=== PATIENT | female | born 1930 | race Caucasian/White ===

== ENCOUNTER 2017-08-05 05:09 | Inpatient (IN) | payer MEDICARE ==
[2017-08-05] MEDS ORDERED: MORPHINE SULFATE 10 MG/ML INJ IV ONE (06:22)
[2017-08-05] MEDS ORDERED: HYDROMORPHONE HCL INJ/PF 2 MG/ML AMPULE IV ONE ×2 (07:13→09:10)
[2017-08-05] MEDS ORDERED: ONDANSETRON HCL INJ/PF 4 MG/2 ML SDV IV ONE (07:55)
--- NOTE | 2017-08-05 07:55 | ER Document Report ---
ED General - General Chief Complaint: Fall Injury Stated Complaint: HIP PAIN Time Seen by Provider: 08/05/17 06:07 Mode of Arrival: Medic Information source: Patient Notes: 87-year-old female history of hypertension presents after mechanical fall with complaints of left hip pain. Patient notes she was unable to stand after the fall. She admits to pain at the left hip denies any weakness or numbness is able to move her toes with no difficulty TRAVEL OUTSIDE OF THE [place] IN LAST 30 DAYS: No - HPI Onset: Just prior to arrival Onset/Duration: Sudden Quality of pain: Achy Severity: Moderate Pain Level: 5 - Patient already given fentanyl prior to arrival Associated symptoms: Body/muscle aches, Other Exacerbated by: Movement Relieved by: Denies Similar symptoms previously: No Recently seen / treated by doctor: No - Related Data Allergies/Adverse Reactions: ceftriaxone [From Rocephin] Allergy (Verified 08/05/17 05:33) codeine [Codeine] Allergy (Verified 08/08/11 16:45) Home Medications: Current Home Medications Fluticasone/Salmeterol [Advair 250-50 Diskus 14 Dose/Diskus] 1 puff IH Q12 08/05 [History] Furosemide [Lasix 20 mg Tablet] 20 mg PO DAILYP PRN 08/05/17 [History] Ibuprofen [Motrin 400 mg Tablet] 400 mg PO Q12 08/05/17 [History] Lisinopril [Prinivil 10 mg Tablet] 10 mg PO DAILY 08/05/17 [History] Melatonin [Melatin] 3 mg PO QHS 08/05/17 [History] Multivitamin [Animal Shapes Vitamins] 1 tab PO DAILY 08/05/17 [History] Omeprazole 40 mg PO BIDBS 08/05/17 [History] Paroxetine HCl [Paxil] 10 mg PO QAM 08/05/17 [History] Potassium Gluconate [Potassium] 99 mg PO DAILY 08/05/17 [History] Prednisone [Deltasone 5 mg Tablet] 7.5 mg PO DAILY 08/05/17 [History] Tiotropium [place] [Spiriva [place] 5 Cap/Kit (18 Mcg/Cap)] 1 puff IH DAILY 08/05/17 [History] Tramadol HCl [Ultram 50 mg Tablet] 50 mg PO Q12HP PRN 08/05/17 [History] Past Medical History - Social History Smoking Status: Unknown if Ever Smoked Cigarette use (# per day): No Chew tobacco use (# tins/day): No Smoking Education Provided: No Family History: Reviewed & Not Pertinent Patient has suicidal ideation: No Patient has homicidal ideation: No Renal/ Medical History: Denies: Hx Peritoneal Dialysis Musculoskeltal Medical History: Reports Hx Arthritis Past Surgical History: Reports: Hx Appendectomy, Hx Cholecystectomy, Hx Hysterectomy - partial - Immunizations Hx Diphtheria, Pertussis, Tetanus Vaccination: No Review of Systems - Review of Systems Notes: REVIEW OF SYSTEMS: CONSTITUTIONAL : Denies fever, chills, or sweats. Denies recent illness. EENT: Denies eye, ear, throat, or mouth pain or symptoms. Denies nasal or sinus congestion or discharge. Denies throat, tongue, or mouth swelling or difficulty swallowing. CARDIOVASCULAR: Denies chest pain. Denies palpitations or racing or irregular heart beat. Denies ankle edema. RESPIRATORY: Denies cough, cold, or chest congestion. Denies shortness of breath, difficulty breathing, or wheezing. GASTROINTESTINAL: Denies abdominal pain or distention. Denies nausea, vomiting , or diarrhea. Denies blood in vomitus, stools, or per rectum. Denies black, tarry stools. Denies constipation. GENITOURINARY: Denies difficulty urinating, painful urination, burning, frequency, blood in urine, or discharge. FEMALE GENITOURINARY: Denies vaginal bleeding, heavy or abnormal periods, irregular periods. Denies vaginal discharge or odor. MUSCULOSKELETAL: Admits to left hip pain SKIN: Denies rash, lesions or sores. HEMATOLOGIC : Denies easy bruising or bleeding. LYMPHATIC: Denies swollen, enlarged glands. NEUROLOGICAL: Denies confusion or altered mental status. Denies passing out or loss of consciousness. Denies dizziness or lightheadedness. Denies headache. Denies weakness or paralysis or loss of use of either side. Denies problems with gait or speech. Denies sensory loss, numbness, or tingling. Denies seizures. PSYCHIATRIC: Denies anxiety or stress. Denies depression, suicidal ideation, or homicidal ideation. ALL OTHER SYSTEMS REVIEWED AND NEGATIVE. PHYSICAL EXAMINATION: GENERAL: Well-appearing, well-nourished and in no acute distress. HEAD: Atraumatic, normocephalic. EYES: Pupils equal round and reactive to light, extraocular movements intact, conjunctiva are normal. ENT: Nares patent, oropharynx clear without exudates. Moist mucous membranes. NECK: Normal range of motion, supple without lymphadenopathy LUNGS: Breath sounds clear to auscultation bilaterally and equal. No wheezes rales or rhonchi. HEART: Regular rate and rhythm without murmurs ABDOMEN: Soft, nontender, nondistended abdomen. No guarding, no rebound. No masses appreciated. Female : deferred Musculoskeletal: Tenderness on palpation of the left hip, limited range of motion of the leg secondary to pain NEUROLOGICAL: Cranial nerves grossly intact. Normal speech, normal gait. Normal sensory, motor exams PSYCH: Normal mood, normal affect. SKIN: Warm, Dry, normal turgor, no rashes or lesions noted. Dictation was performed using [employer] recognition software Physical Exam - Vital signs Vitals: Temp Pulse Resp BP Pulse Ox 97.4 F 90 18 171/66 H 97 08/05/17 05:22 08/05/17 05:22 08/05/17 05:22 08/05/17 05:22 08/05/17 05:22 Course - Re-evaluation Re-evalutation: 08/05/17 09:27 ortho paged after x-ray noted a fracture 08/05/17 15:56 Patient had been admitted to the hospitalist service, I spoke with Dr. manley who will be consulted for orthopedic treatment - Vital Signs Vital signs: Temp Pulse Resp BP Pulse Ox 97.4 F 90 18 140/58 H 96 08/05/17 05:22 08/05/17 05:22 08/05/17 05:22 08/05/17 12:01 08/05/17 12:01 - Laboratory Result Diagrams: 08/05/17 14:35 08/05/17 14:35 - Diagnostic Test Radiology reviewed: Image reviewed, Reports reviewed Discharge - Discharge Clinical Impression: Hip fracture Qualifiers: Encounter type: initial encounter Fracture type: closed Laterality: left Qualified Code(s): S72.002A - Fracture of unspecified part of neck of left femur , initial encounter for closed fracture Fall Qualifiers: Encounter type: initial encounter Qualified Code(s): W19.XXXA - Unspecified fall, initial encounter Fracture of femoral neck, left Qualifiers: Encounter type: initial encounter Fracture type: closed Qualified Code(s): S72.002A - Fracture of unspecified part of neck of left femur, initial encounter for closed fracture Condition: Stable Disposition: ADMITTED INPATIENT Admitting Provider: Hospitalist Unit Admitted: Telemetry
--- NOTE | 2017-08-05 08:45 | RADIOLOGY REPORT (SQ) ---
EXAM DESCRIPTION: HIP BILATERAL COMPLETED DATE/TIME: 08/05/2017 7:54 am REASON FOR STUDY: fall COMPARISON: None. NUMBER OF VIEWS: Two views. TECHNIQUE: AP pelvis and additional frog-leg view of the right and left hip. LIMITATIONS: None. FINDINGS: MINERALIZATION: Osteoporotic RIGHT HIP: No fracture or dislocation. No significant joint space narrowing or bulky bony spurring N o worrisome bone lesions. LEFT HIP: Acute left subcapital femoral neck fracture with varus angulation and foreshortening. PUBIS AND ISCHIUM: No fracture. PELVIS: No fracture. SACRUM: No fracture or dislocation. No worrisome bone lesions. LOWER LUMBAR SPINE: Lower lumbar fusion SOFT TISSUES: Rectosigmoid anastomotic reshma. Multiple laparoscopic tacks over the lower anterior abdominal wall post ventral hernia repair OTHER: No other significant finding. IMPRESSION: Acute left subcapital femoral neck fracture with varus angulation and foreshortening at the fracture site TECHNICAL DOCUMENTATION: JOB ID: [id number] [employer]- All Rights Reserved
[2017-08-05] MEDS ORDERED: ACETAMINOPHEN 325 MG TABLET PO PRN (09:47)
[2017-08-05] MEDS ORDERED: ONDANSETRON HCL INJ/PF 4 MG/2 ML SDV IV PRN (09:47)
--- NOTE | 2017-08-05 10:58 | PDOC CONSULTATION ---
History of Present Illness Admission Date/PCP: 08/05/17 09:53 History of Present Illness: MARJORIE GOMEZ is a 87 year old female who presents to the emergency department with a femoral neck fracture status post a fall in her home while trying to leaf size picker ice in her kitchen. Past Medical History Musculoskeltal Medical History: Reports: Arthritis Past Surgical History Past Surgical History: Reports: Appendectomy, Cholecystectomy, Hysterectomy - partial Social History Smoking Status: Former Smoker Family History Parental Family History Reviewed: Yes Children Family History Reviewed: Yes Sibling(s) Family History Reviewed.: Yes Medication/Allergy Home Medications: Aspirin [Aspirin 325 mg Tablet] 325 mg PO QHS 08/08/11 Calcium Carbonate [Calcium] 1,000 mg PO BID 08/08/11 Calcium Carbonate [Maalox Regular Strength] 600 mg PO QHS 08/08/11 Fluticasone/Salmeterol [Advair 250-50 Diskus] 1 puff IH DAILY 08/08/11 Garlic [Garlic Oil] 1,000 mg PO DAILY 08/08/11 Hydroxychloroquine Sulfate 200 mg PO DAILY 08/08/11 Lisinopril [Prinivil 10 mg Tablet] 10 mg PO DAILY 08/08/11 Magnesium Oxide [Magnesium] 500 mg PO DAILY 08/08/11 [place]-3 Fatty Acids/Fish Oil [Fish Oil 1,000 Mg Capsule] 1 each PO DAILY Paroxetine HCl 10 mg PO DAILY 08/08/11 Potassium Gluconate 99 mg PO DAILY 08/08/11 Quinine Sulfate 325 mg PO 08/08/11 Tiotropium [place] [Spiriva] 18 mcg IH DAILY 08/08/11 Tramadol HCl [Ultram 50 mg Tablet] 50 mg PO BID 08/08/11 Zolpidem Tartrate [Ambien 5 Mg Tablet] 5 mg PO QHS 08/08/11 Allergies/Adverse Reactions: ceftriaxone [From Rocephin] Allergy (Verified 08/05/17 05:33) codeine [Codeine] Allergy (Verified 08/08/11 16:45) Physical Exam Vital Signs: Temp Pulse Resp BP Pulse Ox 36.3 C 90 18 171/66 H 98 08/05/17 05:22 08/05/17 05:22 08/05/17 05:22 08/05/17 05:22 08/05/17 06:00 General appearance: PRESENT: mild distress, well-developed, well-nourished Head exam: PRESENT: atraumatic, normocephalic Respiratory exam: PRESENT: unlabored Pulses: PRESENT: normal dorsalis pedis pul, +2 pedal pulses bilateral Vascular exam: PRESENT: normal capillary refill Additional comments: Patient lying on her right side in hospital bed with left hip in flexion and with slight internal rotation. Patient is asleep when I entered the room however was arousable when asked direct questions. On exam patient's left hip is tender to palpation along the greater trochanter and down the lateral aspect of the femur. She is nonambulatory and due to pain with initiation of motion was not able to complete strength range of motion test of the left hip. There was brisk capillary refill to toes on bilateral lower extremities and she has minimal pedal edema. Her distal neurovascular exam is intact and her sensory and motor functions are intact. Additional comments: As stated before patient is nonambulatory due to pain with weightbearing and ambulation. Patient will remain nonweightbearing status until the date of her surgery to prevent further angulation of her fracture. As stated her distal neurovascular exam is intact. Neurological exam: PRESENT: alert, awake, oriented to person, oriented to place , oriented to time, oriented to situation, CN II-XII grossly intact. ABSENT: motor sensory deficit Psychiatric exam: PRESENT: appropriate affect, normal mood. ABSENT: homicidal ideation, suicidal ideation Skin exam: PRESENT: dry, intact, warm. ABSENT: cyanosis, rash Results Impressions: Hip X-Ray 08/05/17 06:07 IMPRESSION: Acute left subcapital femoral neck fracture with varus angulation and foreshortening at the fracture site Assessment & Plan - Diagnosis (1) Fracture of femoral neck, left Qualifiers: Encounter type: initial encounter Fracture type: closed Qualified Code(s) : S72.002A - Fracture of unspecified part of neck of left femur, initial encounter for closed fracture Is this a current diagnosis for this admission?: Yes - Plan Summary Plan Summary: 87-year-old white female who presented to the emergency department with a left femoral neck fracture status post a fall in her home while picking up ice. She will be admitted as an inpatient to the hospital where she will remain nonweightbearing status and nonambulatory until the date of her surgery. We will plan for surgery on Saturday to repair the femoral neck fracture with a left hip hemiarthroplasty. She will then be discharged from the hospital later this week.
[2017-08-05] MEDS ORDERED: HYDROMORPHONE HCL INJ/PF 2 MG/ML AMPULE IV PRN (12:22)
[2017-08-05] MEDS ORDERED: NALOXONE HCL INJ/PF 0.4 MG/1 ML SDV ONE (14:34)
[2017-08-05] MEDS ORDERED: NALOXONE HCL INJ/PF 0.4 MG/1 ML SDV IV ONE (14:45)
[2017-08-05 15:10] LABS: MEAN CORPUSCULAR HEMOGLOBIN 30.3 pg (27.0-33.4); MEAN CORPUSCULAR HGB CONC 33.3 g/dL (32.0-36.0); MEAN CORPUSCULAR VOLUME 91 fl (80-97); RED BLOOD COUNT 4.28 10^6/uL (3.72-5.28); RED CELL DISTRIBUTION WIDTH 14.8 % (11.5-14.0); WHITE BLOOD COUNT 17.1 10^3/uL (4.0-10.5)
[2017-08-05 15:37] LABS: ANION GAP 10 (5-19); BLOOD UREA NITROGEN 29 mg/dL (7-20); CALCIUM 9.4 mg/dL (8.4-10.2); CARBON DIOXIDE 28 mmol/L (22-30); CHLORIDE 107 mmol/L (98-107); CREATININE RESULT 0.63 mg/dL (0.52-1.25); GLUCOSE 138 mg/dL (75-110); POTASSIUM 4.6 mmol/L (3.6-5.0); SODIUM 144.7 mmol/L (137-145)
--- NOTE | 2017-08-05 16:35 | RADIOLOGY REPORT (SQ) ---
EXAM DESCRIPTION: CHEST SINGLE VIEW COMPLETED DATE/TIME: 08/05/2017 4:21 pm REASON FOR STUDY: Dyspnea, hypoxia COMPARISON: 08/08/2011 EXAM PARAMETERS: NUMBER OF VIEWS: One view. TECHNIQUE: Single frontal radiographic view of the chest acquired. RADIATION DOSE: NA LIMITATIONS: None. FINDINGS: LUNGS AND PLEURA: There is ill-defined opacification in the upper lobes. MEDIASTINUM AND HILAR STRUCTURES: There appears to be a large hiatal hernia. HEART AND VASCULAR STRUCTURES: Heart normal in size. Normal vasculature. BONES: There are rib fractures on the left of uncertain age. HARDWARE: None in the chest. OTHER: No other significant finding. IMPRESSION: Hiatal hernia. Cannot exclude upper lobe pneumonia on either side. Left rib fractures of uncertain age. TECHNICAL DOCUMENTATION: JOB ID: [id number] [employer]- All Rights Reserved
--- NOTE | 2017-08-05 16:55 | EKG REPORT ---
SEVERITY:- ABNORMAL ECG - SINUS TACHYCARDIA PROBABLE LEFT VENTRICULAR HYPERTROPHY : Confirmed by: Josie Etienne 05-Aug-2017 16:55:07
--- NOTE | 2017-08-05 16:58 | HISTORY AND PHYSICAL E ---
History and Physical NAME: MARJORIE GOMEZ : 1930 AGE: 87Y ADMITTED: 08/05/2017 ROOM: 423 CODE STATUS: DO NOT RESUSCITATE/DO NOT INTUBATE. PRIMARY CARE PROVIDER: Dr. Frye CHIEF COMPLAINT: Fall. HISTORY OF PRESENT ILLNESS: The patient is an 87-year-old female with a past medical history of chronic obstructive pulmonary disease and chronic pain. The patient presented to the emergency department via EMS after sustaining a mechanical fall resulting in a left femur fracture. The patient unfortunately has been unable to provide any history, so history has been obtained by current and previous medical records as well as family that is present at the bedside. Upon evaluation of the patient, she was found to be obtunded with depressed respirations around 6 breaths a minute. The patient was also completely obtunded and unable to respond even to sternal rub. Alerted nursing staff and 0.4 of Narcan was administered and the patient did awaken but was still groggy afterwards. The patient was maintaining her own airway and oxygenating well, and respirations improved to approximately 16-18 breaths a minute. The patient had been quite difficult to get her pain under control. According to the ER physician, the patient was in excruciating pain and required a total of 50 of fentanyl via EMS as well as 6 mg of IV morphine and an additional 2 mg of IV Dilaudid. According to the family, the patient does take tramadol at home and they are suspicious that the patient may have actually been abusing it, so they are uncertain of how much she has had on board. According to the family, the patient has been falling more recently and actually fell a couple of months ago and sustained rib fractures which were treated at Urgent Care. The patient, according to the family, has a history of frequent urinary tract infections as well. Given the findings of fracture, the case was discussed with Dr. Castro and the patient was referred to the hospitalist for admission and management. PAST MEDICAL HISTORY: 1. Chronic obstructive pulmonary disease. 2. Fibromyalgia. 3. History of peptic ulcer disease. PAST SURGICAL HISTORY: 1. Hernia repair. 2. Colon resection. 3. Total knee replacement. ALLERGIES: 1. CEFTRIAXONE. 2. CODEINE. HOME MEDICATIONS: 1. Advair 250/50 one puff inhalation q.12 hours. 2. Lasix 20 mg p.o. daily p.r.n. 3. Motrin 400 mg p.o. q.12 hours. 4. Lisinopril 10 mg p.o. daily. 5. Multivitamin 1 tablet p.o. daily. 6. Omeprazole 40 mg p.o. b.i.d. 7. Paxil 10 mg p.o. q. a.m. 8. Potassium 99 mg p.o. daily. 9. Prednisone 7.5 mg p.o. daily. 10. Spiriva 1 puff inhalation daily. 11. Ultram 50 mg p.o. q.12 hours. SOCIAL HISTORY: The patient currently resides at home alone. The patient is retired. The patient's surrogate decision maker is Mikayla who may be reached at [phone]. The patient has a long history of tobacco use that exceeds 60-year pack history. Denies any alcohol use or illicit drug use. FAMILY MEDICAL HISTORY: Positive for coronary artery disease and stroke. REVIEW OF SYSTEMS: Full review of systems cannot be appreciated given the patient's obtunded state. PHYSICAL EXAMINATION: GENERAL: On examination, the patient is a frail appearing 87-year-old female that was completely obtunded. However, after administration of Narcan, the patient's respiration rate has improved. She will awaken but is unable to provide any history. She does not appear to be in any acute distress at this time. VITAL SIGNS: Temperature is 97.4, pulse 90, respirations 16, blood pressure is 148/61, oxygen saturation is 95% on 3 L nasal cannula. SKIN: Pale and dry. No rash. She is not diaphoretic. HEENT: Pupils are now reactive, previously pinpoint. Conjunctivae are pink. There is no JVD. No mouth lesions. Tongue is midline. Neck is supple. No palpable lymphadenopathy or thyromegaly. CARDIOVASCULAR: Heart is regular with no murmur or rub. CHEST: Clear, symmetrical, unlabored. ABDOMEN: Soft, nontender, nondistended. Bowel sounds are present. BACK: No CVA tenderness or sacral edema. EXTREMITIES: No clubbing, cyanosis, edema, or peripheral signs of embolization. Pedal pulses +2 noted bilaterally. PSYCHIATRIC: Unable to fully assess. DIAGNOSTICS: Lab values are as follow: There are no labs reported at this time. Hip x-ray obtained on 08/05/2017 reveals acute left femoral neck fracture with various aggregation and foreshortening at the fracture site. IMPRESSION AND PLAN: 1. Left hip fracture. Will consult Orthopedist and manage pain judiciously but cautiously given that the patient has had to receive Narcan and follow. 2. Non-intentional opiate overdose. The patient has been reversed with Narcan and is now maintaining her own airway and is breathing sufficiently. 3. Chronic obstructive pulmonary disease exacerbation. Will continue the patient's home medication. 4. Wedaw-qa-dzgseox hypoxemic respiratory failure. It appears that the patient desaturated down to 75 and is now requiring supplemental O2. The patient is steroid dependent but is not currently oxygen dependent at this time. 5. History of peptic ulcer disease. Will resume the patient's dual PPI therapy. 6. Hypertension. Will resume the patient's home blood pressure medication. 7. Preoperative state. Will obtain basic labs on the patient including CBC, chemistry. Will also obtain EKG given the uncertainty of the patient's fall for further guidance. DISPOSITION: The patient is a DO RESUSCITATE/DO NOT INTUBATE. Pending patient's symptomatology and diagnostic findings, will reevaluate in the a.m. Will admit the patient to inpatient telemetry as the patient's expected length of stay will surpass 2 midnights. Time spent on this admission including assessment, plan, physical examination, attempt at patient education, family meeting, specialty collaboration is 60 minutes. ADDENDUM: Upon review of the patient's CBC, it appears that her white count is elevated to 17.1. The patient's chemistries are relatively unremarkable. The patient appears to be euvolemic. Will obtain urine culture given that the patient does have a history of frequent urinary tract infections and will also add blood cultures. Given the patient's respiratory depression although most likely opiate induced, will obtain a chest x-ray as well. EKG is still pending. Time spent on this followup includes 10 minutes. DICTATING PHYSICIAN: JACQUES JESUS NP [id number] PHY#: [id number] ID: [id number] JOB#: [id number] ACCT: [id number] cc:JACQUES JESUS NP > [facility]
[2017-08-05] MEDS ORDERED: LEVOFLOXACIN 500 MG TABLET PO SCH (17:15)
[2017-08-05] MEDS: HEPARIN SOD (PORCINE) 5,000 UNIT/ML 1 ML SYRINGE SUBCUT SCH ×2 (17:30→21:47)
[2017-08-05] MEDS: DOCUSATE SODIUM 100 MG CAPSULE PO SCH ×2 (17:30→17:37)
[2017-08-05] MEDS: LANSOPRAZOLE 30 MG TAB.RAP.DR PO SCH (17:37)
[2017-08-05] MEDS ORDERED: LEVOFLOXACIN 500 MG/D5W RTU 500 MG/100 ML RTUPB IV SCH (18:00)
[2017-08-05] MEDS: 1/2 NORMAL SALINE 1,000 ML IV PRN (18:18)
[2017-08-05] MEDS: LEVOFLOXACIN 500 MG TABLET PO SCH (18:18)
[2017-08-05 19:50] LABS: APPEARANCE,URINE CLEAR; BILIRUBIN,URINE NEGATIVE (NEGATIVE); GLUCOSE, URINE NEGATIVE (NEGATIVE); KETONES,URINE TRACE mg/dL (NEGATIVE); LEUKOCYTE ESTERASE,URINE NEGATIVE (NEGATIVE); NITRITE,URINE NEGATIVE (NEGATIVE); PROTEIN,URINE NEGATIVE (NEGATIVE); URINE SPECIFIC GRAVITY 1.012; UROBILINOGEN,URINE NEGATIVE mg/dL (<2.0)
[2017-08-05] MEDS: FLUTICASONE/SALMETEROL DISKUS 250-50 MCG/DOSE IH SCH (21:47)
[2017-08-05] MEDS: TRAMADOL HCL 50 MG TABLET PO PRN (21:47)
[2017-08-06] MEDS: HYDROMORPHONE HCL INJ/PF 2 MG/ML AMPULE IV PRN ×2 (02:15→09:25)
[2017-08-06 05:08] LABS: HEMATOCRIT 36.7 % (36.0-47.0); HEMOGLOBIN 12.3 g/dL (12.0-15.5); HGB HCT DIFFERENCE 0.2; MEAN CORPUSCULAR HEMOGLOBIN 30.2 pg (27.0-33.4); MEAN CORPUSCULAR HGB CONC 33.4 g/dL (32.0-36.0); MEAN CORPUSCULAR VOLUME 90 fl (80-97); RED BLOOD COUNT 4.06 10^6/uL (3.72-5.28); WHITE BLOOD COUNT 15.2 10^3/uL (4.0-10.5)
[2017-08-06 05:34] LABS: ANION GAP 15 (5-19); BLOOD UREA NITROGEN 30 mg/dL (7-20); CALCIUM 9.3 mg/dL (8.4-10.2); CARBON DIOXIDE 22 mmol/L (22-30); CHLORIDE 107 mmol/L (98-107); GLUCOSE 87 mg/dL (75-110); POTASSIUM 4.6 mmol/L (3.6-5.0); SODIUM 144.4 mmol/L (137-145)
[2017-08-06] MEDS: HEPARIN SOD (PORCINE) 5,000 UNIT/ML 1 ML SYRINGE SUBCUT SCH ×3 (06:45→23:22)
[2017-08-06] MEDS: LANSOPRAZOLE 30 MG TAB.RAP.DR PO SCH ×2 (06:45→17:52)
--- NOTE | 2017-08-06 06:51 | PDOC PROGRESS REPORT ---
Subjective Progress Note for:: 08/06/17 Subjective:: 87-year-old white female with femoral neck fracture lying recumbent in hospital bed on her right side this morning. Patient reports that she is more comfortable and has noticed a decrease in the edema about the left hip. Physical Exam Vital Signs: Temp Pulse Resp BP Pulse Ox 37.0 C 108 H 16 114/80 95 08/06/17 04:17 08/06/17 04:17 08/06/17 04:17 08/06/17 04:17 08/06/17 04:17 Intake & Output 08/04/17 08/05/17 08/06/17 06:59 06:59 06:59 Intake Total 118 Output Total 1000 Balance -882 Weight 95.3 kg General appearance: PRESENT: no acute distress, well-developed, well-nourished Head exam: PRESENT: atraumatic, normocephalic Respiratory exam: PRESENT: unlabored Additional comments: Patient has nasal cannula in place. Pulses: PRESENT: normal dorsalis pedis pul, +2 pedal pulses bilateral Additional comments: Patient lying recumbent in hospital bed on her right side. She is less tender to palpation and not as edematous about the left hip as when examined yesterday. She has brisk capillary refill 2 feet on bilateral extremities her distal neurovascular exam is intact and her sensory motor functions are intact. She remains nonambulatory. Additional comments: Patient remains nonambulatory. Neurological exam: PRESENT: alert, awake, oriented to person, oriented to place , oriented to time, oriented to situation, CN II-XII grossly intact. ABSENT: motor sensory deficit Psychiatric exam: PRESENT: appropriate affect, normal mood. ABSENT: homicidal ideation, suicidal ideation Skin exam: PRESENT: dry, intact, warm. ABSENT: cyanosis, rash Additional comments: Ecchymosis is noted on previous exam is still present however has not progressed. Results Laboratory Results: 08/06/17 04:48 08/06/17 04:48 08/05/17 08/05/17 08/05/17 14:35 14:35 19:00 WBC 17.1 H RBC 4.28 Hgb 13.0 Hct 39.0 MCV 91 MCH 30.3 MCHC 33.3 RDW 14.8 H Plt Count 238 Sodium 144.7 Potassium 4.6 Chloride 107 Carbon Dioxide 28 Anion Gap 10 BUN 29 H Creatinine 0.63 Est GFR ( Amer) > 60 Est GFR (Non-Af Amer) > 60 Glucose 138 H Calcium 9.4 Urine Color YELLOW Urine Appearance CLEAR Urine pH 5.0 Ur Specific [place] 1.012 Urine Protein NEGATIVE Urine Glucose (UA) NEGATIVE Urine Ketones TRACE H Urine Blood NEGATIVE Urine Nitrite NEGATIVE Ur Leukocyte Esterase NEGATIVE Urine RBC (Auto) 0 08/06/17 08/06/17 04:48 04:48 WBC 15.2 H RBC 4.06 Hgb 12.3 Hct 36.7 MCV 90 MCH 30.2 MCHC 33.4 RDW 15.0 H Plt Count 207 Sodium 144.4 Potassium 4.6 Chloride 107 Carbon Dioxide 22 Anion Gap 15 BUN 30 H Creatinine 0.60 Est GFR ( Amer) > 60 Est GFR (Non-Af Amer) > 60 Glucose 87 Calcium 9.3 Urine Color Urine Appearance Urine pH Ur Specific [place] Urine Protein Urine Glucose (UA) Urine Ketones Urine Blood Urine Nitrite Ur Leukocyte Esterase Urine RBC (Auto) Impressions: Chest X-Ray 08/05/17 00:00 IMPRESSION: Hiatal hernia. Cannot exclude upper lobe pneumonia on either side. Left rib fractures of uncertain age. Hip X-Ray 08/05/17 06:07 IMPRESSION: Acute left subcapital femoral neck fracture with varus angulation and foreshortening at the fracture site Assessment & Plan - Diagnosis (1) Fracture of femoral neck, left Qualifiers: Encounter type: initial encounter Fracture type: closed Qualified Code(s) : S72.002A - Fracture of unspecified part of neck of left femur, initial encounter for closed fracture Is this a current diagnosis for this admission?: Yes - Plan Summary Plan Summary: 87-year-old white female with left femoral neck fracture who will remain nonambulatory until she has obtained clearance for surgery. We will plan for left hip hemiarthroplasty likely on Saturday.
[2017-08-06] MEDS ORDERED: (PENDING PHARMACY ID) (Paroxetine Hcl [Paxil] 10 MG) PO SCH (08:00)
[2017-08-06] MEDS: DOCUSATE SODIUM 100 MG CAPSULE PO SCH ×2 (09:27→17:52)
[2017-08-06] MEDS: PAROXETINE HCL 20 MG TABLET PO SCH (09:28)
[2017-08-06] MEDS: PREDNISONE 5 MG TABLET PO SCH (09:28)
[2017-08-06] MEDS: MULTIVITAMIN TABLET PO SCH (09:28)
[2017-08-06] MEDS: FLUTICASONE/SALMETEROL DISKUS 250-50 MCG/DOSE IH SCH ×2 (09:29→23:22)
[2017-08-06] MEDS: LISINOPRIL 10 MG TABLET PO SCH (09:29)
[2017-08-06] MEDS: TIOTROPIUM BROMIDE DPI 5 CAP/KIT (18 MCG/CAP) IH SCH (09:30)
[2017-08-06] MEDS ORDERED: MULTIVITAMIN PO SCH (10:00)
--- NOTE | 2017-08-06 11:42 | PDOC PROGRESS REPORT ---
Subjective Progress Note for:: 08/06/17 Subjective:: Pt is seen on morning rounds with her adult son present. She states that her hip pain is relatively well controlled if she remains in a right-side lying position. However, she reports that this positioning has caused her to have abdominal and chest discomfort described as "fullness" that the patient r/t her hiatal hernia. She denies typical cardiac chest pain symptoms, palpitations, and dyspnea. She does report a productive cough, which she states is chronic for her and no worse than her normal. She is very frustrated by the multiple lines/cables. She asks to have the telemetry, continuous pulse ox, oxygen and IV lines all discontinued. A long discussion was had with regards to importance of continued monitoring for patient's safety, especially in consideration of her poor respiratory tolerance of narcotic pain medications. She has numerous questions regarding the risks and benefits of her planned hips surgery and initially requests to be transferred to [place] to obtain a second opinion. Pt was reassured and all questions were answered; she is now accepting of planned procedure with Dr. Lopes. Pt and family member are encouraged to let nursing know if they have further questions and I will return to speak with them. Physical Exam Vital Signs: Temp Pulse Resp BP Pulse Ox 99.0 F 106 H 15 132/57 H 93 08/06/17 07:36 08/06/17 07:36 08/06/17 07:36 08/06/17 07:36 08/06/17 07:36 Intake & Output 08/05/17 08/06/17 08/07/17 06:59 06:59 06:59 Intake Total 718 Output Total 1300 Balance -582 Weight 95.3 kg General appearance: PRESENT: no acute distress, well-developed, well-nourished, other - frail appearing Head exam: PRESENT: atraumatic, normocephalic Eye exam: PRESENT: conjunctiva pink, EOMI, PERRLA. ABSENT: scleral icterus Ear exam: PRESENT: normal external ear exam Mouth exam: PRESENT: moist, tongue midline Neck exam: ABSENT: carotid bruit, JVD, lymphadenopathy, thyromegaly Respiratory exam: PRESENT: clear to auscultation benji, symmetrical, unlabored. ABSENT: crackles, rales, rhonchi, tachypnea, wheezes Cardiovascular exam: PRESENT: RRR. ABSENT: diastolic murmur, rubs, systolic murmur, tachycardia Pulses: PRESENT: normal dorsalis pedis pul Vascular exam: PRESENT: normal capillary refill GI/Abdominal exam: PRESENT: normal bowel sounds, soft. ABSENT: distended, guarding, mass, organolmegaly, rebound, tenderness Rectal exam: PRESENT: deferred Extremities exam: PRESENT: tenderness - Lt hip. ABSENT: calf tenderness, clubbing, full ROM - Lt lower extremity 2/2 pain, pedal edema Neurological exam: PRESENT: alert, awake, oriented to person, oriented to place , oriented to time, oriented to situation, CN II-XII grossly intact. ABSENT: motor sensory deficit Psychiatric exam: PRESENT: agitated, anxious, appropriate affect. ABSENT: homicidal ideation, suicidal ideation Skin exam: PRESENT: dry, intact, warm. ABSENT: cyanosis, rash Results Laboratory Results: 08/06/17 04:48 08/06/17 04:48 08/05/17 08/05/17 08/05/17 14:35 14:35 19:00 WBC 17.1 H RBC 4.28 Hgb 13.0 Hct 39.0 MCV 91 MCH 30.3 MCHC 33.3 RDW 14.8 H Plt Count 238 Sodium 144.7 Potassium 4.6 Chloride 107 Carbon Dioxide 28 Anion Gap 10 BUN 29 H Creatinine 0.63 Est GFR ( Amer) > 60 Est GFR (Non-Af Amer) > 60 Glucose 138 H Calcium 9.4 Urine Color YELLOW Urine Appearance CLEAR Urine pH 5.0 Ur Specific [place] 1.012 Urine Protein NEGATIVE Urine Glucose (UA) NEGATIVE Urine Ketones TRACE H Urine Blood NEGATIVE Urine Nitrite NEGATIVE Ur Leukocyte Esterase NEGATIVE Urine RBC (Auto) 0 08/06/17 08/06/17 04:48 04:48 WBC 15.2 H RBC 4.06 Hgb 12.3 Hct 36.7 MCV 90 MCH 30.2 MCHC 33.4 RDW 15.0 H Plt Count 207 Sodium 144.4 Potassium 4.6 Chloride 107 Carbon Dioxide 22 Anion Gap 15 BUN 30 H Creatinine 0.60 Est GFR ( Amer) > 60 Est GFR (Non-Af Amer) > 60 Glucose 87 Calcium 9.3 Urine Color Urine Appearance Urine pH Ur Specific [place] Urine Protein Urine Glucose (UA) Urine Ketones Urine Blood Urine Nitrite Ur Leukocyte Esterase Urine RBC (Auto) Impressions: Chest X-Ray 08/05/17 00:00 IMPRESSION: Hiatal hernia. Cannot exclude upper lobe pneumonia on either side. Left rib fractures of uncertain age. Hip X-Ray 08/05/17 06:07 IMPRESSION: Acute left subcapital femoral neck fracture with varus angulation and foreshortening at the fracture site Assessment & Plan - Diagnosis (1) Leukocytosis Qualifiers: Leukocytosis type: unspecified Qualified Code(s): D72.829 - Elevated white blood cell count, unspecified Is this a current diagnosis for this admission?: Yes Plan: Improving (17.1-->15.2); may be partially an inflammatory response r/t hip fracture. However, pt reports multiple left rib fractures several weeks ago and development of a productive cough in the setting of COPD. Chest xray completed in the ED could not exclude an upper lobe pneumonia. Urine culture: NGTD Blood culture: Pending 1- Will empirically cover with Levaquin for CAP (2) Fracture of femoral neck, left Qualifiers: Encounter type: initial encounter Fracture type: closed Qualified Code(s) : S72.002A - Fracture of unspecified part of neck of left femur, initial encounter for closed fracture Is this a current diagnosis for this admission?: Yes Plan: 1-orthopedics consulted; planned repair tomorrow with Dr. Lopes (3) Overdose of opiate or related narcotic Qualifiers: Encounter type: subsequent encounter Injury intent: accidental or unintentional Qualified Code(s): T40.601D - Poisoning by unspecified narcotics , accidental (unintentional), subsequent encounter Is this a current diagnosis for this admission?: Yes Plan: Pt was noted to have poor respiratory effort and hypoxemia shortly after arrival from ED and was provided one dose of Narcan with acceptable response. She will remain on continuous pulse oximetry while receiving IV narcotic pain medications. (4) COPD (chronic obstructive pulmonary disease) Qualifiers: COPD type: unspecified COPD Qualified Code(s): J44.9 - Chronic obstructive pulmonary disease, unspecified Is this a current diagnosis for this admission?: Yes Plan: Continue home regiment; Advair, Spiriva, chronic Prednisone (5) Acute and chronic respiratory failure Qualifiers: Respiratory failure complication: hypoxia Qualified Code(s): J96.21 - Acute and chronic respiratory failure with hypoxia Is this a current diagnosis for this admission?: Yes Plan: Improved. Pt initially desaturated down to 75 and required supplemental oxygen. She is steroid dependent but does not use home oxygen. (6) History of peptic ulcer disease Is this a current diagnosis for this admission?: Yes Plan: Continue Prevacid. (7) Hiatal hernia with GERD Is this a current diagnosis for this admission?: Yes Plan: As above; hopefully pt's symptoms will improve once the hip is repaired and she can be comfortably positioned with HOB elevated. (8) Hypertension Qualifiers: Hypertension type: essential hypertension Qualified Code(s): I10 - Essential (primary) hypertension Is this a current diagnosis for this admission?: Yes Plan: HTN improved today; remains elevated but is now acceptable given pt's age. 1- Continue home regiment; lisinopril (9) Pre-operative anxiety Is this a current diagnosis for this admission?: Yes Plan: Long discussion had with patient and adult son with regard to risks and benefits of planned hip surgery by Dr. Lopes. Encouraged pt and family to discuss with nursing any further questions and assured pt that I would return to answer questions if she requested. 1- Continue home regiment; Paxil - Time Time Spent with patient: 35 or more minutes Medications reviewed and adjusted accordingly: Yes
[2017-08-06] MEDS: 1/2 NORMAL SALINE 1,000 ML IV PRN (14:28)
[2017-08-06] MEDS: LEVOFLOXACIN 500 MG TABLET PO SCH (17:52)
[2017-08-06] MEDS: TRAMADOL HCL 50 MG TABLET PO PRN (23:24)
[2017-08-07] MEDS ORDERED: VANCOMYCIN HCL 1,000 MG in DEXTROSE 5%-WATER 250 ML IV PRN (05:00)
[2017-08-07] MEDS ORDERED: RINGERS SOLUTION,LACTATED 1,000 ML IV PRN (05:00)
[2017-08-07] MEDS ORDERED: TRANEXAMIC ACID INJ/PF 1,000 MG/10 ML SDV IV PRN (05:00)
[2017-08-07] MEDS: HEPARIN SOD (PORCINE) 5,000 UNIT/ML 1 ML SYRINGE SUBCUT SCH ×3 (05:19→21:57)
[2017-08-07] MEDS: LANSOPRAZOLE 30 MG TAB.RAP.DR PO SCH ×2 (05:19→17:50)
[2017-08-07] MEDS: HYDROMORPHONE HCL INJ/PF 2 MG/ML AMPULE IV PRN (05:49)
[2017-08-07 06:34] LABS: HEMATOCRIT 36.9 % (36.0-47.0); HEMOGLOBIN 12.4 g/dL (12.0-15.5); HGB HCT DIFFERENCE 0.3; MEAN CORPUSCULAR HGB CONC 33.7 g/dL (32.0-36.0); MEAN CORPUSCULAR VOLUME 89 fl (80-97); RED BLOOD COUNT 4.15 10^6/uL (3.72-5.28); RED CELL DISTRIBUTION WIDTH 14.5 % (11.5-14.0); WHITE BLOOD COUNT 15.7 10^3/uL (4.0-10.5)
[2017-08-07 06:48] LABS: ANION GAP 11 (5-19); BLOOD UREA NITROGEN 37 mg/dL (7-20); CALCIUM 9.9 mg/dL (8.4-10.2); CARBON DIOXIDE 24 mmol/L (22-30); CHLORIDE 103 mmol/L (98-107); CREATININE RESULT 0.57 mg/dL (0.52-1.25); GLUCOSE 105 mg/dL (75-110); POTASSIUM 4.3 mmol/L (3.6-5.0); SODIUM 138.4 mmol/L (137-145)
[2017-08-07 09:07] LABS: PARTIAL THROMBOPLASTIN TIME 29.1 SEC (23.5-35.8)
[2017-08-07] MEDS: TIOTROPIUM BROMIDE DPI 5 CAP/KIT (18 MCG/CAP) IH SCH (11:18)
[2017-08-07] MEDS: DOCUSATE SODIUM 100 MG CAPSULE PO SCH ×2 (11:18→17:50)
[2017-08-07] MEDS: FLUTICASONE/SALMETEROL DISKUS 250-50 MCG/DOSE IH SCH ×2 (11:18→21:57)
--- NOTE | 2017-08-07 12:08 | RADIOLOGY REPORT (SQ) ---
EXAM DESCRIPTION: CHEST PA/LAT COMPLETED DATE/TIME: 08/07/2017 11:48 am REASON FOR STUDY: preop COMPARISON: 08/05/2017 EXAM PARAMETERS: NUMBER OF VIEWS: two views TECHNIQUE: Digital Frontal and Lateral radiographic views of the chest acquired. RADIATION DOSE: NA LIMITATIONS: none FINDINGS: LUNGS AND PLEURA: There appear to be chronic interstitial changes. Improved aeration of t he upper lobes, particularly on the right. No definite infiltrate is seen. MEDIASTINUM AND HILAR STRUCTURES: There is a large hiatal hernia. HEART AND VASCULAR STRUCTURES: Heart normal size. No evidence for failure. BONES: Significantly increased dorsal kyphosis. Rib fractures on the left. HARDWARE: None in the chest. OTHER: No other significant finding. IMPRESSION: 1. Chronic lung changes. 2. Large hiatal hernia. 3. Increased dorsal kyphosis and r ib fractures. TECHNICAL DOCUMENTATION: JOB ID: [id number] [employer]- All Rights Reserved
[2017-08-07] MEDS ORDERED: THROMBIN (BOVINE) 5000 UNIT EPITAXIS KIT ONE (13:02)
[2017-08-07] MEDS ORDERED: BUPIVACAINE INJ/PF LIPOSOME/PF 266 MG/20 ML SDV ONE (13:02)
[2017-08-07] MEDS ORDERED: THROMBIN (BOVINE) TOPICAL 20000 UNIT VIAL ONE (13:02)
[2017-08-07] MEDS ORDERED: MIDAZOLAM 2 MG/2 ML INJ ONE (13:04)
[2017-08-07] MEDS ORDERED: FENTANYL CITRATE INJ/PF 100 MCG/2 ML AMPUL ONE (13:04)
[2017-08-07] MEDS ORDERED: PROPOFOL INJ 200 MG/20 ML VIAL IV ONE (13:05)
[2017-08-07] MEDS ORDERED: ACETAMINOPHEN 0 ML IV ONE (13:05)
[2017-08-07] MEDS ORDERED: TRANEXAMIC ACID INJ/PF 1,000 MG/10 ML SDV IV ONE (13:20)
[2017-08-07] MEDS: LISINOPRIL 10 MG TABLET PO SCH (16:36)
[2017-08-07] MEDS: PREDNISONE 5 MG TABLET PO SCH (16:36)
[2017-08-07] MEDS: MULTIVITAMIN TABLET PO SCH (16:36)
[2017-08-07] MEDS: PAROXETINE HCL 20 MG TABLET PO SCH (16:36)
--- NOTE | 2017-08-07 17:12 | PDOC PROGRESS REPORT ---
Subjective Progress Note for:: 08/07/17 Subjective:: Patient was seen while in preop after having received a call from Dr. Lopes. The patient became upset during her preoperative period due to numerous staff members asking her the same questions repetitively. She felt that the staff was unfamiliar with her medical history and therefore not prepared to care for her during the hip or placement. The patient canceled the procedure and requested to be transferred to an outside facility for care. The risks and benefits of transfer to an outside facility was discussed with the patient and multiple family members present to include risk of transport, delayed surgical care, and complications related to delay in ORIF including pain , infection, bone necrosis resulting in poor surgical outcomes, and potential . The patient and family were made aware that they would likely incur significant out of pocket expenses related to transportation. The patient to need to insist upon transfer. Accepting orthopedic provider was located at [facility], however, upon learning the cost of the transportation and that her surgery would be delayed until Saturday, the patient changed her mind and requested that Dr. Lopes be contacted and request that he resume her care. Dr. Lopes was agreeable and an OR time for 0800 is reserved. The patient reports that her pain has been well controlled and in fact is only required Dilaudid once overnight. Family members report that she seems more confused than is her baseline and is easily agitated. They request that medications be evaluated to determine if she might benefit from and tolerate an anxiety medication. Physical Exam Vital Signs: Temp Pulse Resp BP Pulse Ox 97.8 F 101 H 20 145/62 H 94 08/07/17 15:55 08/07/17 15:55 08/07/17 15:55 08/07/17 15:55 08/07/17 15:55 Intake & Output 08/06/17 08/07/17 08/08/17 06:59 06:59 06:59 Intake Total 718 2161 Output Total 1300 1430 Balance -582 731 Weight 95.3 kg 43.3 kg General appearance: PRESENT: no acute distress, hard of hearing, thin, well- developed Head exam: PRESENT: atraumatic, normocephalic Eye exam: PRESENT: conjunctiva pink, EOMI, PERRLA. ABSENT: scleral icterus Ear exam: PRESENT: normal external ear exam Mouth exam: PRESENT: moist, tongue midline Neck exam: ABSENT: carotid bruit, JVD, lymphadenopathy, thyromegaly Respiratory exam: PRESENT: clear to auscultation benji, decreased breath sounds - Bibasilar, symmetrical, unlabored. ABSENT: rales, rhonchi, wheezes Cardiovascular exam: PRESENT: RRR. ABSENT: diastolic murmur, rubs, systolic murmur Pulses: PRESENT: normal dorsalis pedis pul Vascular exam: PRESENT: normal capillary refill GI/Abdominal exam: PRESENT: normal bowel sounds, soft. ABSENT: distended, guarding, mass, organolmegaly, rebound, tenderness Rectal exam: PRESENT: deferred Extremities exam: PRESENT: full ROM, tenderness - Left hip. ABSENT: calf tenderness, clubbing, pedal edema Neurological exam: PRESENT: alert, awake, oriented to person, oriented to place , oriented to time, oriented to situation, CN II-XII grossly intact, other - Intermittently, slightly, confused. Reorients quickly. Patient is considered competent for self-determination.. ABSENT: motor sensory deficit Psychiatric exam: PRESENT: appropriate affect, normal mood. ABSENT: homicidal ideation, suicidal ideation Skin exam: PRESENT: dry, intact, warm. ABSENT: cyanosis, rash Results Laboratory Results: 08/07/17 05:35 08/07/17 05:35 08/07/17 08/07/17 05:35 05:35 WBC 15.7 H RBC 4.15 Hgb 12.4 Hct 36.9 MCV 89 MCH 30.0 MCHC 33.7 RDW 14.5 H Plt Count 182 Sodium 138.4 Potassium 4.3 Chloride 103 Carbon Dioxide 24 Anion Gap 11 BUN 37 H Creatinine 0.57 Est GFR ( Amer) > 60 Est GFR (Non-Af Amer) > 60 Glucose 105 Calcium 9.9 08/05/17 19:00 Catheterized Urine Urine Culture - Final NO GROWTH 2 DAYS Impressions: Hip X-Ray 08/05/17 06:07 IMPRESSION: Acute left subcapital femoral neck fracture with varus angulation and foreshortening at the fracture site Chest X-Ray 08/07/17 00:00 IMPRESSION: 1. Chronic lung changes. 2. Large hiatal hernia. 3. Increased dorsal kyphosis and rib fractures. Assessment & Plan - Diagnosis (1) Leukocytosis Qualifiers: Leukocytosis type: unspecified Qualified Code(s): D72.829 - Elevated white blood cell count, unspecified Is this a current diagnosis for this admission?: Yes Plan: Stable and improving (17.1-->15.2-->15.7); may be partially an inflammatory response r/t hip fracture. However, pt reports multiple left rib fractures several weeks ago and development of a productive cough in the setting of COPD. Chest xray completed in the ED could not exclude an upper lobe pneumonia. Urine culture: NGTD Blood culture: NGTD 1- Will empirically cover with Levaquin for CAP (2) Fracture of femoral neck, left Qualifiers: Encounter type: initial encounter Fracture type: closed Qualified Code(s) : S72.002A - Fracture of unspecified part of neck of left femur, initial encounter for closed fracture Is this a current diagnosis for this admission?: Yes Plan: By x-ray, patient has an acute left subcapital femoral neck fracture with displacement. 1-orthopedics consulted; planned repair tomorrow with Dr. Lopes 2-pain controlled with p.o. Tylenol and tramadol (3) Overdose of opiate or related narcotic Qualifiers: Encounter type: subsequent encounter Injury intent: accidental or unintentional Qualified Code(s): T40.601D - Poisoning by unspecified narcotics , accidental (unintentional), subsequent encounter Is this a current diagnosis for this admission?: Yes Plan: Pt was noted to have poor respiratory effort and hypoxemia shortly after arrival from ED and was provided one dose of Narcan with acceptable response. Narcotic pain medications have been discontinued.. (4) COPD (chronic obstructive pulmonary disease) Qualifiers: COPD type: unspecified COPD Qualified Code(s): J44.9 - Chronic obstructive pulmonary disease, unspecified Is this a current diagnosis for this admission?: Yes Plan: Continue home regiment; Advair, Spiriva, chronic Prednisone (5) Acute and chronic respiratory failure Qualifiers: Respiratory failure complication: hypoxia Qualified Code(s): J96.21 - Acute and chronic respiratory failure with hypoxia Is this a current diagnosis for this admission?: Yes Plan: Resolved. Pt initially desaturated down to 75 and required supplemental oxygen ; likely has been related to narcotic pain medications. 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 (6) History of peptic ulcer disease Is this a current diagnosis for this admission?: Yes Plan: Continue Prevacid. (7) Hiatal hernia with GERD Is this a current diagnosis for this admission?: Yes Plan: As above; hopefully pt's symptoms will improve once the hip is repaired and she can be comfortably positioned with HOB elevated. (8) Hypertension Qualifiers: Hypertension type: essential hypertension Qualified Code(s): I10 - Essential (primary) hypertension Is this a current diagnosis for this admission?: Yes Plan: HTN improved today; remains elevated but is now acceptable given pt's age. 1- Continue home regiment; lisinopril (9) Pre-operative anxiety Is this a current diagnosis for this admission?: Yes Plan: Significant perioperative anxiety and agitation in patient with chronic generalized anxiety disorder treated as an outpatient with Paxil. There is likely an underlying component of dementia that is compounding her anxiety and ability to cope with numerous healthcare staff members, change in plan of care, and pain. She has done well on reduced narcotic pain medications and so will discontinue today, hopefully we will see an improvement in mentation with reduction of opiates. 1- Continue home regiment; Paxil 2- Will try low-dose BuSpar twice daily - Time Time Spent with patient: 35 or more minutes Medications reviewed and adjusted accordingly: Yes - Inpatient Certification Based on my medical assessment, after consideration of the patient's comorbidities, presenting symptoms, or acuity I expect that the services needed warrant INPATIENT care.: Yes I certify that my determination is in accordance with my understanding of Medicare's requirements for reasonable and necessary INPATIENT services [42 CFR 412.3e].: Yes Medical Necessity: Need for Surgery
[2017-08-07] MEDS: LEVOFLOXACIN 500 MG TABLET PO SCH (17:50)
[2017-08-07] MEDS: NORMAL SALINE 1000 ML 1,000 ML IV PRN (17:57)
[2017-08-07] MEDS: BUSPIRONE HCL 10 MG TABLET PO SCH (21:58)
[2017-08-08] MEDS: TRAMADOL HCL 50 MG TABLET PO PRN ×2 (01:00→15:43)
[2017-08-08] MEDS: NORMAL SALINE 1000 ML 1,000 ML IV PRN (04:46)
[2017-08-08] MEDS: LANSOPRAZOLE 30 MG TAB.RAP.DR PO SCH (05:02)
[2017-08-08] MEDS: HEPARIN SOD (PORCINE) 5,000 UNIT/ML 1 ML SYRINGE SUBCUT SCH ×3 (05:39→21:37)
[2017-08-08 06:11] LABS: HEMOGLOBIN 12.5 g/dL (12.0-15.5); HGB HCT DIFFERENCE 0.5; MEAN CORPUSCULAR HEMOGLOBIN 30.5 pg (27.0-33.4); MEAN CORPUSCULAR HGB CONC 33.9 g/dL (32.0-36.0); MEAN CORPUSCULAR VOLUME 90 fl (80-97); RED BLOOD COUNT 4.12 10^6/uL (3.72-5.28); RED CELL DISTRIBUTION WIDTH 14.8 % (11.5-14.0); WHITE BLOOD COUNT 10.2 10^3/uL (4.0-10.5)
[2017-08-08 06:40] LABS: ANION GAP 9 (5-19); BLOOD UREA NITROGEN 19 mg/dL (7-20); CALCIUM 9.3 mg/dL (8.4-10.2); CARBON DIOXIDE 27 mmol/L (22-30); CHLORIDE 104 mmol/L (98-107); CREATININE RESULT 0.49 mg/dL (0.52-1.25); GLUCOSE 101 mg/dL (75-110); POTASSIUM 4.2 mmol/L (3.6-5.0); SODIUM 140.4 mmol/L (137-145)
[2017-08-08] MEDS ORDERED: THROMBIN (BOVINE) TOPICAL 20000 UNIT VIAL ONE (06:54)
[2017-08-08] MEDS ORDERED: BUPIVACAINE INJ/PF LIPOSOME/PF 266 MG/20 ML SDV ONE (06:54)
[2017-08-08] MEDS ORDERED: THROMBIN (BOVINE) 5000 UNIT EPITAXIS KIT ONE (06:54)
[2017-08-08] MEDS ORDERED: MIDAZOLAM 2 MG/2 ML INJ ONE (07:53)
[2017-08-08] MEDS ORDERED: EPHEDRINE SULFATE INJ 50 MG/1 ML AMPULE ONE (07:53)
[2017-08-08] MEDS ORDERED: PROPOFOL INJ 200 MG/20 ML VIAL IV ONE (07:54)
[2017-08-08] MEDS ORDERED: IBUPROFEN INJ 800 MG/8 ML VIAL IV ONE (07:54)
[2017-08-08] MEDS ORDERED: HYDROMORPHONE HCL INJ/PF 2 MG/ML AMPULE ONE (07:54)
[2017-08-08] MEDS ORDERED: CEFAZOLIN INJ 1 GM VIAL ONE (08:21)
[2017-08-08] MEDS ORDERED: TRANEXAMIC ACID INJ/PF 1,000 MG/10 ML SDV IV ONE ×3 (08:22→11:03)
[2017-08-08] MEDS ORDERED: DIPHENHYDRAMINE HCL 50 MG/ML VIAL IV PRN ×2 (08:36→08:59)
[2017-08-08] MEDS ORDERED: FENTANYL CITRATE INJ/PF 100 MCG/2 ML AMPUL IV PRN ×2 (08:36)
[2017-08-08] MEDS ORDERED: PROMETHAZINE HCL INJ 25 MG/1 ML VIAL IV PRN (08:36)
--- NOTE | 2017-08-08 08:45 | Operative Report ---
Operative Report DATE OF SURGERY: 08/08/17 PREOPERATIVE DIAGNOSIS: Left femoral neck fracture OPERATION: Left proximal femoral hemiarthroplasty SURGEON: ENRIQUE JOHNSON 1ST DIP LUBE OPERATOR: SONIA REED ANESTHESIA: GA TISSUE REMOVED OR ALTERED: Femoral head to pathology ESTIMATED BLOOD LOSS: 25 PROCEDURE: With the patient in a right lateral decubitus position the left lower extremity hindquarter prepped and draped in a sterile fashion. A curvilinear incision made over the greater trochanter a posterior approach the hip was taken. The femur was retracted anteriorly and underlying femoral neck and head are retrieved using a corkscrew. The femoral head was measured and noted to be 42 millimeters. Attention is now turned to the femur. Access is gained to the femoral canal using a box osteotome to the piriformis fossa. The femur is then prepared using a series of tapered broaches until a number 5 broach is seated. A trial reduction was now performed using a 42 head and -4 neck. Leg length was restored and there is excellent anterior posterior stability. A decision was made to proceed with this construct. All trial implants were removed. The final number 5 femoral stem is impacted into the canal. The -4 neck is impacted onto the trunnion. Final unipolar head 42 millimeters is impacted onto the neck. The hip was reduced. The wound is copiously irrigated with pulsed lavage. A subsequent closed in layers using Vicryl and reshma. A sterile dressing is applied. The patient was returned to the recovery room in satisfactory condition. Implants used: Sanchez Accolade 2 size 5 stem 42 mm unipolar head -4 neck
[2017-08-08] MEDS ORDERED: OXYCODONE HCL IR 5 MG TABLET PO PRN (08:59)
[2017-08-08] MEDS ORDERED: RINGERS SOLUTION,LACTATED 1,000 ML IV PRN (08:59)
[2017-08-08] MEDS ORDERED: ZOLPIDEM TARTRATE 5 MG TABLET PO PRN (08:59)
[2017-08-08] MEDS ORDERED: MORPHINE SULFATE 10 MG/ML INJ IM PRN (08:59)
[2017-08-08] MEDS ORDERED: MORPHINE SULFATE 10 MG/ML INJ IV PRN ×3 (08:59)
[2017-08-08] MEDS ORDERED: ONDANSETRON HCL INJ/PF 4 MG/2 ML SDV IV PRN (08:59)
[2017-08-08] MEDS ORDERED: ACETAMINOPHEN 325 MG TABLET PO PRN (08:59)
[2017-08-08] MEDS ORDERED: SUCCINYLCHOLINE CHLORIDE INJ 200 MG/10 ML VIAL ONE (09:35)
[2017-08-08] MEDS ORDERED: METOCLOPRAMIDE HCL INJ/PF 10 MG/2 ML SDV ONE (09:35)
[2017-08-08] MEDS ORDERED: ONDANSETRON HCL INJ/PF 4 MG/2 ML SDV ONE (09:35)
[2017-08-08] MEDS ORDERED: LIDOCAINE 2% INJ-PF (20 MG/ML) 2 ML AMPUL ONE (09:35)
--- NOTE | 2017-08-08 09:45 | RADIOLOGY REPORT (SQ) ---
EXAM DESCRIPTION: PELVIS AP COMPLETED DATE/TIME: 08/08/2017 9:37 am REASON FOR STUDY: Post Op Long Cassette in PACU COMPARISON: None. NUMBER OF VIEWS: One view TECHNIQUE: AP Pelvis LIMITATIONS: None. FINDINGS: MINERALIZATION: Normal. HIPS: Bipolar prosthesis on the left. Appears anatomically aligned. PELVIS AND SACRUM: No acute fracture or dislocation. No worrisome bone lesions. PUBIS AND ISCHIUM: No acute fracture. LOWER LUMBAR SPINE: Extensive postsurgical changes. SOFT TISSUES: No findings. OTHER: No other significant finding. IMPRESSION: Satisfactory postoperative study bipolar prosthesis. TECHNICAL DOCUMENTATION: JOB ID: [id number] [email or web address]- All Rights Reserved
[2017-08-08] MEDS ORDERED: OXYCODONE HCL SR 10 MG TABLET PO SCH (10:00)
[2017-08-08] MEDS ORDERED: NALOXONE HCL INJ/PF 0.4 MG/1 ML SDV ONE (10:21)
[2017-08-08] MEDS ORDERED: ACETAMINOPHEN 100 ML IV ONE ×2 (11:14→14:59)
[2017-08-08] MEDS: PREDNISONE 5 MG TABLET PO SCH (12:21)
[2017-08-08] MEDS: DOCUSATE SODIUM 100 MG CAPSULE PO SCH ×2 (12:21→17:35)
[2017-08-08] MEDS: LISINOPRIL 10 MG TABLET PO SCH (12:21)
[2017-08-08] MEDS: PREGABALIN 75 MG CAPSULE PO SCH ×2 (12:21→17:36)
[2017-08-08] MEDS: MULTIVITAMIN TABLET PO SCH (12:21)
[2017-08-08] MEDS: PAROXETINE HCL 20 MG TABLET PO SCH (12:21)
[2017-08-08] MEDS: BUSPIRONE HCL 10 MG TABLET PO SCH ×2 (12:21→21:38)
[2017-08-08] MEDS: FLUTICASONE/SALMETEROL DISKUS 250-50 MCG/DOSE IH SCH ×2 (12:21→21:38)
[2017-08-08] MEDS: TIOTROPIUM BROMIDE DPI 5 CAP/KIT (18 MCG/CAP) IH SCH (12:21)
--- NOTE | 2017-08-08 14:19 | PDOC PROGRESS REPORT ---
Subjective Progress Note for:: 08/08/17 Subjective:: Patient is seen resting in bed comfortably with family members present shortly after returning from recovery after repair of her left hip fracture by Dr. Lopes. The patient is sleeping soundly; she rouses slightly to name call but does not wake fully. Patient's family members report that she has been comfortable and pain has been well managed following procedure. They are very appreciative that patient was able to have her hip repair completed today. They have no questions or concerns. Physical Exam Vital Signs: Temp Pulse Resp BP Pulse Ox 98.0 F 98 24 H 139/57 H 98 08/08/17 07:24 08/08/17 07:24 08/08/17 07:24 08/08/17 07:24 08/08/17 13:20 Intake & Output 08/07/17 08/08/17 08/09/17 06:59 06:59 06:59 Intake Total 2161 2370 2450 Output Total 1430 1625 1800 Balance 731 745 650 Weight 43.3 kg 43.5 kg General appearance: PRESENT: no acute distress, thin, well-developed, well- nourished Head exam: PRESENT: atraumatic, normocephalic Eye exam: PRESENT: conjunctiva pink, EOMI, PERRLA. ABSENT: scleral icterus Ear exam: PRESENT: normal external ear exam Mouth exam: PRESENT: moist, tongue midline Neck exam: ABSENT: carotid bruit, JVD, lymphadenopathy, thyromegaly Respiratory exam: PRESENT: clear to auscultation benji. ABSENT: rales, rhonchi, wheezes Cardiovascular exam: PRESENT: RRR. ABSENT: diastolic murmur, rubs, systolic murmur Pulses: PRESENT: normal dorsalis pedis pul Vascular exam: PRESENT: normal capillary refill GI/Abdominal exam: PRESENT: normal bowel sounds, soft. ABSENT: distended, guarding, mass, organolmegaly, rebound, tenderness Rectal exam: PRESENT: deferred Extremities exam: PRESENT: full ROM. ABSENT: calf tenderness, clubbing, pedal edema Neurological exam: PRESENT: other - Sleeping soundly. ABSENT: motor sensory deficit Psychiatric exam: PRESENT: appropriate affect, normal mood. ABSENT: homicidal ideation, suicidal ideation Skin exam: PRESENT: dry, warm. ABSENT: cyanosis, intact - Surgical incision to lateral left hip: Dressing clean dry and intact, rash Results Laboratory Results: 08/08/17 05:48 08/08/17 05:48 08/08/17 08/08/17 05:48 05:48 WBC 10.2 RBC 4.12 Hgb 12.5 Hct 37.0 MCV 90 MCH 30.5 MCHC 33.9 RDW 14.8 H Plt Count 179 Sodium 140.4 Potassium 4.2 Chloride 104 Carbon Dioxide 27 Anion Gap 9 BUN 19 Creatinine 0.49 L Est GFR ( Amer) > 60 Est GFR (Non-Af Amer) > 60 Glucose 101 Calcium 9.3 08/05/17 19:00 Catheterized Urine Urine Culture - Final NO GROWTH 2 DAYS Impressions: Hip X-Ray 08/05/17 06:07 IMPRESSION: Acute left subcapital femoral neck fracture with varus angulation and foreshortening at the fracture site Chest X-Ray 08/07/17 00:00 IMPRESSION: 1. Chronic lung changes. 2. Large hiatal hernia. 3. Increased dorsal kyphosis and rib fractures. Pelvis X-Ray 08/08/17 09:02 IMPRESSION: Satisfactory postoperative study bipolar prosthesis. Assessment & Plan - Diagnosis (1) Fracture of femoral neck, left Qualifiers: Encounter type: initial encounter Fracture type: closed Qualified Code(s) : S72.002A - Fracture of unspecified part of neck of left femur, initial encounter for closed fracture Is this a current diagnosis for this admission?: Yes Plan: Left subcapital femoral neck fracture with displacement now status post ORIF by Dr. Lopes this morning. Pain will be managed with as needed Tylenol and narcotics. Patient will be observed closely for sedation risk and respiratory depression secondary to narcotic pain medications that she has required Narcan for reversal this admission. She did remain on continuous pulse oximetry while receiving narcotic pain medications. PT/OT to evaluate patient; recommend [facility] for short-term rehab on charge. (2) Leukocytosis Qualifiers: Leukocytosis type: unspecified Qualified Code(s): D72.829 - Elevated white blood cell count, unspecified Is this a current diagnosis for this admission?: Yes Plan: Resolved (17.1-->15.2-->15.7-->10.2); may be partially an inflammatory response r/t hip fracture. However, pt reports multiple left rib fractures several weeks ago and development of a productive cough in the setting of COPD. Chest xray completed in the ED could not exclude an upper lobe pneumonia. Urine culture: NGTD Blood culture: NGTD 1- Will empirically cover with Levaquin for CAP, day 3 of treatment. (3) Overdose of opiate or related narcotic Qualifiers: Encounter type: subsequent encounter Injury intent: accidental or unintentional Qualified Code(s): T40.601D - Poisoning by unspecified narcotics , accidental (unintentional), subsequent encounter Is this a current diagnosis for this admission?: Yes Plan: Pt was noted to have poor respiratory effort and hypoxemia shortly after arrival from ED and was provided one dose of Narcan with acceptable response. Patient to receive narcotic pain medications postoperatively; will maintain on continuous pulse oximetry while receiving these medications. (4) COPD (chronic obstructive pulmonary disease) Qualifiers: COPD type: unspecified COPD Qualified Code(s): J44.9 - Chronic obstructive pulmonary disease, unspecified Is this a current diagnosis for this admission?: Yes Plan: Continue home regiment; Advair, Spiriva, chronic Prednisone (5) Acute and chronic respiratory failure Qualifiers: Respiratory failure complication: hypoxia Qualified Code(s): J96.21 - Acute and chronic respiratory failure with hypoxia Is this a current diagnosis for this admission?: Yes Plan: Resolved. Pt initially desaturated down to 75 and required supplemental oxygen ; likely has been related to narcotic pain medications. 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 (6) History of peptic ulcer disease Is this a current diagnosis for this admission?: Yes Plan: Continue Prevacid. (7) Hiatal hernia with GERD Is this a current diagnosis for this admission?: Yes Plan: As above; hopefully pt's symptoms will improve now that the hip is repaired and she can be comfortably positioned with HOB elevated. (8) Hypertension Qualifiers: Hypertension type: essential hypertension Qualified Code(s): I10 - Essential (primary) hypertension Is this a current diagnosis for this admission?: Yes Plan: HTN improved today; remains elevated but is now acceptable given pt's age. 1- Continue home regiment; lisinopril (9) Pre-operative anxiety Is this a current diagnosis for this admission?: Yes Plan: Significant perioperative anxiety and agitation in patient with chronic generalized anxiety disorder treated as an outpatient with Paxil. There is likely an underlying component of dementia that is compounding her anxiety and ability to cope with numerous healthcare staff members, change in plan of care, and pain. 1- Continue home regiment; Paxil 2- Continue low-dose BuSpar twice daily - Time Time Spent with patient: 25-34 minutes Anticipated discharge: Acute Rehab
[2017-08-08] MEDS: IBUPROFEN 800 MG in NORMAL SALINE 250 ML IV SCH ×2 (14:20→23:24)
[2017-08-08] MEDS: LEVOFLOXACIN 500 MG TABLET PO SCH (17:35)
[2017-08-08] MEDS ORDERED: VANCOMYCIN HCL 1,000 MG in DEXTROSE 5%-WATER 250 ML IV ONE (20:59)
[2017-08-08] MEDS: RIVAROXABAN 10 MG TABLET PO SCH (21:37)
[2017-08-09] MEDS: LANSOPRAZOLE 30 MG TAB.RAP.DR PO SCH (06:00)
[2017-08-09] MEDS: IBUPROFEN 800 MG in NORMAL SALINE 250 ML IV SCH ×3 (06:00→21:26)
[2017-08-09] MEDS: HEPARIN SOD (PORCINE) 5,000 UNIT/ML 1 ML SYRINGE SUBCUT SCH ×3 (06:00→21:25)
[2017-08-09] MEDS: TRAMADOL HCL 50 MG TABLET PO PRN ×2 (06:00→18:53)
[2017-08-09 07:02] LABS: HEMATOCRIT 33.1 % (36.0-47.0); HEMOGLOBIN 10.9 g/dL (12.0-15.5); HGB HCT DIFFERENCE -0.4; MEAN CORPUSCULAR HEMOGLOBIN 29.8 pg (27.0-33.4); MEAN CORPUSCULAR HGB CONC 33.1 g/dL (32.0-36.0); MEAN CORPUSCULAR VOLUME 90 fl (80-97); RED BLOOD COUNT 3.68 10^6/uL (3.72-5.28); RED CELL DISTRIBUTION WIDTH 14.5 % (11.5-14.0); WHITE BLOOD COUNT 14.1 10^3/uL (4.0-10.5)
--- NOTE | 2017-08-09 07:05 | PDOC PROGRESS REPORT ---
Subjective Progress Note for:: 08/09/17 Subjective:: Patient complaining of pain but declining any increase in pain medication Physical Exam Vital Signs: Temp Pulse Resp BP Pulse Ox 36.6 C 95 15 138/56 H 97 08/09/17 00:00 08/09/17 02:00 08/09/17 00:00 08/09/17 00:00 08/09/17 04:00 Pulse Oximeter Continuous Start: 08/08/17 14: 14 Freq: RTQ4 Status: Active Document 08/09/17 04:00 STI (Rec: 08/09/17 04:40 STI [id number]) Pulse Oximetry Assessment Oxygen Saturation (92-100) 97 Oxygen Flow Rate (L/min) 3.0 Oxygen Delivery Method Nasal Cannula Fraction of Inspired Oxygen (FIO2) 32 Equipment Usage Equipment in Use Continuous SpO2 Machine # [id number] Intake & Output 08/08/17 08/09/17 08/10/17 06:59 06:59 06:59 Intake Total 2370 4170 Output Total 1625 1800 Balance 745 2370 Weight 43.5 kg General appearance: PRESENT: mild distress Head exam: PRESENT: normocephalic Respiratory exam: PRESENT: unlabored Cardiovascular exam: PRESENT: RRR Pulses: PRESENT: +1 pedal pulses bilateral Vascular exam: PRESENT: normal capillary refill GI/Abdominal exam: PRESENT: soft Rectal exam: PRESENT: deferred Extremities exam: PRESENT: other - Left hip incision is clean dry and intact Neurological exam: PRESENT: alert, awake, oriented to person, oriented to place , oriented to time, oriented to situation. ABSENT: motor sensory deficit Psychiatric exam: PRESENT: appropriate affect, normal mood. ABSENT: homicidal ideation, suicidal ideation Skin exam: PRESENT: dry, intact, warm. ABSENT: cyanosis, rash Results Impressions: Hip X-Ray 08/05/17 06:07 IMPRESSION: Acute left subcapital femoral neck fracture with varus angulation and foreshortening at the fracture site Chest X-Ray 08/07/17 00:00 IMPRESSION: 1. Chronic lung changes. 2. Large hiatal hernia. 3. Increased dorsal kyphosis and rib fractures. Pelvis X-Ray 08/08/17 09:02 IMPRESSION: Satisfactory postoperative study bipolar prosthesis. Status: Imported from PACS Assessment & Plan - Diagnosis (1) Fracture of femoral neck, left Qualifiers: Encounter type: initial encounter Fracture type: closed Qualified Code(s) : S72.002A - Fracture of unspecified part of neck of left femur, initial encounter for closed fracture Is this a current diagnosis for this admission?: Yes Plan: 87-year-old white female postop day 1 from a left proximal femoral hemiarthroplasty. Uneventful postoperative course. Patient has not yet started physical therapy but will be seen today for weightbearing as tolerated ambulation. - Time Time Spent with patient: 15-24 minutes Anticipated discharge: SNF Within: when bed available
[2017-08-09 07:17] LABS: ANION GAP 7 (5-19); BLOOD UREA NITROGEN 18 mg/dL (7-20); CALCIUM 8.4 mg/dL (8.4-10.2); CARBON DIOXIDE 25 mmol/L (22-30); CHLORIDE 107 mmol/L (98-107); CREATININE RESULT 0.49 mg/dL (0.52-1.25); GLUCOSE 94 mg/dL (75-110); POTASSIUM 3.6 mmol/L (3.6-5.0); SODIUM 138.8 mmol/L (137-145)
[2017-08-09] MEDS: BUSPIRONE HCL 10 MG TABLET PO SCH ×2 (09:28→21:26)
[2017-08-09] MEDS: MULTIVITAMIN TABLET PO SCH (09:28)
[2017-08-09] MEDS: FLUTICASONE/SALMETEROL DISKUS 250-50 MCG/DOSE IH SCH ×2 (09:28→21:26)
[2017-08-09] MEDS: LISINOPRIL 10 MG TABLET PO SCH (09:28)
[2017-08-09] MEDS: DOCUSATE SODIUM 100 MG CAPSULE PO SCH ×2 (09:28→17:42)
[2017-08-09] MEDS: TIOTROPIUM BROMIDE DPI 5 CAP/KIT (18 MCG/CAP) IH SCH (09:29)
[2017-08-09] MEDS: PREDNISONE 5 MG TABLET PO SCH (09:29)
[2017-08-09] MEDS: PAROXETINE HCL 20 MG TABLET PO SCH (09:29)
[2017-08-09] MEDS: PREGABALIN 75 MG CAPSULE PO SCH ×2 (09:29→17:41)
[2017-08-09] MEDS: MAG HYDROX/AL HYDROX/SIMETH SUSP 30 ML UDCUP PO PRN (11:27)
--- NOTE | 2017-08-09 12:26 | PDOC PROGRESS REPORT ---
Subjective Progress Note for:: 08/09/17 Subjective:: Patient is seen resting in bed comfortably with family members present. She is postop day 1 status post left proximal femoral hemiarthroplasty with Dr. Lopes. Patient reports that she is comfortable, stating that her pain is well controlled. She and her daughter have a couple of questions with regard to discharge plan, but otherwise have no concerns. Physical Exam Vital Signs: Temp Pulse Resp BP Pulse Ox 97.9 F 91 16 115/58 L 97 08/09/17 08:03 08/09/17 08:03 08/09/17 08:03 08/09/17 08:03 08/09/17 08:03 Pulse Oximeter Continuous Start: 08/08/17 14: 14 Freq: RTQ4 Status: Active Document 08/09/17 04:00 STI (Rec: 08/09/17 04:40 STI [id number]) Pulse Oximetry Assessment Oxygen Saturation (92-100) 97 Oxygen Flow Rate (L/min) 3.0 Oxygen Delivery Method Nasal Cannula Fraction of Inspired Oxygen (FIO2) 32 Equipment Usage Equipment in Use Continuous SpO2 Machine # [id number] Intake & Output 08/08/17 08/09/17 08/10/17 06:59 06:59 06:59 Intake Total 2370 4290 Output Total 1625 1900 Balance 745 2390 Weight 43.5 kg 43.4 kg General appearance: PRESENT: no acute distress, well-developed, well-nourished, other - Thin Head exam: PRESENT: atraumatic, normocephalic Eye exam: PRESENT: conjunctiva pink, EOMI, PERRLA. ABSENT: scleral icterus Ear exam: PRESENT: normal external ear exam Mouth exam: PRESENT: moist, tongue midline Neck exam: ABSENT: carotid bruit, JVD, lymphadenopathy, thyromegaly Respiratory exam: PRESENT: clear to auscultation benji. ABSENT: rales, rhonchi, wheezes Cardiovascular exam: PRESENT: RRR. ABSENT: diastolic murmur, rubs, systolic murmur Pulses: PRESENT: normal dorsalis pedis pul Vascular exam: PRESENT: normal capillary refill GI/Abdominal exam: PRESENT: normal bowel sounds, soft. ABSENT: distended, guarding, mass, organolmegaly, rebound, tenderness Rectal exam: PRESENT: deferred Extremities exam: PRESENT: full ROM. ABSENT: calf tenderness, clubbing, pedal edema Musculoskeletal exam: ABSENT: full ROM - Left hip, tenderness - Left hip Neurological exam: PRESENT: alert, awake, oriented to person, oriented to place , oriented to time, oriented to situation, CN II-XII grossly intact. ABSENT: motor sensory deficit Psychiatric exam: PRESENT: appropriate affect, normal mood. ABSENT: homicidal ideation, suicidal ideation Skin exam: PRESENT: dry, intact - Clean dry dressing to left lateral hip surgical incision., warm. ABSENT: cyanosis, rash Results Laboratory Results: 08/09/17 06:39 08/09/17 06:39 08/09/17 08/09/17 06:39 06:39 WBC 14.1 H RBC 3.68 L Hgb 10.9 L Hct 33.1 L MCV 90 MCH 29.8 MCHC 33.1 RDW 14.5 H Plt Count 168 Sodium 138.8 Potassium 3.6 Chloride 107 Carbon Dioxide 25 Anion Gap 7 BUN 18 Creatinine 0.49 L Est GFR ( Amer) > 60 Est GFR (Non-Af Amer) > 60 Glucose 94 Calcium 8.4 Impressions: Hip X-Ray 08/05/17 06:07 IMPRESSION: Acute left subcapital femoral neck fracture with varus angulation and foreshortening at the fracture site Chest X-Ray 08/07/17 00:00 IMPRESSION: 1. Chronic lung changes. 2. Large hiatal hernia. 3. Increased dorsal kyphosis and rib fractures. Pelvis X-Ray 08/08/17 09:02 IMPRESSION: Satisfactory postoperative study bipolar prosthesis. Assessment & Plan - Diagnosis (1) Fracture of femoral neck, left Qualifiers: Encounter type: initial encounter Fracture type: closed Qualified Code(s) : S72.002A - Fracture of unspecified part of neck of left femur, initial encounter for closed fracture Is this a current diagnosis for this admission?: Yes Plan: Left subcapital femoral neck fracture with displacement now postop day 1 left femur hemiarthroplasty by Dr. Lopes. Pain will be managed with as needed Tylenol and narcotics. Patient will be observed closely for sedation risk and respiratory depression secondary to narcotic pain medications as she has required Narcan for reversal this admission. She will remain on continuous pulse oximetry while receiving narcotic pain medications. PT/OT to evaluate patient; recommend long-term for short-term rehab on charge. (2) Leukocytosis Qualifiers: Leukocytosis type: unspecified Qualified Code(s): D72.829 - Elevated white blood cell count, unspecified Is this a current diagnosis for this admission?: Yes Plan: Somewhat increased today following surgical procedure. Likely this is an inflammatory response r/t hip fracture and repair. However, pt reports multiple left rib fractures several weeks ago and development of a productive cough in the setting of COPD. Her cough has resolved since admission. Chest xray completed in the ED could not exclude an upper lobe pneumonia. Urine culture: NGTD Blood culture: NGTD 1- Will empirically cover with Levaquin for CAP, day 4 of treatment. (3) Overdose of opiate or related narcotic Qualifiers: Encounter type: subsequent encounter Injury intent: accidental or unintentional Qualified Code(s): T40.601D - Poisoning by unspecified narcotics , accidental (unintentional), subsequent encounter Is this a current diagnosis for this admission?: Yes Plan: Pt was noted to have poor respiratory effort and hypoxemia shortly after arrival from ED and was provided one dose of Narcan with acceptable response. Patient to receive narcotic pain medications postoperatively; will maintain on continuous pulse oximetry while receiving these medications. (4) COPD (chronic obstructive pulmonary disease) Qualifiers: COPD type: unspecified COPD Qualified Code(s): J44.9 - Chronic obstructive pulmonary disease, unspecified Is this a current diagnosis for this admission?: Yes Plan: Continue home regiment; Advair, Spiriva, chronic Prednisone (5) Acute and chronic respiratory failure Qualifiers: Respiratory failure complication: hypoxia Qualified Code(s): J96.21 - Acute and chronic respiratory failure with hypoxia Is this a current diagnosis for this admission?: Yes Plan: Resolved. Pt initially desaturated down to 75 and required supplemental oxygen ; likely has been related to narcotic pain medications. 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 (6) History of peptic ulcer disease Is this a current diagnosis for this admission?: Yes Plan: Continue Prevacid. (7) Hiatal hernia with GERD Is this a current diagnosis for this admission?: Yes Plan: As above; hopefully pt's symptoms will improve now that the hip is repaired and she can be comfortably positioned with HOB elevated. (8) Hypertension Qualifiers: Hypertension type: essential hypertension Qualified Code(s): I10 - Essential (primary) hypertension Is this a current diagnosis for this admission?: Yes Plan: HTN improved today; remains elevated but is now acceptable given pt's age. 1- Continue home regiment; lisinopril (9) Pre-operative anxiety Is this a current diagnosis for this admission?: Yes Plan: Significant perioperative anxiety and agitation in patient with chronic generalized anxiety disorder treated as an outpatient with Paxil. There is likely an underlying component of dementia that is compounding her anxiety and ability to cope with numerous healthcare staff members, change in plan of care, and pain. 1- Continue home regiment; Paxil 2- Continue low-dose BuSpar twice daily - Time Time Spent with patient: 15-24 minutes Medications reviewed and adjusted accordingly: Yes Anticipated discharge: Acute Rehab
[2017-08-09] MEDS: LEVOFLOXACIN 500 MG TABLET PO SCH (17:42)
[2017-08-09] MEDS: RIVAROXABAN 10 MG TABLET PO SCH (21:26)
[2017-08-10] MEDS: HEPARIN SOD (PORCINE) 5,000 UNIT/ML 1 ML SYRINGE SUBCUT SCH ×3 (05:33→21:40)
[2017-08-10] MEDS: LANSOPRAZOLE 30 MG TAB.RAP.DR PO SCH (06:10)
[2017-08-10] MEDS: IBUPROFEN 800 MG in NORMAL SALINE 250 ML IV SCH (06:10)
--- NOTE | 2017-08-10 06:51 | PDOC PROGRESS REPORT ---
Subjective Progress Note for:: 08/10/17 Subjective:: Patient in much better spirits this morning Physical Exam Vital Signs: Temp Pulse Resp BP Pulse Ox 36.4 C 108 H 20 131/68 H 96 08/10/17 00:56 08/10/17 02:00 08/10/17 00:56 08/10/17 00:56 08/10/17 00:56 Pulse Oximeter Continuous Start: 08/08/17 14: 14 Freq: RTQ4 Status: Active Document 08/10/17 00:00 STI (Rec: 08/10/17 01:04 STI [id number]) Pulse Oximetry Assessment Oxygen Saturation (92-100) 100 Oxygen Flow Rate (L/min) 4.0 Oxygen Delivery Method Nasal Cannula Fraction of Inspired Oxygen (FIO2) 36 Equipment Usage Equipment in Use Continuous Pulse Oximeter 24 Hour Charge Charge Now Continuous SpO2 Machine # [id number] Intake & Output 08/08/17 08/09/17 08/10/17 06:59 06:59 06:59 Intake Total 2370 4290 1360 Output Total 1625 1900 200 Balance 745 2390 1160 Weight 43.5 kg 43.4 kg General appearance: PRESENT: no acute distress Head exam: PRESENT: normocephalic Respiratory exam: PRESENT: unlabored Cardiovascular exam: PRESENT: RRR Pulses: PRESENT: +1 pedal pulses bilateral Vascular exam: PRESENT: normal capillary refill GI/Abdominal exam: PRESENT: soft Rectal exam: PRESENT: deferred Extremities exam: PRESENT: other - Left hip dressing clean dry and intact Neurological exam: PRESENT: alert, awake, oriented to person, oriented to place , oriented to time, oriented to situation. ABSENT: motor sensory deficit Psychiatric exam: PRESENT: appropriate affect, normal mood. ABSENT: homicidal ideation, suicidal ideation Skin exam: PRESENT: dry, intact, warm. ABSENT: cyanosis, rash Results Laboratory Results: 08/09/17 06:39 08/09/17 08/09/17 06:39 06:39 WBC 14.1 H RBC 3.68 L Hgb 10.9 L Hct 33.1 L MCV 90 MCH 29.8 MCHC 33.1 RDW 14.5 H Plt Count 168 Sodium 138.8 Potassium 3.6 Chloride 107 Carbon Dioxide 25 Anion Gap 7 BUN 18 Creatinine 0.49 L Est GFR ( Amer) > 60 Est GFR (Non-Af Amer) > 60 Glucose 94 Calcium 8.4 Impressions: Hip X-Ray 08/05/17 06:07 IMPRESSION: Acute left subcapital femoral neck fracture with varus angulation and foreshortening at the fracture site Chest X-Ray 08/07/17 00:00 IMPRESSION: 1. Chronic lung changes. 2. Large hiatal hernia. 3. Increased dorsal kyphosis and rib fractures. Pelvis X-Ray 08/08/17 09:02 IMPRESSION: Satisfactory postoperative study bipolar prosthesis. Status: Imported from PACS Assessment & Plan - Diagnosis (1) Fracture of femoral neck, left Qualifiers: Encounter type: initial encounter Fracture type: closed Qualified Code(s) : S72.002A - Fracture of unspecified part of neck of left femur, initial encounter for closed fracture Is this a current diagnosis for this admission?: Yes Plan: 87-year-old white female postop day 2 from left proximal femoral hemiarthroplasty for femoral neck fracture. Overall patient is to be doing relatively well. Limited progress with physical therapy probably at least in part due to preoperative deconditioning and recent rib fractures. Plan for ongoing physical therapy and questionable skin assisted facility placement next week - Time Time Spent with patient: 15-24 minutes Anticipated discharge: SNF Within: Other
[2017-08-10 06:54] LABS: HEMATOCRIT 33.1 % (36.0-47.0); HEMOGLOBIN 11.2 g/dL (12.0-15.5); HGB HCT DIFFERENCE 0.5; MEAN CORPUSCULAR HEMOGLOBIN 30.3 pg (27.0-33.4); MEAN CORPUSCULAR HGB CONC 33.9 g/dL (32.0-36.0); MEAN CORPUSCULAR VOLUME 90 fl (80-97); RED BLOOD COUNT 3.69 10^6/uL (3.72-5.28); RED CELL DISTRIBUTION WIDTH 14.6 % (11.5-14.0); WHITE BLOOD COUNT 13.3 10^3/uL (4.0-10.5)
[2017-08-10] MEDS: MAG HYDROX/AL HYDROX/SIMETH SUSP 30 ML UDCUP PO PRN (10:18)
[2017-08-10] MEDS: DOCUSATE SODIUM 100 MG CAPSULE PO SCH ×2 (11:17→17:45)
[2017-08-10] MEDS: BUSPIRONE HCL 10 MG TABLET PO SCH ×2 (11:17→21:49)
[2017-08-10] MEDS: FLUTICASONE/SALMETEROL DISKUS 250-50 MCG/DOSE IH SCH ×2 (11:18→21:49)
[2017-08-10] MEDS: MULTIVITAMIN TABLET PO SCH (11:19)
[2017-08-10] MEDS: PAROXETINE HCL 20 MG TABLET PO SCH (11:19)
[2017-08-10] MEDS: LISINOPRIL 10 MG TABLET PO SCH (11:19)
[2017-08-10] MEDS: PREGABALIN 75 MG CAPSULE PO SCH ×2 (11:20→17:45)
[2017-08-10] MEDS: TIOTROPIUM BROMIDE DPI 5 CAP/KIT (18 MCG/CAP) IH SCH (11:20)
[2017-08-10] MEDS: PREDNISONE 5 MG TABLET PO SCH (11:20)
--- NOTE | 2017-08-10 14:47 | PDOC PROGRESS REPORT ---
Subjective Progress Note for:: 08/10/17 Subjective:: Patient is seen resting in bed comfortably with family members present. She is postop day 2 status post left proximal femoral hemiarthroplasty with Dr. Lopes. Patient reports that she is comfortable, stating that her pain is well controlled. Her only complaint that she is tired because she did not sleep well overnight. She is me that she is not interested in a short-term rehab stay and wishes to be discharged directly home with home health services once cleared by orthopedic surgeon. Otherwise she has no questions or concerns today. Physical Exam Vital Signs: Temp Pulse Resp BP Pulse Ox 97.3 F 111 H 20 147/81 H 92 08/10/17 11:24 08/10/17 14:00 08/10/17 11:24 08/10/17 11:24 08/10/17 11:30 Pulse Oximeter Continuous Start: 08/08/17 14: 14 Freq: RTQ4 Status: Active Document 08/10/17 11:30 [facility] (Rec: 08/10/17 11:30 DS [email or web address]) Pulse Oximetry Assessment Oxygen Saturation (92-100) 92 Oxygen Flow Rate (L/min) 3 Oxygen Delivery Method Nasal Cannula Equipment Usage Equipment in Use Continuous SpO2 Machine # 13 Intake & Output 08/09/17 08/10/17 08/11/17 06:59 06:59 06:59 Intake Total 4290 2100 Output Total 1900 550 Balance 2390 1550 Weight 43.4 kg General appearance: PRESENT: no acute distress, thin, well-developed, well- nourished Head exam: PRESENT: atraumatic, normocephalic Eye exam: PRESENT: conjunctiva pink, EOMI, PERRLA. ABSENT: scleral icterus Ear exam: PRESENT: normal external ear exam Mouth exam: PRESENT: moist, tongue midline Neck exam: ABSENT: carotid bruit, JVD, lymphadenopathy, thyromegaly Respiratory exam: PRESENT: clear to auscultation benji, symmetrical, unlabored. ABSENT: rales, rhonchi, wheezes Cardiovascular exam: PRESENT: RRR. ABSENT: diastolic murmur, rubs, systolic murmur Pulses: PRESENT: normal dorsalis pedis pul Vascular exam: PRESENT: normal capillary refill GI/Abdominal exam: PRESENT: normal bowel sounds, soft. ABSENT: distended, guarding, mass, organolmegaly, rebound, tenderness Rectal exam: PRESENT: deferred Extremities exam: PRESENT: full ROM - Limited range of motion to the left hip secondary to pain, tenderness. ABSENT: calf tenderness, clubbing, pedal edema Neurological exam: PRESENT: alert, awake, oriented to person, oriented to place , oriented to time, oriented to situation, CN II-XII grossly intact. ABSENT: motor sensory deficit Psychiatric exam: PRESENT: appropriate affect, normal mood. ABSENT: homicidal ideation, suicidal ideation Skin exam: PRESENT: dry, intact - Clean, dry, dressing to the left hip surgical incision. Surgical inscion not directly visualized., warm. ABSENT: cyanosis, rash Results Laboratory Results: 08/10/17 06:25 08/09/17 06:39 08/10/17 06:25 WBC 13.3 H RBC 3.69 L Hgb 11.2 L Hct 33.1 L MCV 90 MCH 30.3 MCHC 33.9 RDW 14.6 H Plt Count 190 Impressions: Hip X-Ray 08/05/17 06:07 IMPRESSION: Acute left subcapital femoral neck fracture with varus angulation and foreshortening at the fracture site Chest X-Ray 08/07/17 00:00 IMPRESSION: 1. Chronic lung changes. 2. Large hiatal hernia. 3. Increased dorsal kyphosis and rib fractures. Pelvis X-Ray 08/08/17 09:02 IMPRESSION: Satisfactory postoperative study bipolar prosthesis. Assessment & Plan - Diagnosis (1) Fracture of femoral neck, left Qualifiers: Encounter type: initial encounter Fracture type: closed Qualified Code(s) : S72.002A - Fracture of unspecified part of neck of left femur, initial encounter for closed fracture Is this a current diagnosis for this admission?: Yes Plan: Left subcapital femoral neck fracture with displacement now postop day 2 left femur hemiarthroplasty by Dr. Lopes. Pain will be managed with as needed Tylenol and narcotics. Patient will be observed closely for sedation risk and respiratory depression secondary to narcotic pain medications as she has required Narcan for reversal this admission. She will remain on continuous pulse oximetry while receiving narcotic pain medications. PT/OT to evaluate patient; recommend [facility] for short-[facility]hab on charge. Patient is stable for discharge once cleared by orthopedics. (2) Leukocytosis Qualifiers: Leukocytosis type: unspecified Qualified Code(s): D72.829 - Elevated white blood cell count, unspecified Is this a current diagnosis for this admission?: Yes Plan: Trending down. Likely this is an inflammatory response r/t hip fracture and repair. However, pt reports multiple left rib fractures several weeks ago and development of a productive cough in the setting of COPD. Her cough has resolved since admission. Chest xray completed in the ED could not exclude an upper lobe pneumonia. Urine culture: NGTD Blood culture: NGTD 1- Will empirically cover with Levaquin for CAP, day 5 of treatment. (3) Overdose of opiate or related narcotic Qualifiers: Encounter type: subsequent encounter Injury intent: accidental or unintentional Qualified Code(s): T40.601D - Poisoning by unspecified narcotics , accidental (unintentional), subsequent encounter Is this a current diagnosis for this admission?: Yes Plan: Pt was noted to have poor respiratory effort and hypoxemia shortly after arrival from ED and was provided one dose of Narcan with acceptable response. Patient to receive narcotic pain medications postoperatively; will maintain on continuous pulse oximetry while receiving these medications. (4) COPD (chronic obstructive pulmonary disease) Qualifiers: COPD type: unspecified COPD Qualified Code(s): J44.9 - Chronic obstructive pulmonary disease, unspecified Is this a current diagnosis for this admission?: Yes Plan: Continue home regiment; Advair, Spiriva, chronic Prednisone (5) Acute and chronic respiratory failure Qualifiers: Respiratory failure complication: hypoxia Qualified Code(s): J96.21 - Acute and chronic respiratory failure with hypoxia Is this a current diagnosis for this admission?: Yes Plan: Resolved. Pt initially desaturated down to 75 and required supplemental oxygen ; likely has been related to narcotic pain medications. 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 (6) History of peptic ulcer disease Is this a current diagnosis for this admission?: Yes Plan: Continue Prevacid. (7) Hiatal hernia with GERD Is this a current diagnosis for this admission?: Yes Plan: As above; hopefully pt's symptoms will improve now that the hip is repaired and she can be comfortably positioned with HOB elevated. (8) Hypertension Qualifiers: Hypertension type: essential hypertension Qualified Code(s): I10 - Essential (primary) hypertension Is this a current diagnosis for this admission?: Yes Plan: Remains elevated but is now acceptable given pt's age. 1- Continue home regiment; lisinopril (9) Pre-operative anxiety Is this a current diagnosis for this admission?: Yes Plan: Significant perioperative anxiety and agitation in patient with chronic generalized anxiety disorder treated as an outpatient with Paxil. There is likely an underlying component of dementia that is compounding her anxiety and ability to cope with numerous healthcare staff members, change in plan of care, and pain. 1- Continue home regiment; Paxil 2- Continue low-dose BuSpar twice daily - Time Time Spent with patient: 15-24 minutes Medications reviewed and adjusted accordingly: Yes Anticipated discharge: SNF Within: Other - Once cleared by orthopedics. - Inpatient Certification Based on my medical assessment, after consideration of the patient's comorbidities, presenting symptoms, or acuity I expect that the services needed warrant INPATIENT care.: Yes I certify that my determination is in accordance with my understanding of Medicare's requirements for reasonable and necessary INPATIENT services [42 CFR 412.3e].: Yes Medical Necessity: Need for Surgery
[2017-08-10] MEDS: LEVOFLOXACIN 500 MG TABLET PO SCH (17:45)
[2017-08-10] MEDS: PANTOPRAZOLE SODIUM 40 MG VIAL IV SCH (17:59)
[2017-08-10] MEDS ORDERED: POLYETHYLENE GLYCOL 3350 POWDER 17 GM/1 PACKET PO ONE (18:00)
[2017-08-10] MEDS: TRAMADOL HCL 50 MG TABLET PO PRN (20:06)
[2017-08-10] MEDS: RIVAROXABAN 10 MG TABLET PO SCH (21:42)
[2017-08-11] MEDS: HEPARIN SOD (PORCINE) 5,000 UNIT/ML 1 ML SYRINGE SUBCUT SCH ×3 (05:15→21:37)
[2017-08-11] MEDS: LANSOPRAZOLE 30 MG TAB.RAP.DR PO SCH (05:18)
[2017-08-11 07:11] LABS: HEMATOCRIT 33.6 % (36.0-47.0); HEMOGLOBIN 11.2 g/dL (12.0-15.5); MEAN CORPUSCULAR HGB CONC 33.3 g/dL (32.0-36.0); MEAN CORPUSCULAR VOLUME 90 fl (80-97); RED BLOOD COUNT 3.73 10^6/uL (3.72-5.28); RED CELL DISTRIBUTION WIDTH 14.8 % (11.5-14.0); WHITE BLOOD COUNT 13.1 10^3/uL (4.0-10.5)
[2017-08-11] MEDS ORDERED: IPRATROPIUM/ALBUTEROL 0.5-2.5 MG/3 ML AMPUL NEB PRN (08:34)
[2017-08-11] MEDS: FLUTICASONE/SALMETEROL DISKUS 250-50 MCG/DOSE IH SCH ×2 (10:25→21:34)
[2017-08-11] MEDS: DOCUSATE SODIUM 100 MG CAPSULE PO SCH ×2 (10:25→17:41)
[2017-08-11] MEDS: MULTIVITAMIN TABLET PO SCH (10:25)
[2017-08-11] MEDS: LISINOPRIL 10 MG TABLET PO SCH (10:25)
[2017-08-11] MEDS: GUAIFENESIN 600 MG TABLET.SA PO SCH ×2 (10:25→21:34)
[2017-08-11] MEDS: BUSPIRONE HCL 10 MG TABLET PO SCH ×2 (10:25→21:34)
[2017-08-11] MEDS: PAROXETINE HCL 20 MG TABLET PO SCH (10:26)
[2017-08-11] MEDS: PREGABALIN 75 MG CAPSULE PO SCH ×2 (10:26→17:41)
[2017-08-11] MEDS: TIOTROPIUM BROMIDE DPI 5 CAP/KIT (18 MCG/CAP) IH SCH (10:26)
[2017-08-11] MEDS: PANTOPRAZOLE SODIUM 40 MG VIAL IV SCH ×2 (10:26→17:41)
[2017-08-11] MEDS: POLYETHYLENE GLYCOL 3350 POWDER 17 GM/1 PACKET PO SCH (10:26)
[2017-08-11] MEDS: PREDNISONE 20 MG TABLET PO SCH (10:26)
--- NOTE | 2017-08-11 10:48 | RADIOLOGY REPORT (SQ) ---
EXAM DESCRIPTION: CHEST SINGLE VIEW COMPLETED DATE/TIME: 08/11/2017 10:09 am REASON FOR STUDY: cough, rhonchi COMPARISON: Chest films 08/08/2011, 08/05/2017, 08/07/2017 EXAM PARAMETERS: NUMBER OF VIEWS: One view. TECHNIQUE: Single frontal radiographic view of the chest acquired. RADIATION DOSE: NA LIMITATIONS: None. FINDINGS: LUNGS AND PLEURA: Diffuse pulmonary vascular prominence. No dense consolidation worrisome for pneumonia. Question trace bilateral pleural effusions. No pneumothorax MEDIASTINUM AND HILAR STRUCTURES: Intrathoracic stomach containing an air-fluid level HEART AND VASCULAR STRUCTURES: Moderate cardiomegaly BONES: Multiple old left posterior rib fractures HARDWARE: Lumbar fusion hardware. OTHER: No other significant finding. IMPRESSION: Intrathoracic stomach dilated with air-fluid level. Gastric volvulus could not be exclu ded. Gastric outlet obstruction could not be excluded Pulmonary vascular congestion with trace bilateral pleural effusions. Suspect mild fluid overload or congestive failure TECHNICAL DOCUMENTATION: JOB ID: [id number] [employer]- All Rights Reserved
[2017-08-11] MEDS ORDERED: FUROSEMIDE 20 MG TABLET PO ONE (12:15)
--- NOTE | 2017-08-11 12:49 | PDOC PROGRESS REPORT ---
Subjective Progress Note for:: 08/11/17 Subjective:: Patient is seen resting in bed comfortably with family members present. She is postop day 3 status post left proximal femoral hemiarthroplasty with Dr. Lopes. Patient reports that she is comfortable, stating that her pain is well controlled. She reports that she becomes lightheaded when standing and that this is limited her ability to work with physical therapy. She also complains of increased fatigue and productive cough from her baseline. She is admittedly not sleeping well related to being in the hospital environment. She denies fever, chills, headache, chest pain, dyspnea and orthopnea. Today, she tells me that she is willing to go to short-term rehab on discharge. Otherwise she has no questions or concerns today. Physical Exam Vital Signs: Temp Pulse Resp BP Pulse Ox 97.9 F 131 H 16 149/78 H 93 08/11/17 07:44 08/11/17 12:28 08/11/17 12:28 08/11/17 07:44 08/11/17 12:28 Pulse Oximeter Continuous Start: 08/08/17 14: 14 Freq: RTQ4 Status: Active Document 08/11/17 12:00 [facility] (Rec: 08/11/17 12:37 [facility] [email or web address]) Pulse Oximetry Assessment Oxygen Saturation (92-100) 93 Oxygen Flow Rate (L/min) 4.5 Oxygen Delivery Method Nasal Cannula Equipment Usage Equipment in Use Continuous SpO2 Machine # 13 Intake & Output 08/10/17 08/11/17 08/12/17 06:59 06:59 06:59 Intake Total 2100 940 Output Total 550 820 Balance 1550 120 Weight 43.6 kg General appearance: PRESENT: no acute distress, well-developed, well-nourished Head exam: PRESENT: atraumatic, normocephalic Eye exam: PRESENT: conjunctiva pink, EOMI, PERRLA. ABSENT: scleral icterus Ear exam: PRESENT: normal external ear exam Mouth exam: PRESENT: moist, tongue midline Neck exam: ABSENT: carotid bruit, JVD, lymphadenopathy, thyromegaly Respiratory exam: PRESENT: clear to auscultation benji, crackles, rhonchi, symmetrical, unlabored. ABSENT: rales, wheezes Cardiovascular exam: PRESENT: RRR. ABSENT: diastolic murmur, rubs, systolic murmur Pulses: PRESENT: normal dorsalis pedis pul Vascular exam: PRESENT: normal capillary refill GI/Abdominal exam: PRESENT: normal bowel sounds, soft. ABSENT: distended, guarding, mass, organolmegaly, rebound, tenderness Rectal exam: PRESENT: deferred Extremities exam: PRESENT: tenderness - Left hip. ABSENT: calf tenderness, clubbing, full ROM - Left hip, pedal edema Musculoskeletal exam: PRESENT: normal inspection Neurological exam: PRESENT: alert, awake, oriented to person, oriented to place , oriented to time, oriented to situation, CN II-XII grossly intact. ABSENT: motor sensory deficit Psychiatric exam: PRESENT: appropriate affect, normal mood. ABSENT: homicidal ideation, suicidal ideation Skin exam: PRESENT: dry, intact, warm. ABSENT: cyanosis, rash Results Laboratory Results: 08/11/17 06:52 08/09/17 06:39 08/11/17 06:52 WBC 13.1 H RBC 3.73 Hgb 11.2 L Hct 33.6 L MCV 90 MCH 30.0 MCHC 33.3 RDW 14.8 H Plt Count 220 08/05/17 19:15 Blood Blood Culture - Final NO GROWTH IN 5 DAYS 08/05/17 18:00 Blood Blood Culture - Final NO GROWTH IN 5 DAYS Impressions: Hip X-Ray 08/05/17 06:07 IMPRESSION: Acute left subcapital femoral neck fracture with varus angulation and foreshortening at the fracture site Pelvis X-Ray 08/08/17 09:02 IMPRESSION: Satisfactory postoperative study bipolar prosthesis. Chest X-Ray 08/11/17 00:00 IMPRESSION: Intrathoracic stomach dilated with air-fluid level. Gastric volvulus could not be excluded. Gastric outlet obstruction could not be excluded Pulmonary vascular congestion with trace bilateral pleural effusions. Suspect mild fluid overload or congestive failure Assessment & Plan - Diagnosis (1) Fracture of femoral neck, left Qualifiers: Encounter type: initial encounter Fracture type: closed Qualified Code(s) : S72.002A - Fracture of unspecified part of neck of left femur, initial encounter for closed fracture Is this a current diagnosis for this admission?: Yes Plan: Left subcapital femoral neck fracture with displacement now postop day 3 left femur hemiarthroplasty by Dr. Lopes. Pain will be managed with as needed Tylenol and narcotics. Patient will be observed closely for sedation risk and respiratory depression secondary to narcotic pain medications as she has required Narcan for reversal this admission. She will remain on continuous pulse oximetry while receiving narcotic pain medications. PT/OT to evaluate patient; recommend intermediate for short-term rehab on charge. Patient is stable for discharge once cleared by orthopedics. (2) Leukocytosis Qualifiers: Leukocytosis type: unspecified Qualified Code(s): D72.829 - Elevated white blood cell count, unspecified Is this a current diagnosis for this admission?: Yes Plan: Trending down. Likely this is an inflammatory response r/t hip fracture and repair. However, pt reports multiple left rib fractures several weeks ago and development of a productive cough in the setting of COPD. Her cough has resolved since admission. Chest xray completed in the ED could not exclude an upper lobe pneumonia. Urine culture: NG (final) Blood culture: NG (final) 1- Will empirically cover with Levaquin for CAP, day 6 of treatment. Final dose will be tomorrow evening. (3) COPD (chronic obstructive pulmonary disease) Qualifiers: COPD type: unspecified COPD Qualified Code(s): J44.9 - Chronic obstructive pulmonary disease, unspecified Is this a current diagnosis for this admission?: Yes Plan: Today, the patient reports increased fatigue and productive cough. She denies dyspnea and orthopnea. She is maintaining oxygen saturations, although is now requiring supplemental oxygen via nasal cannula at 4 L/min. Patient does not use home O2. She is conversational without difficulty. Given her severe COPD, will evaluate for exacerbation versus pneumonia with a chest x-ray. Continue home regiment; Advair, Spiriva, chronic Prednisone Will add as needed DuoNeb's, Mucinex, and increase steroid dosing. (4) Acute and chronic respiratory failure Qualifiers: Respiratory failure complication: hypoxia Qualified Code(s): J96.21 - Acute and chronic respiratory failure with hypoxia Is this a current diagnosis for this admission?: Yes Plan: Resolved. Pt initially desaturated down to 75 and required supplemental oxygen ; likely has been related to narcotic pain medications. 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 Plan as above. (5) History of peptic ulcer disease Is this a current diagnosis for this admission?: Yes Plan: Continue Prevacid. (6) Hiatal hernia with GERD Is this a current diagnosis for this admission?: Yes Plan: As above; hopefully pt's symptoms will improve now that the hip is repaired and she can be comfortably positioned with HOB elevated. (7) Hypertension Qualifiers: Hypertension type: essential hypertension Qualified Code(s): I10 - Essential (primary) hypertension Is this a current diagnosis for this admission?: Yes Plan: Labile, primarily elevated, though acceptable given pt's age. 1- Continue home regiment; lisinopril (8) Pre-operative anxiety Is this a current diagnosis for this admission?: Yes Plan: Significant perioperative anxiety and agitation in patient with chronic generalized anxiety disorder treated as an outpatient with Paxil. There is likely an underlying component of dementia that is compounding her anxiety and ability to cope with numerous healthcare staff members, change in plan of care, and pain. 1- Continue home regiment; Paxil 2- Continue low-dose BuSpar twice daily (9) Overdose of opiate or related narcotic Qualifiers: Encounter type: subsequent encounter Injury intent: accidental or unintentional Qualified Code(s): T40.601D - Poisoning by unspecified narcotics , accidental (unintentional), subsequent encounter Is this a current diagnosis for this admission?: Yes Plan: Pt was noted to have poor respiratory effort and hypoxemia shortly after arrival from ED and was provided one dose of Narcan with acceptable response. Patient to receive narcotic pain medications postoperatively; will maintain on continuous pulse oximetry while receiving these medications. - Time Time Spent with patient: 35 or more minutes Medications reviewed and adjusted accordingly: Yes Anticipated discharge: Acute Rehab Within: Other - When cleared by orthopedics and placement made.
[2017-08-11] MEDS ORDERED: LEVALBUTEROL HCL NEB 1.25 MG/3 ML AMPUL NEB PRN (13:19)
[2017-08-11] MEDS ORDERED: LABETALOL HCL INJ 20 MG/4 ML DISP.SYRIN IV PRN (13:53)
[2017-08-11] MEDS ORDERED: METOPROLOL TARTRATE 25 MG TABLET PO ONE (14:30)
[2017-08-11] MEDS: LEVALBUTEROL HCL NEB 1.25 MG/3 ML AMPUL NEB PRN (16:33)
[2017-08-11] MEDS ORDERED: METOPROLOL TARTRATE PF/INJ 5 MG/5 ML SDV IV ONE ×2 (16:37→17:00)
[2017-08-11] MEDS ORDERED: LACTULOSE SYRUP 20 GM/30 ML UDCUP PO PRN (16:45)
[2017-08-11] MEDS: LEVOFLOXACIN 500 MG TABLET PO SCH (17:41)
[2017-08-11] MEDS: RIVAROXABAN 10 MG TABLET PO SCH (21:37)
[2017-08-12] MEDS: ONDANSETRON 4 MG TAB.RAPDIS PO PRN (03:09)
[2017-08-12] MEDS: HEPARIN SOD (PORCINE) 5,000 UNIT/ML 1 ML SYRINGE SUBCUT SCH (05:01)
[2017-08-12] MEDS: NA PHOS,M-B/NA PHOS,DI-BA (ADULT) 133 ML ENEMA PR SCH ×2 (06:07→18:14)
[2017-08-12] MEDS ORDERED: FUROSEMIDE INJ/PF 20 MG/2 ML SDV IV ONE (07:39)
[2017-08-12] MEDS ORDERED: NA PHOS,M-B/NA PHOS,DI-BA (ADULT) 133 ML ENEMA PR ONE (08:00)
[2017-08-12] MEDS: PREDNISONE 20 MG TABLET PO SCH (10:23)
[2017-08-12] MEDS: TRAMADOL HCL 50 MG TABLET PO PRN (10:23)
[2017-08-12] MEDS: GUAIFENESIN 600 MG TABLET.SA PO SCH ×2 (10:24→22:43)
[2017-08-12] MEDS: DOCUSATE SODIUM 100 MG CAPSULE PO SCH ×2 (10:24→18:11)
[2017-08-12] MEDS: BUSPIRONE HCL 10 MG TABLET PO SCH ×2 (10:24→22:43)
[2017-08-12] MEDS: PAROXETINE HCL 20 MG TABLET PO SCH (10:24)
[2017-08-12] MEDS: PREGABALIN 75 MG CAPSULE PO SCH ×2 (10:24→18:11)
[2017-08-12] MEDS: LISINOPRIL 10 MG TABLET PO SCH (10:24)
[2017-08-12] MEDS: MULTIVITAMIN TABLET PO SCH (10:25)
[2017-08-12] MEDS: POLYETHYLENE GLYCOL 3350 POWDER 17 GM/1 PACKET PO SCH (10:26)
[2017-08-12] MEDS: FLUTICASONE/SALMETEROL DISKUS 250-50 MCG/DOSE IH SCH ×2 (10:26→22:43)
[2017-08-12] MEDS: TIOTROPIUM BROMIDE DPI 5 CAP/KIT (18 MCG/CAP) IH SCH (10:28)
[2017-08-12] MEDS: PANTOPRAZOLE SODIUM 40 MG VIAL IV SCH ×2 (10:28→18:14)
--- NOTE | 2017-08-12 12:26 | PDOC PROGRESS REPORT ---
Subjective Progress Note for:: 08/12/17 Subjective:: Patient is seen resting in bed comfortably with family members present. She is postop day 4 status post left proximal femoral hemiarthroplasty with Dr. Lopes. Patient reports that she is comfortable, stating that her pain is well controlled. She complains of continued dyspnea, orthopnea, and productive cough. She became hypoxic overnight with oxygen saturations of 89% while on nasal cannula and briefly required a simple mask. She is currently maintaining O2 saturations >94% on nasal cannula at 5 L/min and fully conversational. She denies a known history of CHF. She denies fever, chills, headache, chest pain. Otherwise she has no questions or concerns today. Physical Exam Vital Signs: Temp Pulse Resp BP Pulse Ox 97.5 F 103 H 16 141/76 H 96 08/12/17 08:06 08/12/17 08:10 08/12/17 08:10 08/12/17 08:06 08/12/17 11:45 Pulse Oximeter Continuous Start: 08/08/17 14: 14 Freq: RTQ4 Status: Active Document 08/12/17 11:45 [facility] [place] (Rec: 08/12/17 11:45 [facility] [place] [email or web address]) Pulse Oximetry Assessment Oxygen Saturation (92-100) 96 Oxygen Flow Rate (L/min) 5 Oxygen Delivery Method Nasal Cannula Fraction of Inspired Oxygen (FIO2) 40 Equipment Usage Equipment in Use Continuous SpO2 Machine # N 13 Intake & Output 08/11/17 08/12/17 08/13/17 06:59 06:59 06:59 Intake Total 940 1270 Output Total 820 1350 Balance 120 -80 Weight 43.6 kg General appearance: PRESENT: no acute distress, thin, well-developed, well- nourished Head exam: PRESENT: atraumatic, normocephalic Eye exam: PRESENT: conjunctiva pink, EOMI, PERRLA. ABSENT: scleral icterus Ear exam: PRESENT: normal external ear exam Mouth exam: PRESENT: moist, tongue midline Neck exam: ABSENT: carotid bruit, JVD, lymphadenopathy, thyromegaly Respiratory exam: PRESENT: crackles, decreased breath sounds - Bibasilar, symmetrical, unlabored, other - Supplemental oxygen via nasal cannula. ABSENT: rales, rhonchi, wheezes Cardiovascular exam: PRESENT: RRR, +S1, +S2, tachycardia. ABSENT: diastolic murmur, rubs, systolic murmur Pulses: PRESENT: normal dorsalis pedis pul Vascular exam: PRESENT: normal capillary refill GI/Abdominal exam: PRESENT: normal bowel sounds, soft. ABSENT: distended, guarding, mass, organolmegaly, rebound, tenderness Rectal exam: PRESENT: deferred Extremities exam: PRESENT: full ROM - Limited range of motion to left hip status post arthroscopic, tenderness - Left hip. ABSENT: calf tenderness, clubbing, pedal edema Neurological exam: PRESENT: alert, awake, oriented to person, oriented to place , oriented to time, oriented to situation, CN II-XII grossly intact. ABSENT: motor sensory deficit Psychiatric exam: PRESENT: appropriate affect, normal mood. ABSENT: homicidal ideation, suicidal ideation Skin exam: PRESENT: dry, intact, warm. ABSENT: cyanosis, rash Results Laboratory Results: 08/11/17 06:52 08/09/17 06:39 08/12/17 08:35 NT-Pro-B Natriuret Pep 4470 H Impressions: Hip X-Ray 08/05/17 06:07 IMPRESSION: Acute left subcapital femoral neck fracture with varus angulation and foreshortening at the fracture site Pelvis X-Ray 08/08/17 09:02 IMPRESSION: Satisfactory postoperative study bipolar prosthesis. Chest X-Ray 08/11/17 00:00 IMPRESSION: Intrathoracic stomach dilated with air-fluid level. Gastric volvulus could not be excluded. Gastric outlet obstruction could not be excluded Pulmonary vascular congestion with trace bilateral pleural effusions. Suspect mild fluid overload or congestive failure Assessment & Plan - Diagnosis (1) Acute and chronic respiratory failure Qualifiers: Respiratory failure complication: hypoxia Qualified Code(s): J96.21 - Acute and chronic respiratory failure with hypoxia Is this a current diagnosis for this admission?: Yes Plan: She does have a history of COPD and is steroid dependent but does not use home oxygen. Chest x-ray yesterday revealed mild fluid overload. She was empirically placed on duo nebs, Mucinex, and increased steroid dosing for possible COPD exacerbation as a contributing factor. She was also provided low-dose p.o. furosemide yesterday with minimal improvement and so will provide IV furosemide today and observe for improvement. Possibility of PE was considered, patient has been on DVT prophylaxis with heparin and then started on Xarelto after surgery, there is no evidence of DVT on exam. Despite this, if patient does not improve with diuresis, should consider CT with PE protocol. (2) Fracture of femoral neck, left Qualifiers: Encounter type: initial encounter Fracture type: closed Qualified Code(s) : S72.002A - Fracture of unspecified part of neck of left femur, initial encounter for closed fracture Is this a current diagnosis for this admission?: Yes Plan: Left subcapital femoral neck fracture with displacement now postop day 4 left femur hemiarthroplasty by Dr. Lopes. Pain will be managed with as needed Tylenol and narcotics. Patient will be observed closely for sedation risk and respiratory depression secondary to narcotic pain medications as she has required Narcan for reversal this admission. She will remain on continuous pulse oximetry while receiving narcotic pain medications. PT/OT to evaluate patient; recommend snf for short-term rehab on charge. Patient is cleared by orthopedics for discharge today. She is agreeable to placement at a snf facility for short-term rehab. (3) Leukocytosis Qualifiers: Leukocytosis type: unspecified Qualified Code(s): D72.829 - Elevated white blood cell count, unspecified Is this a current diagnosis for this admission?: Yes Plan: Trending down. Likely this is an inflammatory response r/t hip fracture and repair. However, pt reports multiple left rib fractures several weeks ago and development of a productive cough in the setting of COPD. Her cough has resolved since admission. Chest xray completed in the ED could not exclude an upper lobe pneumonia. Urine culture: NG (final) Blood culture: NG (final) 1- Will empirically cover with Levaquin for CAP, day 7 of treatment. Final dose will be tomorrow evening. (4) COPD (chronic obstructive pulmonary disease) Qualifiers: COPD type: unspecified COPD Qualified Code(s): J44.9 - Chronic obstructive pulmonary disease, unspecified Is this a current diagnosis for this admission?: Yes Plan: Continued increased fatigue, dyspnea, orthopnea, and productive cough. She is maintaining oxygen saturations, although is now requiring supplemental oxygen via nasal cannula at 5 L/min and briefly required simple mask. Patient does not use home O2. She is conversational without difficulty. Chest x-ray yesterday demonstrated pulmonary vascular congestion with trace bilateral pleural effusions. Suspect mild fluid overload or congestive failure. Continue home regiment; Advair, Spiriva, chronic Prednisone Continue as needed DuoNeb's, Mucinex, and increased steroid dosing. (5) History of peptic ulcer disease Is this a current diagnosis for this admission?: Yes Plan: Continue Prevacid. (6) Hiatal hernia with GERD Is this a current diagnosis for this admission?: Yes Plan: As above; hopefully pt's symptoms will improve now that the hip is repaired and she can be comfortably positioned with HOB elevated. CXR revealed intrathoracic stomach dilated with air-fluid level. Gastric volvulus could not be excluded. Gastric outlet obstruction cannot be excluded. (7) Hypertension Qualifiers: Hypertension type: essential hypertension Qualified Code(s): I10 - Essential (primary) hypertension Is this a current diagnosis for this admission?: Yes Plan: Labile, primarily elevated, though acceptable given pt's age. 1- Continue home regiment; lisinopril (8) Pre-operative anxiety Is this a current diagnosis for this admission?: Yes Plan: Significant perioperative anxiety and agitation in patient with chronic generalized anxiety disorder treated as an outpatient with Paxil. There is likely an underlying component of dementia that is compounding her anxiety and ability to cope with numerous healthcare staff members, change in plan of care, and pain. 1- Continue home regiment; Paxil 2- Continue low-dose BuSpar twice daily (9) Overdose of opiate or related narcotic Qualifiers: Encounter type: subsequent encounter Injury intent: accidental or unintentional Qualified Code(s): T40.601D - Poisoning by unspecified narcotics , accidental (unintentional), subsequent encounter Is this a current diagnosis for this admission?: Yes Plan: Pt was noted to have poor respiratory effort and hypoxemia shortly after arrival from ED and was provided one dose of Narcan with acceptable response. Patient to receive narcotic pain medications postoperatively; will maintain on continuous pulse oximetry while receiving these medications. - Time Time Spent with patient: 25-34 minutes Anticipated discharge: SNF Within: within 24 hours - if respiratory status has improved - Inpatient Certification Based on my medical assessment, after consideration of the patient's comorbidities, presenting symptoms, or acuity I expect that the services needed warrant INPATIENT care.: Yes I certify that my determination is in accordance with my understanding of Medicare's requirements for reasonable and necessary INPATIENT services [42 CFR 412.3e].: Yes
[2017-08-12] MEDS ORDERED: MAG HYDROX/AL HYDROX/SIMETH SUSP 30 ML UDCUP PO PRN (15:30)
[2017-08-12] MEDS ORDERED: TRAMADOL HCL 50 MG TABLET PO PRN (18:25)
[2017-08-12] MEDS: LEVALBUTEROL HCL NEB 1.25 MG/3 ML AMPUL NEB PRN (18:51)
[2017-08-12] MEDS ORDERED: FUROSEMIDE INJ/PF 40 MG/4 ML SDV IV ONE (21:35)
[2017-08-12] MEDS ORDERED: FUROSEMIDE INJ/PF 40 MG/4 ML SDV ONE (21:39)
[2017-08-12 22:02] LABS: HEMATOCRIT 33.8 % (36.0-47.0); HEMOGLOBIN 11.5 g/dL (12.0-15.5); HGB HCT DIFFERENCE 0.7; MEAN CORPUSCULAR HEMOGLOBIN 30.5 pg (27.0-33.4); MEAN CORPUSCULAR HGB CONC 33.9 g/dL (32.0-36.0); MEAN CORPUSCULAR VOLUME 90 fl (80-97); RED BLOOD COUNT 3.77 10^6/uL (3.72-5.28); RED CELL DISTRIBUTION WIDTH 14.7 % (11.5-14.0)
[2017-08-12 22:19] LABS: ANION GAP 8 (5-19); BLOOD UREA NITROGEN 25 mg/dL (7-20); CALCIUM 10.3 mg/dL (8.4-10.2); CARBON DIOXIDE 33 mmol/L (22-30); CHLORIDE 96 mmol/L (98-107); CREATINE KINASE 33 U/L (30-135); CREATININE RESULT 0.52 mg/dL (0.52-1.25); GLUCOSE 227 mg/dL (75-110); POTASSIUM 4.4 mmol/L (3.6-5.0); SODIUM 136.6 mmol/L (137-145)
[2017-08-12 22:20] LABS: ARTERIAL BLOOD O2 SATURATION 86.9 % (94-98)
--- NOTE | 2017-08-12 22:27 | RADIOLOGY REPORT (SQ) ---
EXAM DESCRIPTION: CHEST SINGLE VIEW COMPLETED DATE/TIME: 08/12/2017 10:11 pm REASON FOR STUDY: sob COMPARISON: 08/11/2017 EXAM PARAMETERS: NUMBER OF VIEWS: One view. TECHNIQUE: Single frontal radiographic view of the chest acquired. RADIATION DOSE: NA LIMITATIONS: None. FINDINGS: LUNGS AND PLEURA: Bibasilar densities are again identified which have the appearance of sm all pleural effusions and I cannot exclude some associated atelectasis or infiltrate in the lung base s. Chronic appearing changes are again identified MEDIASTINUM AND HILAR STRUCTURES: No masses. Contour normal. HEART AND VASCULAR STRUCTURES: The configuration of the heart and mediastinal structures is unchanged . Cardiac silhouette remains enlarged. BONES: No acute findings. HARDWARE: None in the chest. OTHER: The previously described large hiatal hernia with an intrathoracic stomach is again identified . IMPRESSION: No significant interval change. No acute changes. Other findings as noted above TECHNICAL DOCUMENTATION: JOB ID: [id number] [employer]- All Rights Reserved
[2017-08-12] MEDS ORDERED: LACTULOSE SYRUP 20 GM/30 ML UDCUP PR ONE (22:30)
[2017-08-12 22:31] LABS: CREATINE KINASE MB 1.38 ng/mL (<4.55); TROPONIN I 0.038 ng/mL
[2017-08-12] MEDS: RIVAROXABAN 10 MG TABLET PO SCH (22:44)
--- NOTE | 2017-08-13 06:57 | PDOC PROGRESS REPORT ---
Subjective Progress Note for:: 08/13/17 Subjective:: 87-year-old white female status post hemiarthroplasty of left hip. Patient sitting upright in hospital bed with BiPAP machine and mask in place. Patient states she wishes to remove the mask however she was informed it was necessary to leave it on. Reason For Visit: LEFT HIP FRACTURE Physical Exam Vital Signs: Temp Pulse Resp BP Pulse Ox 36.4 C 81 19 126/60 H 98 08/13/17 04:00 08/13/17 04:00 08/13/17 04:48 08/13/17 04:00 08/13/17 04:48 Pulse Oximeter Continuous Start: 08/08/17 14: 14 Freq: RTQ4 Status: Active Document 08/13/17 04:48 [facility] (Rec: 08/13/17 04:50 [facility] [email or web address]) Pulse Oximetry Assessment Oxygen Saturation (92-100) 98 Oxygen Delivery Method Bi-pap Fraction of Inspired Oxygen (FIO2) 40 Equipment Usage Equipment in Use Continuous SpO2 Machine # 13 Intake & Output 08/11/17 08/12/17 08/13/17 06:59 06:59 06:59 Intake Total 940 1270 600 Output Total 820 1350 175 Balance 120 -80 425 Weight 43.6 kg Physical Exam: Grossly unchanged from previous exam. Of note he has the new finding of bilateral pleural effusions and the recommended usage of the BiPAP machine she has not made any further progress with physical therapy, nor has she been ambulatory over the past couple days. This will likely prolong her time in the hospital and make for a later date of discharge. Results Laboratory Results: 08/12/17 21:55 08/12/17 21:55 08/12/17 08/12/17 08/12/17 21:55 21:55 22:05 WBC 16.0 H RBC 3.77 Hgb 11.5 L Hct 33.8 L MCV 90 MCH 30.5 MCHC 33.9 RDW 14.7 H Plt Count 267 Carbonic Acid 1.51 H HCO3/H2CO3 Ratio 22:1 ABG pH 7.44 ABG pCO2 50.1 H ABG pO2 50.9 L ABG HCO3 33.4 H ABG O2 Saturation 86.9 L ABG Base Excess 8.0 FiO2 5L Sodium 136.6 L Potassium 4.4 Chloride 96 L Carbon Dioxide 33 H Anion Gap 8 BUN 25 H Creatinine 0.52 Est GFR ( Amer) > 60 Est GFR (Non-Af Amer) > 60 Glucose 227 H Calcium 10.3 H 08/12/17 08/12/17 08/12/17 08:35 21:55 21:55 Creatine Kinase 33 CK-MB (CK-2) 1.38 Troponin I 0.038 NT-Pro-B Natriuret Pep 4470 H 4390 H Impressions: Hip X-Ray 08/05/17 06:07 IMPRESSION: Acute left subcapital femoral neck fracture with varus angulation and foreshortening at the fracture site Pelvis X-Ray 08/08/17 09:02 IMPRESSION: Satisfactory postoperative study bipolar prosthesis. Chest X-Ray 08/12/17 00:00 IMPRESSION: No significant interval change. No acute changes. Other findings as noted above Assessment & Plan - Diagnosis (1) Fracture of femoral neck, left Qualifiers: Encounter type: initial encounter Fracture type: closed Qualified Code(s) : S72.002A - Fracture of unspecified part of neck of left femur, initial encounter for closed fracture Is this a current diagnosis for this admission?: Yes - Plan Summary Plan Summary: 87-year-old white female status post left hip hemiarthroplasty. Patient initially made great progress this with physical therapy and distance of ambulation, however with finding of bilateral pleural effusions she has remained in hospital bed while wearing BiPAP mask. Patient will continue to have pleural effusions managed by hospitalist and hopefully make progress with physical therapy once these have resolved.
[2017-08-13] MEDS: DOCUSATE SODIUM 100 MG CAPSULE PO SCH ×2 (10:11→19:36)
[2017-08-13] MEDS: PREGABALIN 75 MG CAPSULE PO SCH ×2 (10:12→19:36)
[2017-08-13] MEDS: LISINOPRIL 10 MG TABLET PO SCH (10:12)
[2017-08-13] MEDS: MULTIVITAMIN TABLET PO SCH (10:12)
[2017-08-13] MEDS: FLUTICASONE/SALMETEROL DISKUS 250-50 MCG/DOSE IH SCH ×2 (10:13→22:22)
[2017-08-13] MEDS: PREDNISONE 20 MG TABLET PO SCH (10:13)
[2017-08-13] MEDS: POLYETHYLENE GLYCOL 3350 POWDER 17 GM/1 PACKET PO SCH (10:14)
[2017-08-13] MEDS: GUAIFENESIN 600 MG TABLET.SA PO SCH ×2 (10:14→22:22)
[2017-08-13] MEDS: PAROXETINE HCL 20 MG TABLET PO SCH (10:14)
[2017-08-13] MEDS: PANTOPRAZOLE SODIUM 40 MG VIAL IV SCH (10:15)
[2017-08-13] MEDS: BUSPIRONE HCL 10 MG TABLET PO SCH ×2 (10:15→22:22)
[2017-08-13] MEDS ORDERED: BISACODYL 5 MG TABEC PO ONE (13:30)
[2017-08-13] MEDS ORDERED: MAGNESIUM CITRATE 296 ML BOTTLE PO ONE (13:30)
--- NOTE | 2017-08-13 14:23 | PROGRESS NOTE E ---
Progress Note NAME: MARJORIE GOMEZ : 1930 AGE: 87Y DATE: 08/13/2017 ROOM: 434 SUBJECTIVE: The patient is currently lying in bed. She states that she feels remarkably better today in comparison to admission. The patient was steroid dependent prior to admission but now is also O2 dependent. The patient denies any dizziness or chest pain. No fevers or chills. The patient has been afebrile, her blood pressure has been in a good range, and the patient does not voice any other concerns at this time. REVIEW OF SYSTEMS: The rest of the review of systems is negative. MEDICATIONS: Medications have been reviewed. OBJECTIVE: GENERAL: The patient is an 87-year-old female who is awake, alert. She is oriented to person, place, time, and situation. She is verbal, does not appear to be distressed. VITAL SIGNS: As follows: Temperature is 97.7, pulse 84, respirations 22, blood pressure 133/84, oxygen saturation is 96% on 4 L nasal cannula. SKIN: Warm and dry. No rash, not diaphoretic. HEENT: Pupils equal, round, and reactive to light and accommodation. Conjunctivae pink. No JVP. CARDIOVASCULAR: Heart is regular. There is no murmur or rub. CHEST: Clear, symmetrical, unlabored. ABDOMEN: Soft, nontender, nondistended. BACK: No CVA tenderness or sacral edema. EXTREMITIES: No clubbing, cyanosis, edema. PSYCHIATRIC: Appropriate affect. Pleasant mood. DIAGNOSTICS: Lab values are as follows. Hematology obtained on 08/12/2017: WBCs are 16.0, hemoglobin is 11.5, hematocrit is 33.8, platelet count is 267,000. Chemistry obtained on 08/12/2017: Sodium is 136, potassium 4.4, chloride is 96, carbon dioxide 33, BUN 25, creatinine is 0.52, glucose 227, calcium is 10.3. CK 33, CK MB is 1.38, troponin is 0.038, BNP is 4390. IMPRESSION AND PLAN: 1. LEFT FEMORAL NECK FRACTURE. The patient is currently awaiting rehab placement. Will continue supportive therapies and follow. 2. CHRONIC OBSTRUCTIVE PULMONARY DISEASE EXACERBATION. Will once again titrate steroids and continue her on her home medications. 3. ACUTE ON CHRONIC HYPOXEMIC RESPIRATORY FAILURE. The patient is now O2 dependent. The patient also improved with diuresis. 4. HIATAL HERNIA. The patient does have some reflux associated with this. Was advised this could be worked up on an outpatient basis. 5. HYPERTENSION. Blood pressures are labile but overall are in an acceptable range. DISPOSITION: THE PATIENT IS A DO NOT RESUSCITATE/DO NOT INTUBATE. Pending the patient's symptomatology and diagnostic findings, will re-evaluate in the a.m. for transfer to SNF if a bed is available. Time spent on this followup, including assessment/plan, physical examination, patient education and family meeting, is 30 minutes. DICTATING PHYSICIAN: JACQUES JESUS [id number] PHY#: [id number] ID: [id number] JOB#: [id number] ACCT: [id number] cc: >
[2017-08-13] MEDS: TIOTROPIUM BROMIDE DPI 5 CAP/KIT (18 MCG/CAP) IH SCH (15:03)
[2017-08-13] MEDS: RIVAROXABAN 10 MG TABLET PO SCH (22:22)
--- NOTE | 2017-08-14 07:20 | PDOC PROGRESS REPORT ---
Subjective Progress Note for:: 08/14/17 Subjective:: 87-year-old white female a day status post left hip hemiarthroplasty. Patient is awake and alert sitting upright in hospital bed this morning without BiPAP machine and mask on. Patient states she is feeling better and stronger than previously. She also notes that she is not as nauseous but attributes this to decrease in the strength of her pain medicine and requests to be taken off of her oxycodone. Patient was reassured that her oxycodone would be discontinued and she can maintain pain control with tramadol. Patient also notes that she is uncomfortable because a abduction pillow has been placed between her lower extremities. This was an interesting finding as the abduction pillow was not ordered by orthopedic service. Reason For Visit: LEFT HIP FRACTURE Physical Exam Vital Signs: Temp Pulse Resp BP Pulse Ox 36.4 C 95 24 H 135/60 H 95 08/14/17 00:05 08/14/17 00:05 08/14/17 00:05 08/14/17 00:05 08/14/17 03:06 Pulse Oximeter Continuous Start: 08/08/17 14: 14 Freq: RTQ4 Status: Complete Document 08/13/17 08:05 [facility] [place] (Rec: 08/13/17 15:33 [facility] [id number]) Pulse Oximetry Assessment Oxygen Saturation (92-100) 95 Oxygen Flow Rate (L/min) 4 Fraction of Inspired Oxygen (FIO2) 36 Equipment Usage Equipment in Use Continuous SpO2 Machine # N 13 Intake & Output 08/13/17 08/14/17 08/15/17 06:59 06:59 06:59 Intake Total 600 360 Output Total 175 450 Balance 425 -90 General appearance: PRESENT: no acute distress, well-developed, well-nourished Head exam: PRESENT: atraumatic, normocephalic Respiratory exam: PRESENT: wheezes Pulses: PRESENT: normal dorsalis pedis pul, +2 pedal pulses bilateral Vascular exam: PRESENT: normal capillary refill Additional comments: Patient is lying recumbent in hospital bed with bilateral lower extremities in full extension with abduction pillow in place on between lower extremities. This was a curious finding as the abduction pillow was not ordered to be placed by orthopedic service. Patient also notes that this is very uncomfortable. She has minimal pedal edema brisk capillary refill to toes on bilateral lower extremities minimal tenderness to palpation. Her sensory motor functions are intact and her distal neurovascular exam is intact. Musculoskeletal exam: PRESENT: ambulatory Additional comments: Patient make slow progress with physical therapy ambulating only 10 feet independently. This is improvement from previous state where she was not ambulating at all. She will continue to work with physical therapy to improve length of ambulation and strength range of motion of left lower extremity. Neurological exam: PRESENT: alert, awake, oriented to person, oriented to place , oriented to time, oriented to situation, CN II-XII grossly intact. ABSENT: motor sensory deficit Psychiatric exam: PRESENT: appropriate affect, normal mood. ABSENT: homicidal ideation, suicidal ideation Skin exam: PRESENT: dry, intact, warm. ABSENT: cyanosis, rash Results Laboratory Results: 08/12/17 21:55 08/12/17 21:55 08/12/17 08/12/17 08/12/17 08:35 21:55 21:55 Creatine Kinase 33 CK-MB (CK-2) 1.38 Troponin I 0.038 NT-Pro-B Natriuret Pep 4470 H 4390 H Impressions: Hip X-Ray 08/05/17 06:07 IMPRESSION: Acute left subcapital femoral neck fracture with varus angulation and foreshortening at the fracture site Pelvis X-Ray 08/08/17 09:02 IMPRESSION: Satisfactory postoperative study bipolar prosthesis. Chest X-Ray 08/12/17 00:00 IMPRESSION: No significant interval change. No acute changes. Other findings as noted above Assessment & Plan - Diagnosis (1) Fracture of femoral neck, left Qualifiers: Encounter type: initial encounter Fracture type: closed Qualified Code(s) : S72.002A - Fracture of unspecified part of neck of left femur, initial encounter for closed fracture Is this a current diagnosis for this admission?: Yes - Plan Summary Plan Summary: 87-year-old white female 8 days status post left hip hemiarthroplasty. Patient is more alert and awake and happy to no longer be wearing the BiPAP mask. She does state that her lower extremities are uncomfortable due to the abduction pillow placed between bilateral lower extremities this was not ordered by orthopedic service and was discontinued this morning. Patient also notes that she is more comfortable and not as nauseous when she does not regularly take her oxycodone. Therefore oxycodone will be discontinued and patient can maintain pain control with tramadol. She will continue to work with physical therapy to improve distance of ambulation and improve strength and range of motion of left lower extremity. Pending progress with physical therapy we will plan for discharge either later this week or early next week.
[2017-08-14] MEDS ORDERED: PREDNISONE 20 MG TABLET PO SCH (10:00)
[2017-08-14] MEDS: BUSPIRONE HCL 10 MG TABLET PO SCH ×2 (10:02→22:26)
[2017-08-14] MEDS: DOCUSATE SODIUM 100 MG CAPSULE PO SCH ×2 (10:03→18:37)
[2017-08-14] MEDS: FLUTICASONE/SALMETEROL DISKUS 250-50 MCG/DOSE IH SCH ×2 (10:03→22:26)
[2017-08-14] MEDS: TIOTROPIUM BROMIDE DPI 5 CAP/KIT (18 MCG/CAP) IH SCH (10:03)
[2017-08-14] MEDS: PREGABALIN 75 MG CAPSULE PO SCH ×2 (10:03→18:37)
[2017-08-14] MEDS: LISINOPRIL 10 MG TABLET PO SCH (10:04)
[2017-08-14] MEDS: GUAIFENESIN 600 MG TABLET.SA PO SCH ×2 (10:04→22:26)
[2017-08-14] MEDS: PAROXETINE HCL 20 MG TABLET PO SCH (10:05)
[2017-08-14] MEDS: MULTIVITAMIN TABLET PO SCH (10:05)
[2017-08-14] MEDS: POLYETHYLENE GLYCOL 3350 POWDER 17 GM/1 PACKET PO SCH (10:06)
--- NOTE | 2017-08-14 12:08 | PROGRESS NOTE E ---
Progress Note NAME: MARJORIE GOMEZ : 1930 AGE: 87Y DATE: 08/14/2017 ROOM: 434 SUBJECTIVE: The patient is currently lying in bed. The patient states that she does feel better today than yesterday. She describes herself feeling a little better every day. The patient denies any nausea, vomiting, diarrhea. No dizziness or chest pain. She still has shortness of breath but she is currently on 4 L nasal cannula and is oxygenating about 94% while talking to me. The patient has been afebrile, her blood pressures have been in a good range, and the patient does not voice any other concerns at this time. REVIEW OF SYSTEMS: The rest of the review of systems is negative. MEDICATIONS: Medications have been reviewed. OBJECTIVE: GENERAL: The patient is an 87-year-old female who is awake, alert. She is oriented to person, place, time, situation. She is verbal, conversational, does not appear to be in any acute distress. VITAL SIGNS: As follows: Temperature is 98.2, pulse 90, respirations 18, blood pressure 129/55, oxygen saturation is 95% on 4 L nasal cannula. SKIN: Warm and dry. No rash, not diaphoretic. HEENT: Pupils equal, round, and reactive to light and accommodation. Conjunctivae pink. No JVP. CARDIOVASCULAR: Heart is regular. There is no murmur or rub. CHEST: Diminished, symmetrical, unlabored. ABDOMEN: Soft, nontender, nondistended. BACK: No CVA tenderness or sacral edema. EXTREMITIES: No clubbing, cyanosis, edema. PSYCHIATRIC: Appropriate affect. Pleasant mood. DIAGNOSTICS: Lab values are as follows. Hematology obtained on 08/12/2017: WBCs are 16.0, hemoglobin is 11.5, hematocrit is 33.8, platelet count is 267,000. Chemistry obtained on 08/12/2017: Sodium is 136, potassium 4.4, chloride is 96, carbon dioxide is 33, BUN 25, creatinine is 0.52, glucose 227, calcium is 10.3, CK 33. IMPRESSION AND PLAN: 1. LEFT FEMORAL NECK FRACTURE. The patient is currently awaiting rehab placement. Continue supportive therapies and follow. 2. CHRONIC OBSTRUCTIVE PULMONARY DISEASE EXACERBATION. Will continue to titrate her steroids as well as home medication. 3. ACUTE ON CHRONIC HYPOXEMIC RESPIRATORY FAILURE. The patient is now O2 dependent as well as steroid dependent. This has improved overall with diuresis. 4. HIATAL HERNIA. The patient has had some reflux symptoms but this has improved and can be worked up on an outpatient basis. 5. HYPERTENSION. The patient's blood pressures are overall labile but are in the acceptable range. DISPOSITION: THE PATIENT IS A DO NOT RESUSCITATE/DO NOT INTUBATE. Pending the patient's symptomatology and diagnostic findings, will re-evaluate in the a.m. Time spent on this followup, including assessment/plan, physical examination, patient education and family meeting, is 35 minutes. DICTATING PHYSICIAN: JACQUES JESUS NP [id number] PHY#: [id number] ID: [id number] JOB#: [id number] ACCT: [id number] cc: >
[2017-08-14] MEDS ORDERED: FUROSEMIDE 40 MG TABLET PO ONE (16:30)
--- NOTE | 2017-08-14 16:38 | TRANSFER SUMMARY E ---
Transfer Summary NAME: MARJORIE GOMEZ : 1930 AGE: 87Y ADMITTED: 08/05/2017 TRANSFERRED: 08/15/2017 CODE STATUS: DO NOT RESUSCITATE/DO NOT INTUBATE. PRIMARY CARE PROVIDER: Dr. Frye. OPERATIVE SURGEON: Kwadwo Lopes MD. DISCHARGE DIAGNOSES: Include: 1. Left femoral neck fracture. 2. Chronic obstructive pulmonary disease exacerbation with oxygen dependency. 3. Acute on chronic hypoxemic respiratory failure. 4. Rheumatoid arthritis with steroid dependency. 5. Hiatal hernia. 6. Hypertension. 7. Constipation. DISCHARGE MEDICATIONS: Include: 1. Xarelto 10 mg p.o. q. hour of sleep. 2. Lyrica 75 mg p.o. b.i.d. 3. Xopenex 1.25 mg nebulizer q.6 hours p.r.n. 4. Motrin 400 mg p.o. q.8 hours p.r.n. 5. Mucinex 600 mg p.o. q.12 hours. 6. BuSpar 5 mg p.o. q.12 hours. 7. Tylenol 650 mg p.o. q.4 hours p.r.n. 8. Spiriva 1 puff inhalation daily. 9. Prednisone 7.5 mg p.o. daily. 10. Paxil 10 mg p.o. q. a.m. 11. Omeprazole 40 mg p.o. b.i.d. 12. Multivitamin 1 tablet p.o. daily. 13. Melatonin 3 mg p.o. q. hour of sleep. 14. Lisinopril 10 mg p.o. daily. 15. Lasix 20 mg p.o. daily p.r.n. 16. Advair 250/50 one puff inhalation b.i.d. 17. Potassium 10 mEq p.o. daily. OXYGEN: At 4 liters nasal cannula. DIET: As tolerated. ACTIVITY: As per rehab standard. DIAGNOSTICS: Lab values are as follows: Hematology obtained 08/12/2017 demonstrates WBC 13.1, hemoglobin 11.2, hematocrit is 33.6, platelet count is 220,000. Coagulation panel on 08/11/2017: PT is 14.0. INR is 0.01. Chemistry panel 08/12/2017: Sodium is 136, potassium 4.4, chloride is 96, carbon dioxide 33, BUN 25, creatinine is 0.52, glucose 94, calcium is 10.3. CK 33. Troponin 0.038. BNP is 4390. Urinalysis obtained 08/07/2017: Color yellow, appearance clear, pH is 5.0, specific gravity is 1.012, protein negative, glucose negative, ketones trace, occult blood negative, nitrite negative, bilirubin negative, urobilinogen negative, leukocyte esterase was negative, RBC 0, mucus rare, casts negative. Microbiology: Blood cultures obtained 08/05/2017 revealed no growth. Urine culture obtained 08/05/2017 revealed no growth. Chest x-ray obtained on 08/05/2017 revealed hiatal hernia and previous left rib fractures. Hip x-ray obtained 08/05/2017 revealed acute left subcapital femoral neck fracture with varus angulation and foreshortening at the fracture site. Chest x-ray obtained on 08/07/2017 revealed chronic lung changes with large hiatal hernia, increased dorsal kyphosis and rib fracture. Pelvis x-ray obtained 08/07/2017 revealed satisfactory postoperative study of bipolar prosthesis. Chest x-ray obtained on 08/11/2017 revealed intrathoracic somewhat dilated with air fluid, with evidence of pulmonary vascular congestion and bilateral pleural effusion. Suspect mild fluid overload or congestive heart failure. Chest x-ray obtained 08/12/2017 revealed no acute changes, with evidence of small pleural effusions. EKG obtained 08/05/2017 revealed a sinus tachycardia with evidence of left ventricular hypertrophy. PHYSICAL EXAMINATION: GENERAL: On examination, the patient is a frail-appearing 87-year-old female, who is awake, alert. She is oriented to person, place, time and situation. She is verbal, conversational. Does not appear to be distressed. VITAL SIGNS: Temperature is 97.5, pulse 95, respirations 18, blood pressure is 137/67, oxygen saturation 96% on 4 liters nasal cannula. SKIN: Warm and dry. No rash. Not diaphoretic. HEENT: Pupils equal, round and reactive to light and accommodation. Conjunctivae pink. NECK: No JVP. HEART: Regular. No murmur or rub. CHEST: Diminished, symmetrical, unlabored. ABDOMEN: Soft, nontender, nondistended. BACK: No CVA tenderness or sacral edema. EXTREMITIES: No clubbing, cyanosis or edema. PSYCHIATRIC: Appropriate affect. Pleasant mood. HISTORY OF PRESENT ILLNESS: The patient is an 87-year-old female with a past medical history of rheumatoid arthritis, subsequent chronic pain and chronic obstructive pulmonary disease. The patient presented to the emergency department with a chief complaint of mechanical fall, which resulted in a left femur fracture. When the patient arrived via EMS, the patient had noted shortening of the left leg, and imaging did confirm a fracture. At the time of admission, the patient had been given pain medication, and therefore was unable to provide any history, and so history had to be obtained from family, as well as previous medical records. According to the family, the patient sustained a mechanical fall, but did not have any noted syncope or loss of consciousness. The patient has been falling a lot lately and actually sustained left-sided rib fractures a couple of weeks ago, for which she was treated at urgent care and did not want to come to the hospital. At one point in the emergency department, the patient had to be given Narcan, given that she has a labile tolerance of opiates. The patient had become significantly depressed from a respiratory standpoint, but responded nicely to the Narcan. Given the patient's comorbidities, she was referred to the hospital for admission and management. HOSPITAL COURSE: The patient was admitted to the surgical tele unit. The patient underwent ORIF on 08/08/[address] Lopes. The patient had an uncomplicated intraoperative course. Postoperatively, the patient has had significant difficulties with hypoxia. The patient, who was steroid-dependent due to RA, has noted COPD, but had not been oxygen-dependent. Regardless, the patient has required as much as 6 liters of O2 postoperatively and has been titrated down to 4 liters. The patient did have an episode of pulmonary edema, which was felt to be due to over volume resuscitation, and the patient did require diuresis. After this, the patient had significant improvement in her respiratory state. The patient has been participating in therapies without issue and appears stable for rehab. The patient has been cleared for rehab from an orthopedic perspective. The patient's last bowel movement was on 08/12/2017. Patient offered an enema however she refused. DISCHARGE PLAN: The patient to follow up with Orthopedics within 10 to 14 days for hospital followup. Time spent on this discharge, including assessment, plan, physical examination, patient education, review of records and resource alignment is 35 minutes. DICTATING PHYSICIAN: JACQUES JESUS NP [id number] PHY#: [id number] ID: [id number] JOB#: [id number] ACCT: [id number] cc:JACQUES JESUS NP > [facility]
[2017-08-14] MEDS: TRAMADOL HCL 50 MG TABLET PO PRN (18:37)
[2017-08-14] MEDS: RIVAROXABAN 10 MG TABLET PO SCH (22:26)
--- NOTE | 2017-08-15 07:13 | PDOC PROGRESS REPORT ---
Subjective Progress Note for:: 08/15/17 Subjective:: Patient asleep and unarousable with name calling this morning. Per nursing staff she was comfortable overnight and is no longer wearing BiPAP mask. Reason For Visit: LEFT HIP FRACTURE Physical Exam Vital Signs: Temp Pulse Resp BP Pulse Ox 36.5 C 88 21 H 157/57 H 96 08/15/17 00:00 08/15/17 00:00 08/15/17 00:08 08/15/17 00:00 08/15/17 00:08 Pulse Oximeter Continuous Start: 08/08/17 14: 14 Freq: RTQ4 Status: Complete Document 08/13/17 08:05 NSC (Rec: 08/13/17 15:33 NSC [id number]) Pulse Oximetry Assessment Oxygen Saturation (92-100) 95 Oxygen Flow Rate (L/min) 4 Fraction of Inspired Oxygen (FIO2) 36 Equipment Usage Equipment in Use Continuous SpO2 Machine # N [id number] Intake & Output 08/14/17 08/15/17 08/16/17 06:59 06:59 06:59 Intake Total 360 1150 Output Total 450 980 Balance -90 170 Physical Exam: Grossly unchanged from previous exam. General appearance: PRESENT: no acute distress, well-developed, well-nourished Head exam: PRESENT: atraumatic, normocephalic Respiratory exam: PRESENT: unlabored Pulses: PRESENT: normal dorsalis pedis pul, +2 pedal pulses bilateral Vascular exam: PRESENT: normal capillary refill Additional comments: Patient lying recumbent asleep in hospital bed. Her left lower extremity is in full extension. Her OpSite testing is clean dry and intact. She has brisk capillary refill to toes on bilateral lower extremities. Her distal neurovascular exam is intact. Musculoskeletal exam: PRESENT: ambulatory Additional comments: Patient make slow progress with physical therapy ambulating 15 feet independently. She will continue to work with physical therapy throughout her stay in the hospital and will benefit from physical therapy services at a [facility] facility. She will continue to work towards increased strength and range of motion of the left lower extremity. Additional comments: Patient asleep this morning. Psychiatric exam: PRESENT: other - Patient asleep this morning. Skin exam: PRESENT: dry, intact, warm. ABSENT: cyanosis, rash Results Laboratory Results: 08/12/17 21:55 08/12/17 21:55 08/12/17 08/12/17 08/12/17 08:35 21:55 21:55 Creatine Kinase 33 CK-MB (CK-2) 1.38 Troponin I 0.038 NT-Pro-B Natriuret Pep 4470 H 4390 H Impressions: Hip X-Ray 08/05/17 06:07 IMPRESSION: Acute left subcapital femoral neck fracture with varus angulation and foreshortening at the fracture site Pelvis X-Ray 08/08/17 09:02 IMPRESSION: Satisfactory postoperative study bipolar prosthesis. Chest X-Ray 08/12/17 00:00 IMPRESSION: No significant interval change. No acute changes. Other findings as noted above Assessment & Plan - Diagnosis (1) Fracture of femoral neck, left Qualifiers: Encounter type: initial encounter Fracture type: closed Qualified Code(s) : S72.002A - Fracture of unspecified part of neck of left femur, initial encounter for closed fracture Is this a current diagnosis for this admission?: Yes - Plan Summary Plan Summary: 87-year-old white female 6 days status post left hip hemiarthroplasty. Patient' s surgical site is healing appropriately and her OpSite dressing is clean dry and intact. She was asleep and unarousable with name calling this morning. She make slow progress with physical therapy only ambulating 15 feet independently. She will continue to work with PT throughout her stay in the hospital will benefit from physical therapy services at a [facility] facility. She has had respiratory issues throughout her stay at hospital which have been addressed by the hospitalist. As noted before she is cleared for discharge by orthopedic services to a [facility] facility however date of discharge will be at the discretion of the hospitalist service. She will follow-up with Dr. Lopes and [facility] for surgery 2 weeks postoperatively for reevaluation and staple removal.
[2017-08-15] MEDS: TRAMADOL HCL 50 MG TABLET PO PRN (09:25)
[2017-08-15] MEDS: DOCUSATE SODIUM 100 MG CAPSULE PO SCH (09:26)
[2017-08-15] MEDS: LISINOPRIL 10 MG TABLET PO SCH (09:28)
[2017-08-15] MEDS: MULTIVITAMIN TABLET PO SCH (09:28)
[2017-08-15] MEDS: GUAIFENESIN 600 MG TABLET.SA PO SCH (09:28)
[2017-08-15] MEDS: PAROXETINE HCL 20 MG TABLET PO SCH (09:29)
[2017-08-15 09:31] VITALS: BP 145/76
[2017-08-15] MEDS: PREGABALIN 75 MG CAPSULE PO SCH (09:32)
[2017-08-15] MEDS: POLYETHYLENE GLYCOL 3350 POWDER 17 GM/1 PACKET PO SCH (09:32)
[2017-08-15] MEDS ORDERED: FUROSEMIDE 20 MG TABLET PO SCH (10:00)
[2017-08-15] MEDS ORDERED: PREDNISONE 20 MG TABLET PO SCH (10:00)
[2017-08-15] MEDS: BUSPIRONE HCL 10 MG TABLET PO SCH (10:32)
[2017-08-15] MEDS: TIOTROPIUM BROMIDE DPI 5 CAP/KIT (18 MCG/CAP) IH SCH (10:34)
[2017-08-15] MEDS: FLUTICASONE/SALMETEROL DISKUS 250-50 MCG/DOSE IH SCH (11:25)
[2017-08-15] MEDS ORDERED: CLOTRIMAZOLE 10 MG TROCHE PO ONE ×2 (12:00→13:00)
--- NOTE | 2017-08-15 12:18 | PROGRESS NOTE E ---
Progress Note NAME: MARJORIE GOMEZ : 1930 AGE: 87Y DATE: 08/14/2017 ROOM: 434 SUBJECTIVE: The patient is lying in bed. The patient states she feels a little better everyday. She denies any nausea, vomiting, diarrhea. No dizziness, chest pain. No fevers, chills. I have spoken with the patient and she should be okay for rehab tomorrow if the bed is available, and the patient does not voice any other concerns at this time. REVIEW OF SYSTEMS: The rest of the review of systems is negative. MEDICATIONS: Medications have been reviewed. OBJECTIVE: GENERAL: The patient is an 87-year-old female who is awake, alert. She is oriented to person, place, time and situation. She is verbal, conversational. Does not appear to be in any acute distress. VITAL SIGNS: As follows: Temperature is 98.0, pulse 82, respirations 18, blood pressure 145/76. Oxygen saturation is 96% on 4 L nasal cannula. SKIN: Warm and dry. No rash, not diaphoretic. HEENT: Pupils equal, round, and reactive to light and accommodation. Conjunctivae pink. No JVP. CARDIOVASCULAR: Heart is regular. There is no murmur or rub. CHEST: Clear, symmetrical, unlabored, but diminished. ABDOMEN: Soft, nontender, nondistended. Bowel sounds are present. BACK: No CVA tenderness or sacral edema. EXTREMITIES: No clubbing, cyanosis, edema. PSYCHIATRIC: Appropriate affect. Pleasant mood. DIAGNOSTICS: Lab values are as follows. Hematology obtained on 08/12/2017: WBCs are 16, hemoglobin is 11.5, hematocrit is 33.8, platelet count is 189. Chemistry obtained on 08/12/2017: Sodium is 137, potassium 4.4, chloride is 96, carbon dioxide 33, BUN 25, creatinine is 0.52, glucose 94, calcium is 10.3, CK is 33. IMPRESSION AND PLAN: 1. LEFT FEMORAL NECK FRACTURE. The patient is currently awaiting rehab placement. The patient can go as soon as a bed is available. Continue supportive therapies and follow. 2. CHRONIC OBSTRUCTIVE PULMONARY DISEASE. Will continue to titrate the patient's steroids as well as her home inhalers. 3. ACUTE ON CHRONIC HYPOXEMIC RESPIRATORY FAILURE. The patient is now O2 dependent as well as steroid dependent. This did improve with diuresis. 4. HIATAL HERNIA. The patient has had some reflux symptoms but overall has improved. This can be worked up in an outpatient setting. 5. HYPERTENSION. The patient's blood pressures overall have improved. Will continue current medication. DISPOSITION: THE PATIENT IS A DO NOT RESUSCITATE/DO NOT INTUBATE. The patient can go to rehab as soon as a bed is available. Time spent on this followup, including assessment, plan, physical examination, patient education, family meeting, and review of records is 25 minutes. DICTATING PHYSICIAN: JACQUES JESUS NP [id number] PHY#: [id number] ID: [id number] JOB#: [id number] ACCT: [id number] cc: > MTDD
[2017-08-15] MEDS: ONDANSETRON 4 MG TAB.RAPDIS PO PRN (12:59)
[2017-08-15] MEDS ORDERED: NA PHOS,M-B/NA PHOS,DI-BA (ADULT) 133 ML ENEMA PR ONE (14:00)
== END 2017-08-15 14:17 | DRG 469 ==
LOC: ER 05:09 → EH 09:53 → 4W 13:26 → 4S 08-07 18:57
PROVIDERS: ADMIT Internal Medicine; ATTEND Internal Medicine
PROC: 0SRS0JA Replacement of Left Hip Joint, Femoral Surface with Synthetic Substitute, Uncemented, Open Approach (ICD-10-PCS; principal; 2017-08-08 08:00)
DX: S72.012A Unspecified intracapsular fracture of left femur, initial encounter for closed fracture (principal); J96.21 Acute and chronic respiratory failure with hypoxia; J44.1 Chronic obstructive pulmonary disease with (acute) exacerbation; J90 Pleural effusion, not elsewhere classified; Z66 Do not resuscitate; I10 Essential (primary) hypertension; T40.601A Poisoning by unspecified narcotics, accidental (unintentional), initial encounter; Z53.29 Procedure and treatment not carried out because of patient's decision for other reasons; F41.8 Other specified anxiety disorders; M79.7 Fibromyalgia; S22.42XG Multiple fractures of ribs, left side, subsequent encounter for fracture with delayed healing; Y92.019 Unspecified place in single-family (private) house as the place of occurrence of the external cause; W18.39XA Other fall on same level, initial encounter; Y93.89 Activity, other specified; Y92.9 Unspecified place or not applicable; Z60.2 Problems related to living alone; Z79.51 Long term (current) use of inhaled steroids; Z79.899 Other long term (current) drug therapy; Z79.52 Long term (current) use of systemic steroids; K44.9 Diaphragmatic hernia without obstruction or gangrene
CPT/HCPCS: 01210; 36415; 36600; 71010; 71020; 72170; 73522; 80048; 81001; 82550; 82553; 82803; 83880; 84484; 85027; 85610; 85730; 87040; 87086; 88305; 88311; 93005; 93010; 94640; 94660; 94667; 94762; 94799; 96361; 96365; 96375; 99285; C9290; G8978-GP; G8979-GP; G8987-GO; G8988-GO; J0131; J0330; J0690; J1170; J1644; J1741; J1940; J2250; J2270; J2310; J2405; J2704; J2765; J3010; J3370; J3490; J7030; J7050; J7060; J7512; J7620; S0119; S0164

== ENCOUNTER 2017-08-30 15:21 | Inpatient (IN) | payer MEDICARE ==
[2017-08-30] MEDS ORDERED: MAG HYDROX/AL HYDROX/SIMETH SUSP 30 ML UDCUP PO PRN (15:47)
[2017-08-30] MEDS: RINGERS SOLUTION,LACTATED 1,000 ML IV PRN (18:53)
[2017-08-30] MEDS: SENNOSIDES/DOCUSATE 8.6-50 MG 1 EACH TABLET PO SCH (18:54)
[2017-08-30] MEDS ORDERED: NA PHOS,M-B/NA PHOS,DI-BA (ADULT) 133 ML ENEMA PR PRN (21:33)
[2017-08-30] MEDS ORDERED: IBUPROFEN 400 MG TABLET PO PRN (21:33)
[2017-08-30] MEDS ORDERED: BISACODYL 10 MG SUPP.RECT PR PRN (21:33)
[2017-08-30] MEDS ORDERED: MAGNESIUM HYDROXIDE SUSP 30 ML UDCUP PO PRN (21:33)
[2017-08-30] MEDS ORDERED: LEVALBUTEROL HCL NEB 1.25 MG/3 ML AMPUL NEB PRN (21:33)
[2017-08-30] MEDS ORDERED: TRAMADOL HCL 50 MG TABLET PO PRN (21:33)
[2017-08-30] MEDS ORDERED: FUROSEMIDE 20 MG TABLET PO PRN (21:33)
[2017-08-30] MEDS ORDERED: (PENDING PHARMACY ID) (Melatonin [Melatin] 3 MG) PO SCH (22:00)
[2017-08-31] MEDS: LANSOPRAZOLE 30 MG TAB.RAP.DR PO SCH ×3 (00:31→21:29)
[2017-08-31] MEDS: GUAIFENESIN 600 MG TABLET.SA PO SCH ×3 (00:31→21:29)
[2017-08-31] MEDS: FLUTICASONE/SALMETEROL DISKUS 250-50 MCG/DOSE IH SCH ×3 (01:36→21:29)
[2017-08-31] MEDS: ONDANSETRON HCL INJ/PF 4 MG/2 ML SDV IV PRN (03:46)
[2017-08-31] MEDS: RINGERS SOLUTION,LACTATED 1,000 ML IV PRN (04:37)
[2017-08-31 05:40] LABS: HEMOGLOBIN 8.1 g/dL (12.0-15.5); HGB HCT DIFFERENCE 0.3; MEAN CORPUSCULAR HEMOGLOBIN 30.6 pg (27.0-33.4); MEAN CORPUSCULAR HGB CONC 33.8 g/dL (32.0-36.0); MEAN CORPUSCULAR VOLUME 91 fl (80-97); RED BLOOD COUNT 2.65 10^6/uL (3.72-5.28); WHITE BLOOD COUNT 11.7 10^3/uL (4.0-10.5)
[2017-08-31 05:55] LABS: BLOOD UREA NITROGEN 17 mg/dL (7-20); CALCIUM 8.5 mg/dL (8.4-10.2); CARBON DIOXIDE 30 mmol/L (22-30); CHLORIDE 107 mmol/L (98-107); CREATININE RESULT 0.43 mg/dL (0.52-1.25); GLUCOSE 72 mg/dL (75-110)
[2017-08-31 06:06] LABS: POTASSIUM 4.7 mmol/L (3.6-5.0); SODIUM 139.3 mmol/L (137-145)
[2017-08-31 06:07] LABS: ANION GAP 2 (5-19)
--- NOTE | 2017-08-31 06:38 | PDOC H&P ---
History of Present Illness Admission Date/PCP: 08/30/17 15:21 Patient complains of: Left hip pain History of Present Illness: MARJORIE GOMEZ is a 87 year old female status post a left proximal femoral hemiarthroplasty on for femoral neck fracture. The patient did well initially but had an episode involving a recliner at the rehabilitation facility, a spring within recliner and an abrupt change in position when the spring was released. She had immediate onset left hip pain. An x-ray at that time demonstrated a dislocation of the left hemiarthroplasty. Patient is admitted for management thereof. Past Medical History Cardiac Medical History: Reports: Hypertension Pulmonary Medical History: Reports: Chronic Obstructive Pulmonary Disease (COPD) GI Medical History: Reports: Peptic Ulcer Disease Musculoskeltal Medical History: Reports: Arthritis Psychiatric Medical History: Denies: Depression Past Surgical History Past Surgical History: Reports: Appendectomy, Cholecystectomy, Hysterectomy - partial, Orthopedic Surgery - Left proximal femoral hemiarthroplasty Social History Information Source: Patient, [facility] Records Lives with: Other Smoking Status: Never Smoker Frequency of Alcohol Use: None Hx Recreational Drug Use: No Hx Prescription Drug Abuse: No Family History Family History: Reviewed & Not Pertinent Parental Family History Reviewed: No Children Family History Reviewed: No Sibling(s) Family History Reviewed.: No Medication/Allergy Home Medications: Acetaminophen [Tylenol 325 mg Tablet] 650 mg PO Q4HP PRN 08/30/17 Azithromycin [Zithromax 250 mg Tablet] 500 mg PO DAILY MDD stop 09/0208/30/17 Bisacodyl [Dulcolax 10 mg Supp.rect] 10 mg NM ASDIR PRN MDD See Patient Comments 08/30/17 Fluticasone/Salmeterol [Advair 250-50 Diskus 14 Dose/Diskus] 1 inh IH Q12 Furosemide [Lasix 20 mg Tablet] 20 mg PO DAILYP PRN 08/30/17 Guaifenesin [Mucinex Sr 600 mg Tablet.sa] 600 mg PO Q12 08/30/17 Ibuprofen [Motrin 400 mg Tablet] 400 mg PO Q8HP PRN 08/30/17 Levalbuterol HCl [Xopenex Neb 1.25 mg/3 ml Ampul] 1.25 mg NEB RTQ6HP PRN Lisinopril [Prinivil 10 mg Tablet] 10 mg PO DAILY 12/15/17 Magnesium Hydroxide [Milk of Magnesia 30 ml Udcup] 30 ml PO ASDIR PRN MDD See Patient Comments 08/30/17 Melatonin [Melatin] 3 mg PO QHS 08/30/17 Multivitamin [Tab-A-Bassem (Multiple Vitamin) Tablet] 1 tab PO DAILY 08/30/17 Na Phos,M-B/Na Phos,Di-Ba [Fleet Enema (Adult) 133 ml] 1 applic NM ASDIR PRN MDD See Patient Comments 08/30/17 Omeprazole 40 mg PO Q12 08/30/17 Paroxetine HCl [Paxil] 10 mg PO DAILY 08/30/17 Potassium Chloride [Klor-Con 10 Meq Tablet.sa] 10 meq PO DAILY 08/30/17 Prednisone [Deltasone 5 mg Tablet] 7.5 mg PO DAILY 08/30/17 Promethazine HCl [Phenergan 25 mg Tablet] 25 mg PO Q6HP PRN MDD 3 tabs 08/30/17 Rivaroxaban [Xarelto 10 mg Tablet] 10 mg PO QHS 08/30/17 Tiotropium [place] [Spiriva] 1 puff IH DAILY 08/30/17 Tramadol HCl [Ultram 50 mg Tablet] 50 mg PO Q6HP PRN 08/30/17 Allergies/Adverse Reactions: buspirone [From BuSpar] Allergy (Intermediate, Verified 08/30/17 20:13) skakes uncontrollable ceftriaxone [From Rocephin] Allergy (Verified 08/05/17 05:33) codeine [Codeine] Allergy (Verified 08/08/11 16:45) adhesive tape Adverse Reaction (Intermediate, Verified 08/30/17 20:08) peels her skin off hydromorphone [From Dilaudid] Adverse Reaction (Intermediate, Verified 08/30/17 20:10) Hallucinations pregabalin [From Lyrica] Adverse Reaction (Intermediate, Verified 08/30/17 20:11 ) Blurred vision Review of Systems All systems: as per PMH Physical Exam Vital Signs: Temp Pulse Resp BP Pulse Ox 36.7 C 81 18 119/45 L 99 08/31/17 00:01 08/31/17 00:01 08/31/17 00:01 08/31/17 00:01 08/31/17 00:01 Intake & Output 08/29/17 08/30/17 08/31/17 06:59 06:59 06:59 Intake Total 1440 Balance 1440 Weight 39.973 kg Physical Exam: The patient is a frail, almost cachectic appearing elderly white female in a position on the hospital bed General appearance: PRESENT: mild distress Head exam: PRESENT: normocephalic Eye exam: PRESENT: EOMI Respiratory exam: PRESENT: unlabored Cardiovascular exam: PRESENT: RRR Pulses: PRESENT: +1 pedal pulses bilateral Vascular exam: PRESENT: normal capillary refill GI/Abdominal exam: PRESENT: soft Rectal exam: PRESENT: deferred Extremities exam: PRESENT: other Musculoskeletal exam: PRESENT: other - Left lower extremity shortened and rotated. Distal neurovascular examination is intact. Passive range of motion is painful. Neurological exam: PRESENT: alert, awake, oriented to person, oriented to place , oriented to time, oriented to situation. ABSENT: motor sensory deficit Psychiatric exam: PRESENT: appropriate affect, normal mood. ABSENT: homicidal ideation, suicidal ideation Skin exam: PRESENT: dry, intact, warm. ABSENT: cyanosis, rash Results Laboratory Results: 08/31/17 05:23 08/31/17 05:23 08/31/17 08/31/17 05:23 05:23 WBC 11.7 H RBC 2.65 L Hgb 8.1 L Hct 24.0 L MCV 91 MCH 30.6 MCHC 33.8 RDW 15.0 H Plt Count 177 Sodium 139.3 Potassium 4.7 Chloride 107 Carbon Dioxide 30 Anion Gap 2 L BUN 17 Creatinine 0.43 L Est GFR ( Amer) > 60 Est GFR (Non-Af Amer) > 60 Glucose 72 L Calcium 8.5 Status: Imported from PACS Assessment & Plan - Diagnosis (1) Dislocation of internal left hip prosthesis, initial encounter Is this a current diagnosis for this admission?: Yes Plan: 87-year-old white female status post left hip hemiarthroplasty for femoral neck fracture now with a prosthetic dislocation. Plan will be for a closed reduction , application of a knee immobilizer, and ongoing rehabilitation. - Time Time Spent: 50 to 70 Minutes Anticipated discharge: SNF Within: within 24 hours
[2017-08-31] MEDS ORDERED: RINGERS SOLUTION,LACTATED 1,000 ML IV PRN (06:57)
[2017-08-31] MEDS ORDERED: MIDAZOLAM 2 MG/2 ML INJ ONE (07:33)
[2017-08-31] MEDS ORDERED: FENTANYL CITRATE INJ/PF 100 MCG/2 ML AMPUL ONE (07:33)
[2017-08-31] MEDS ORDERED: KETAMINE HCL INJ 500 MG/10 ML VIAL ONE (07:33)
[2017-08-31] MEDS ORDERED: PROPOFOL INJ 200 MG/20 ML VIAL IV ONE (07:33)
[2017-08-31] MEDS ORDERED: CEFAZOLIN INJ 1 GM VIAL ONE (08:49)
[2017-08-31] MEDS ORDERED: LIDOCAINE 2% INJ-PF (20 MG/ML) 2 ML AMPUL ONE (08:54)
[2017-08-31] MEDS ORDERED: ACETAMINOPHEN 100 ML IV ONE (08:57)
--- NOTE | 2017-08-31 09:03 | RADIOLOGY REPORT (SQ) ---
EXAM DESCRIPTION: NO CHG FLUORO; HIP UNILATERAL-1 VIEW COMPLETED DATE/TIME: 08/31/2017 8:45 am REASON FOR STUDY: CLOSED REDUCTION LT HIP COMPARISON: 08/08/2017 immediate postoperative pelvic radiographs. FLUOROSCOPY TIME: 0.2 minutes 1 images saved to PACS. TECHNIQUE: Intra-operative images acquired during surgical procedure to evaluate progress. NUMBER OF IMAGES: 1 LIMITATIONS: None. FINDINGS: Superiorly dislocated hip replacement (left based on correlation with prior study, no R/L annotation on image) on the single image provided. IMPRESSION: IMAGE(S) OBTAINED DURING PROCEDURE. COMMENT: Quality ID [id number]: Final reports for procedures using fluoroscopy that document radiation exp osure indices, or exposure time and number of fluorographic images (if radiation exposure indices are not available) Please consult full operative report of the attending physician for description of the procedure. TECHNICAL DOCUMENTATION: JOB ID: [id number] [employer]- All Rights Reserved
--- NOTE | 2017-08-31 09:35 | Operative Report ---
Operative Report DATE OF SURGERY: 08/31/17 PREOPERATIVE DIAGNOSIS: Dislocated left prosthetic hip OPERATION: Attempted and unsuccessful closed reduction. Open reduction of left prosthetic hip SURGEON: ENRIQUE JOHNSON ANESTHESIA: GA TISSUE REMOVED OR ALTERED: Cultures to microbiology ESTIMATED BLOOD LOSS: 100 PROCEDURE: The patient supine on the operating table under conscious sedation and with fluoroscopic guidance an attempt is made at a closed reduction. There is some tearing of the skin over the posterior lateral aspect of the proximal tibia as I do this, there is a prosthetic knee involved in this extremity, and it was not easy to bring the hip down towards the level of the acetabulum. I became concerned about collateral damage and decided to abort the closed reduction and proceed with an open reduction. I went out to the waiting room talk to both daughters about this. Subsequently patient underwent a general anesthetic was placed in a right lateral decubitus position and prepped and draped in sterile fashion. Using a previous incision the skin and subcutaneous tissue are open. There is a hematoma underneath which is cultured and evacuated. Under direct visualization the hip is reduced. It appears to be stable through an active range of motion to a reasonable degree. Wound is irrigated with 3 L normal saline containing bacitracin pulse lavage. Subsequently the posterior capsule was again sutured. The wound is closed in layers with interrupted Vicryl followed by reshma. Sterile compressive dressing and an abduction pillow were applied and the patient's return to the PACU in satisfactory condition.
[2017-08-31] MEDS ORDERED: ASPIRIN 81 MG TABLET, ENT COATED PO ONE (11:00)
[2017-08-31] MEDS: TRAMADOL HCL 50 MG TABLET PO PRN ×2 (12:17→23:59)
[2017-08-31] MEDS: PAROXETINE HCL 20 MG TABLET PO SCH (12:21)
[2017-08-31] MEDS: AZITHROMYCIN 250 MG TABLET PO SCH (12:23)
[2017-08-31] MEDS: PREDNISONE 5 MG TABLET PO SCH (12:24)
[2017-08-31] MEDS: POTASSIUM CHLORIDE 10 MEQ TABLET.SA PO SCH (12:26)
[2017-08-31] MEDS: SENNOSIDES/DOCUSATE 8.6-50 MG 1 EACH TABLET PO SCH ×2 (12:27→19:32)
[2017-08-31] MEDS: TIOTROPIUM BROMIDE DPI 5 CAP/KIT (18 MCG/CAP) IH SCH (12:29)
[2017-08-31] MEDS ORDERED: FUROSEMIDE INJ/PF 20 MG/2 ML SDV IV PRN ×2 (15:18→17:59)
[2017-08-31] MEDS: MULTIVITAMIN TABLET PO SCH (15:27)
[2017-08-31] MEDS: OXYCODONE-ACETAMINOPHEN 5-325 MG TABLET PO PRN ×2 (15:28→22:47)
[2017-08-31] MEDS: LISINOPRIL 10 MG TABLET PO SCH (15:29)
--- NOTE | 2017-08-31 18:20 | PDOC CONSULTATION ---
Consultation Consult Date: 08/31/17 Consult reason:: Medical management History of Present Illness Admission Date/PCP: 08/30/17 15:21 History of Present Illness: Patient was admitted to the surgery service after left hip fracture status post repair. Internal medicine service is consulted for general medical management. I presume management of the patient's known history of hypertension. At the bedside the patient currently complains of pain in her leg. She says her hip is not bothering her. She says her legs are quite tender because she has numerous skin tears and that her skin is quite fragile. Otherwise the patient has no complaints outside of this. She is preparing to receive 2 units of packed red blood cells. Past Medical History Cardiac Medical History: Reports: Hypertension Pulmonary Medical History: Reports: Chronic Obstructive Pulmonary Disease (COPD) GI Medical History: Reports: Peptic Ulcer Disease Musculoskeltal Medical History: Reports: Arthritis Past Surgical History Past Surgical History: Reports: Appendectomy, Cholecystectomy, Hysterectomy - partial, Orthopedic Surgery - Left proximal femoral hemiarthroplasty Social History Lives with: Other Smoking Status: Never Smoker Frequency of Alcohol Use: None Hx Recreational Drug Use: No Hx Prescription Drug Abuse: No - Advance Directive Resuscitation Status: Full Code Family History Family History: None Parental Family History Reviewed: Yes Children Family History Reviewed: Yes Sibling(s) Family History Reviewed.: Yes Medication/Allergy Home Medications: Acetaminophen [Tylenol 325 mg Tablet] 650 mg PO Q4HP PRN 08/30/17 Azithromycin [Zithromax 250 mg Tablet] 500 mg PO DAILY MDD stop 09/0208/30/17 Bisacodyl [Dulcolax 10 mg Supp.rect] 10 mg SD ASDIR PRN MDD See Patient Comments 08/30/17 Fluticasone/Salmeterol [Advair 250-50 Diskus 14 Dose/Diskus] 1 inh IH Q12 Furosemide [Lasix 20 mg Tablet] 20 mg PO DAILYP PRN 08/30/17 Guaifenesin [Mucinex Sr 600 mg Tablet.sa] 600 mg PO Q12 08/30/17 Ibuprofen [Motrin 400 mg Tablet] 400 mg PO Q8HP PRN 08/30/17 Levalbuterol HCl [Xopenex Neb 1.25 mg/3 ml Ampul] 1.25 mg NEB RTQ6HP PRN Lisinopril [Prinivil 10 mg Tablet] 10 mg PO DAILY 08/30/17 Magnesium Hydroxide [Milk of Magnesia 30 ml Udcup] 30 ml PO ASDIR PRN MDD See Patient Comments 08/30/17 Melatonin [Melatin] 3 mg PO QHS 08/30/17 Multivitamin [Tab-A-Bassem (Multiple Vitamin) Tablet] 1 tab PO DAILY 08/30/17 Na Phos,M-B/Na Phos,Di-Ba [Fleet Enema (Adult) 133 ml] 1 applic SD ASDIR PRN MDD See Patient Comments 08/30/17 Omeprazole 40 mg PO Q12 08/30/17 Paroxetine HCl [Paxil] 10 mg PO DAILY 08/30/17 Potassium Chloride [Klor-Con 10 Meq Tablet.sa] 10 meq PO DAILY 08/30/17 Prednisone [Deltasone 5 mg Tablet] 7.5 mg PO DAILY 08/30/17 Promethazine HCl [Phenergan 25 mg Tablet] 25 mg PO Q6HP PRN MDD 3 tabs 08/30/17 Rivaroxaban [Xarelto 10 mg Tablet] 10 mg PO QHS 08/30/17 Tiotropium [place] [Spiriva] 1 puff IH DAILY 08/30/17 Tramadol HCl [Ultram 50 mg Tablet] 50 mg PO Q6HP PRN 08/30/17 Allergies/Adverse Reactions: buspirone [From BuSpar] Allergy (Intermediate, Verified 08/30/17 20:13) skakes uncontrollable ceftriaxone [From Rocephin] Allergy (Verified 08/05/17 05:33) codeine [Codeine] Allergy (Verified 08/08/11 16:45) adhesive tape Adverse Reaction (Intermediate, Verified 08/30/17 20:08) peels her skin off hydromorphone [From Dilaudid] Adverse Reaction (Intermediate, Verified 08/30/17 20:10) Hallucinations pregabalin [From Lyrica] Adverse Reaction (Intermediate, Verified 08/30/17 20:11 ) Blurred vision Review of Systems Review of Systems: The patient has not had any fevers, chills, nausea, vomiting. She does complain of lower extremity pain due to skin tears. 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 She also says that she gets short of breath because of her COPD. She denies any current shortness of breath now. The patient denies any current chest pain either. Physical Exam Vital Signs: Temp Pulse Resp BP Pulse Ox 97.8 F 88 12 109/46 L 96 08/31/17 11:24 08/31/17 11:24 08/31/17 11:24 08/31/17 11:24 08/31/17 10:57 Intake & Output 08/30/17 08/31/17 09/01/17 06:59 06:59 06:59 Intake Total 1706 3740 Output Total 1700 3000 Balance 6 740 Weight 39.973 kg GENERAL: This is a well-developed under nourished appearing elderly frail white female resting in bed currently in no acute distress. HEENT: Normocephalic, atraumatic. Decreased vocal projection. No scleral icterus. HEART: Regular rate and rhythm. No murmurs, rubs or gallops. LUNGS: Clear to auscultation bilaterally with equal rise and fall of the chest. ABDOMEN: Soft, nontender, nondistended with normoactive bowel sounds EXTREMETIES: No clubbing, cyanosis or edema. 2+ peripheral pulses bilaterally. Multiple skin tears on the arms and legs. NEURO: Awake, alert and oriented 3. Cranial nerves II through XII are grossly intact. Results Laboratory Results: 08/31/17 05:23 08/31/17 05:23 08/31/17 08/31/17 08/31/17 05:23 05:23 12:50 WBC 11.7 H RBC 2.65 L Hgb 8.1 L Hct 24.0 L MCV 91 MCH 30.6 MCHC 33.8 RDW 15.0 H Plt Count 177 Sodium 139.3 Potassium 4.7 Chloride 107 Carbon Dioxide 30 Anion Gap 2 L BUN 17 Creatinine 0.43 L Est GFR ( Amer) > 60 Est GFR (Non-Af Amer) > 60 Glucose 72 L Calcium 8.5 Blood Type B POSITIVE Antibody Screen NEGATIVE Impressions: Fluoroscopy 08/31/17 00:00 IMPRESSION: IMAGE(S) OBTAINED DURING PROCEDURE. Hip X-Ray 08/31/17 00:00 IMPRESSION: IMAGE(S) OBTAINED DURING PROCEDURE. Assessment & Plan - Diagnosis (1) Fracture of femoral neck, left Qualifiers: Encounter type: initial encounter Fracture type: closed Qualified Code(s) : S72.002A - Fracture of unspecified part of neck of left femur, initial encounter for closed fracture Plan: As per primary service (2) COPD (chronic obstructive pulmonary disease) Qualifiers: COPD type: unspecified COPD Qualified Code(s): J44.9 - Chronic obstructive pulmonary disease, unspecified Is this a current diagnosis for this admission?: Yes Plan: No acute exacerbation. continue prednisone, inhalers and nebs (3) Hypertension Qualifiers: Hypertension type: essential hypertension Qualified Code(s): I10 - Essential (primary) hypertension Is this a current diagnosis for this admission?: Yes Plan: Continue home meds as ordered by surgery service. - Time Time Spent: 30 to 50 Minutes
[2017-08-31] MEDS: CEFAZOLIN 2 GM/D5W RTU 2 GM/50 ML RTUPB IV SCH (19:42)
[2017-09-01] MEDS: CEFAZOLIN 2 GM/D5W RTU 2 GM/50 ML RTUPB IV SCH (03:07)
[2017-09-01 05:35] LABS: HEMATOCRIT 30.1 % (36.0-47.0); HGB HCT DIFFERENCE 0.8; MEAN CORPUSCULAR HEMOGLOBIN 30.4 pg (27.0-33.4); MEAN CORPUSCULAR HGB CONC 34.2 g/dL (32.0-36.0); MEAN CORPUSCULAR VOLUME 89 fl (80-97); RED BLOOD COUNT 3.39 10^6/uL (3.72-5.28); RED CELL DISTRIBUTION WIDTH 15.5 % (11.5-14.0); WHITE BLOOD COUNT 11.8 10^3/uL (4.0-10.5)
[2017-09-01 05:38] LABS: ANION GAP 5 (5-19); BLOOD UREA NITROGEN 14 mg/dL (7-20); CALCIUM 8.7 mg/dL (8.4-10.2); CARBON DIOXIDE 32 mmol/L (22-30); CHLORIDE 102 mmol/L (98-107); CREATININE RESULT 0.45 mg/dL (0.52-1.25); GLUCOSE 77 mg/dL (75-110); POTASSIUM 4.5 mmol/L (3.6-5.0); SODIUM 138.5 mmol/L (137-145)
[2017-09-01 05:41] LABS: HEMOGLOBIN 10.3 g/dL (12.0-15.5)
[2017-09-01] MEDS: OXYCODONE-ACETAMINOPHEN 5-325 MG TABLET PO PRN ×2 (06:53→22:05)
--- NOTE | 2017-09-01 08:52 | PDOC PROGRESS REPORT ---
Subjective Progress Note for:: 09/01/17 Reason For Visit: LEFT DISLOCATED HIP HEMIARTHROPLASTY 87-year-old white female status post left proximal femoral hemiarthroplasty on for femoral neck fracture with subsequent postoperative dislocation. She is now postop day 1 from an open reduction internal fixation of the prosthetic dislocation. Physical Exam Vital Signs: Temp Pulse Resp BP Pulse Ox 36.5 C 79 16 100/54 L 92 09/01/17 00:00 09/01/17 00:00 09/01/17 00:00 09/01/17 00:00 09/01/17 00:00 Intake & Output 08/31/17 09/01/17 09/02/17 06:59 06:59 06:59 Intake Total 1706 5300 Output Total 1700 3000 Balance 6 2300 Weight 39.973 kg 39.4 kg General appearance: PRESENT: no acute distress, thin Head exam: PRESENT: normocephalic Respiratory exam: PRESENT: unlabored Cardiovascular exam: PRESENT: RRR Pulses: PRESENT: +1 pedal pulses bilateral GI/Abdominal exam: PRESENT: soft Rectal exam: PRESENT: deferred Extremities exam: PRESENT: other - Leg lengths are equal. Distal neurovascular examination is intact. Neurological exam: PRESENT: alert, awake, oriented to person, oriented to place , oriented to time, oriented to situation. ABSENT: motor sensory deficit Psychiatric exam: PRESENT: appropriate affect, normal mood. ABSENT: homicidal ideation, suicidal ideation Skin exam: PRESENT: dry, intact, warm, other - Multiple skin tears about both lower extremities as well as ecchymosis. Some of these resulted from the attempted closed reduction. All are covered with op sites.. ABSENT: cyanosis, rash Results Laboratory Results: 09/01/17 04:51 09/01/17 04:51 08/31/17 09/01/17 09/01/17 12:50 04:51 04:51 WBC 11.8 H RBC 3.39 L Hgb 10.3 L D Hct 30.1 L MCV 89 MCH 30.4 MCHC 34.2 RDW 15.5 H Plt Count 161 Sodium 138.5 Potassium 4.5 Chloride 102 Carbon Dioxide 32 H Anion Gap 5 BUN 14 Creatinine 0.45 L Est GFR ( Amer) > 60 Est GFR (Non-Af Amer) > 60 Glucose 77 Calcium 8.7 Blood Type B POSITIVE Antibody Screen NEGATIVE Impressions: Fluoroscopy 12/16/17 00:00 IMPRESSION: IMAGE(S) OBTAINED DURING PROCEDURE. Hip X-Ray 08/31/17 00:00 IMPRESSION: IMAGE(S) OBTAINED DURING PROCEDURE. Status: Imported from PACS Assessment & Plan - Diagnosis (1) Dislocation of internal left hip prosthesis, initial encounter Is this a current diagnosis for this admission?: Yes Plan: Patient with a stable reduction at this point. The abduction pillow which had been applied postoperatively has been discontinued for unknown reasons. Patient will be mobilized with physical therapy and weightbearing as tolerated basis. Anticipate the need for snf facility placement. (2) Anemia Qualifiers: Anemia type: unspecified type Qualified Code(s): D64.9 - Anemia, unspecified Is this a current diagnosis for this admission?: Yes Plan: Patient with anemia of multiple etiologies including postoperative anemia as well as potentially malnutrition. Patient received 2 units of packed red blood cells yesterday. - Time Time Spent with patient: 15-24 minutes Anticipated discharge: SNF Within: within 48 hours
[2017-09-01] MEDS: POTASSIUM CHLORIDE 10 MEQ TABLET.SA PO SCH (10:12)
[2017-09-01] MEDS: ASPIRIN 81 MG TABLET, ENT COATED PO SCH (10:13)
[2017-09-01] MEDS: LISINOPRIL 10 MG TABLET PO SCH (10:13)
[2017-09-01] MEDS: TIOTROPIUM BROMIDE DPI 5 CAP/KIT (18 MCG/CAP) IH SCH (10:13)
[2017-09-01] MEDS: AZITHROMYCIN 250 MG TABLET PO SCH (10:13)
[2017-09-01] MEDS: MULTIVITAMIN TABLET PO SCH (10:14)
[2017-09-01] MEDS: LANSOPRAZOLE 30 MG TAB.RAP.DR PO SCH ×2 (10:14→22:04)
[2017-09-01] MEDS: PREDNISONE 5 MG TABLET PO SCH (10:14)
[2017-09-01] MEDS: SENNOSIDES/DOCUSATE 8.6-50 MG 1 EACH TABLET PO SCH ×2 (10:14→17:32)
[2017-09-01] MEDS: GUAIFENESIN 600 MG TABLET.SA PO SCH ×2 (10:15→22:05)
[2017-09-01] MEDS: PAROXETINE HCL 20 MG TABLET PO SCH (10:15)
[2017-09-01] MEDS: FLUTICASONE/SALMETEROL DISKUS 250-50 MCG/DOSE IH SCH ×2 (10:15→22:02)
[2017-09-01] MEDS: RINGERS SOLUTION,LACTATED 1,000 ML IV PRN (15:18)
[2017-09-01] MEDS: ACETAMINOPHEN 325 MG TABLET PO PRN (18:11)
--- NOTE | 2017-09-01 18:49 | PDOC PROGRESS REPORT ---
Subjective Progress Note for:: 09/01/17 Subjective:: This is a follow-up visit for management of hypertension. Patient still complains of lower extremity pain but states that it was relieved with the pain medication she received. Lower extremity pain is secondary to her skin tears and not her hip which currently does not bother her. Reason For Visit: LEFT DISLOCATED HIP HEMIARTHROPLASTY Physical Exam Vital Signs: Temp Pulse Resp BP Pulse Ox 97.8 F 93 18 138/49 H 95 09/01/17 15:09 09/01/17 15:09 09/01/17 15:09 09/01/17 15:09 09/01/17 15:09 Intake & Output 08/31/17 09/01/17 09/02/17 06:59 06:59 06:59 Intake Total 1706 7566 1133 Output Total 1700 3625 Balance 6 3941 1133 Weight 39.973 kg 39.4 kg GENERAL: This is a well-developed under nourished appearing elderly frail white female resting in bed currently in no acute distress. HEENT: Normocephalic, atraumatic. Decreased vocal projection. No scleral icterus. HEART: Regular rate and rhythm. No murmurs, rubs or gallops. LUNGS: Clear to auscultation anteriorly bilaterally with equal rise and fall of the chest. ABDOMEN: Soft, nontender, nondistended with normoactive bowel sounds EXTREMETIES: No clubbing, cyanosis or edema. 2+ peripheral pulses bilaterally. Hip wound is clean dry and intact. Multiple skin tears on the arms and legs. NEURO: Awake, alert and oriented 3. Cranial nerves II through XII are grossly intact. Results Laboratory Results: 09/01/17 04:51 09/01/17 04:51 08/31/17 09/01/17 09/01/17 12:50 04:51 04:51 WBC 11.8 H RBC 3.39 L Hgb 10.3 L D Hct 30.1 L MCV 89 MCH 30.4 MCHC 34.2 RDW 15.5 H Plt Count 161 Sodium 138.5 Potassium 4.5 Chloride 102 Carbon Dioxide 32 H Anion Gap 5 BUN 14 Creatinine 0.45 L Est GFR ( Amer) > 60 Est GFR (Non-Af Amer) > 60 Glucose 77 Calcium 8.7 Blood Type B POSITIVE Antibody Screen NEGATIVE Impressions: Fluoroscopy 08/31/17 00:00 IMPRESSION: IMAGE(S) OBTAINED DURING PROCEDURE. Hip X-Ray 08/31/17 00:00 IMPRESSION: IMAGE(S) OBTAINED DURING PROCEDURE. Assessment & Plan - Diagnosis (1) Fracture of femoral neck, left Qualifiers: Encounter type: initial encounter Fracture type: closed Qualified Code(s) : S72.002A - Fracture of unspecified part of neck of left femur, initial encounter for closed fracture Plan: As per primary service (2) COPD (chronic obstructive pulmonary disease) Qualifiers: COPD type: unspecified COPD Qualified Code(s): J44.9 - Chronic obstructive pulmonary disease, unspecified Is this a current diagnosis for this admission?: Yes Plan: No acute exacerbation. continue prednisone, inhalers and nebs (3) Hypertension Qualifiers: Hypertension type: essential hypertension Qualified Code(s): I10 - Essential (primary) hypertension Is this a current diagnosis for this admission?: Yes Plan: Continue home meds. Blood pressure is quite reasonable. - Time Time Spent with patient: Less than 15 minutes
[2017-09-01] MEDS: TRAMADOL HCL 50 MG TABLET PO PRN (19:23)
[2017-09-01] MEDS: ONDANSETRON HCL INJ/PF 4 MG/2 ML SDV IV PRN (19:24)
[2017-09-02] MEDS: OXYCODONE-ACETAMINOPHEN 5-325 MG TABLET PO PRN (02:29)
[2017-09-02 05:56] LABS: HEMATOCRIT 28.2 % (36.0-47.0); HEMOGLOBIN 9.8 g/dL (12.0-15.5); HGB HCT DIFFERENCE 1.2; MEAN CORPUSCULAR HEMOGLOBIN 30.4 pg (27.0-33.4); MEAN CORPUSCULAR HGB CONC 34.8 g/dL (32.0-36.0); MEAN CORPUSCULAR VOLUME 88 fl (80-97); RED BLOOD COUNT 3.23 10^6/uL (3.72-5.28); RED CELL DISTRIBUTION WIDTH 15.1 % (11.5-14.0); WHITE BLOOD COUNT 10.7 10^3/uL (4.0-10.5)
[2017-09-02] MEDS ORDERED: ONDANSETRON HCL INJ/PF 4 MG/2 ML SDV IV PRN (09:00)
[2017-09-02] MEDS: POTASSIUM CHLORIDE 10 MEQ TABLET.SA PO SCH (09:44)
[2017-09-02] MEDS: PREDNISONE 5 MG TABLET PO SCH (09:54)
[2017-09-02] MEDS: GUAIFENESIN 600 MG TABLET.SA PO SCH ×2 (09:54→21:16)
[2017-09-02] MEDS: AZITHROMYCIN 250 MG TABLET PO SCH (09:54)
[2017-09-02] MEDS: SENNOSIDES/DOCUSATE 8.6-50 MG 1 EACH TABLET PO SCH ×2 (09:54→17:38)
[2017-09-02] MEDS: LISINOPRIL 10 MG TABLET PO SCH (09:55)
[2017-09-02] MEDS: MULTIVITAMIN TABLET PO SCH (09:55)
[2017-09-02] MEDS: LANSOPRAZOLE 30 MG TAB.RAP.DR PO SCH ×2 (09:55→21:16)
[2017-09-02] MEDS: PAROXETINE HCL 20 MG TABLET PO SCH (09:55)
[2017-09-02] MEDS: ASPIRIN 81 MG TABLET, ENT COATED PO SCH (09:55)
[2017-09-02] MEDS: FLUTICASONE/SALMETEROL DISKUS 250-50 MCG/DOSE IH SCH ×2 (09:55→21:17)
[2017-09-02] MEDS: TIOTROPIUM BROMIDE DPI 5 CAP/KIT (18 MCG/CAP) IH SCH (10:01)
[2017-09-02] MEDS: RINGERS SOLUTION,LACTATED 1,000 ML IV PRN (12:07)
[2017-09-02] MEDS: ACETAMINOPHEN 325 MG TABLET PO PRN (12:14)
[2017-09-02] MEDS: TRAMADOL HCL 50 MG TABLET PO PRN (13:10)
--- NOTE | 2017-09-02 15:11 | PDOC PROGRESS REPORT ---
Subjective Progress Note for:: 09/02/17 Subjective:: This is a follow-up visit for management of hypertension. Patient still complains of lower extremity pain but states that it was relieved with the pain medication she received. She also complains of headache today and also sore throat from her intubation. Lower extremity pain is secondary to her skin tears and not her hip which currently does not bother her. Reason For Visit: LEFT DISLOCATED HIP HEMIARTHROPLASTY Physical Exam Vital Signs: Temp Pulse Resp BP Pulse Ox 97.6 F 80 16 126/59 H 92 09/02/17 11:20 09/02/17 11:20 09/02/17 11:20 09/02/17 11:20 09/02/17 11:20 Intake & Output 09/01/17 09/02/17 09/03/17 06:59 06:59 06:59 Intake Total 7566 3362 Output Total 3625 Balance 3941 3362 Weight 39.4 kg GENERAL: This is a well-developed under nourished appearing elderly frail white female resting in bed currently in no acute distress. HEENT: Decreased vocal projection. HEART: Regular rate and rhythm. No murmurs, rubs or gallops. LUNGS: Bibasilar crackles. Bilaterally with equal rise and fall of the chest. ABDOMEN: Soft, nontender, nondistended with normoactive bowel sounds EXTREMETIES: No clubbing, cyanosis or edema. 2+ peripheral pulses bilaterally. Hip wound is clean dry and intact. Multiple skin tears on the arms and legs. NEURO: Awake, alert and oriented 3. Cranial nerves II through XII are grossly intact. Results Laboratory Results: 09/02/17 04:36 09/01/17 04:51 09/02/17 04:36 WBC 10.7 H RBC 3.23 L Hgb 9.8 L Hct 28.2 L MCV 88 MCH 30.4 MCHC 34.8 RDW 15.1 H Plt Count 165 Impressions: Fluoroscopy 08/31/17 00:00 IMPRESSION: IMAGE(S) OBTAINED DURING PROCEDURE. Hip X-Ray 08/31/17 00:00 IMPRESSION: IMAGE(S) OBTAINED DURING PROCEDURE. Assessment & Plan - Diagnosis (1) Fracture of femoral neck, left Qualifiers: Encounter type: initial encounter Fracture type: closed Qualified Code(s) : S72.002A - Fracture of unspecified part of neck of left femur, initial encounter for closed fracture Plan: As per primary service (2) COPD (chronic obstructive pulmonary disease) Qualifiers: COPD type: unspecified COPD Qualified Code(s): J44.9 - Chronic obstructive pulmonary disease, unspecified Is this a current diagnosis for this admission?: Yes Plan: No acute exacerbation. continue prednisone, inhalers and nebs. (3) Hypertension Qualifiers: Hypertension type: essential hypertension Qualified Code(s): I10 - Essential (primary) hypertension Is this a current diagnosis for this admission?: Yes Plan: Continue home meds. Blood pressure is quite reasonable. (4) Abnormal finding of lung Is this a current diagnosis for this admission?: Yes Plan: Patient has crackles on the lung she is currently receiving IV fluids. She is eating and drinking well. She does not have a documented history of congestive heart failure but I do have concerns of this. On her last admission she had to undergo diuresis for volume overload at that time due to transfusion. DC IV fluids now and continue to monitor. - Time Time Spent with patient: 15-24 minutes - Inpatient Certification Medical Necessity: Need Close Monitoring Due to Risk of Patient Decompensation
[2017-09-03] MEDS: TRAMADOL HCL 50 MG TABLET PO PRN ×2 (00:25→12:47)
[2017-09-03 05:46] LABS: ABSOLUTE EOSINOPHILS # (AUTO) 0.2 10^3/uL (0.0-0.6); ABSOLUTE LYMPHOCYTES (AUTO) 1.1 10^3/uL (0.5-4.7); ABSOLUTE MONOCYTES (AUTO) 0.8 10^3/uL (0.1-1.4); ABSOLUTE NEUT (AUTO) 7.6 10^3/uL (1.7-8.2); BASOPHILS % (AUTO) 0.3 % (0-2); EOSINOPHILS % (AUTO) 2.4 % (0-6); HEMATOCRIT 28.6 % (36.0-47.0); HEMOGLOBIN 9.8 g/dL (12.0-15.5); HGB HCT DIFFERENCE 0.8; LYMPHOCYTES % (AUTO) 11.2 % (13-45); MEAN CORPUSCULAR HEMOGLOBIN 30.5 pg (27.0-33.4); MEAN CORPUSCULAR HGB CONC 34.3 g/dL (32.0-36.0); MEAN CORPUSCULAR VOLUME 89 fl (80-97); RED BLOOD COUNT 3.22 10^6/uL (3.72-5.28); RED CELL DISTRIBUTION WIDTH 15.3 % (11.5-14.0); SEGMENTED NEUTROPHILS % (AUTO) 78.1 % (42-78); WHITE BLOOD COUNT 9.7 10^3/uL (4.0-10.5)
[2017-09-03 06:05] LABS: ANION GAP 5 (5-19); BLOOD UREA NITROGEN 12 mg/dL (7-20); CALCIUM 8.4 mg/dL (8.4-10.2); CARBON DIOXIDE 34 mmol/L (22-30); CHLORIDE 98 mmol/L (98-107); CREATININE RESULT 0.44 mg/dL (0.52-1.25); GLUCOSE 75 mg/dL (75-110); MAGNESIUM 1.3 mg/dL (1.6-2.3); POTASSIUM 4.3 mmol/L (3.6-5.0); SODIUM 136.5 mmol/L (137-145)
--- NOTE | 2017-09-03 06:38 | PDOC PROGRESS REPORT ---
Subjective Progress Note for:: 09/03/17 Subjective:: 87-year-old white female 3 days status post open reduction of left hip dislocation. Patient lying recumbent in hospital bed this morning awake. Patient notes she is comfortable and desires to be discharged from the hospital. Patient was informed that she needs to make more progress with physical therapy before that can be obtained. Reason For Visit: LEFT DISLOCATED HIP HEMIARTHROPLASTY Physical Exam Vital Signs: Temp Pulse Resp BP Pulse Ox 36.9 C 80 16 131/67 H 97 09/03/17 03:41 09/03/17 03:41 09/03/17 03:41 09/03/17 03:41 09/03/17 03:41 Intake & Output 09/01/17 09/02/17 09/03/17 06:59 06:59 06:59 Intake Total 7566 3362 1474 Output Total 3625 1 Balance 3941 3362 1473 Weight 39.4 kg General appearance: PRESENT: no acute distress, well-developed, well-nourished Head exam: PRESENT: atraumatic, normocephalic Respiratory exam: PRESENT: unlabored Pulses: PRESENT: normal dorsalis pedis pul, +2 pedal pulses bilateral Vascular exam: PRESENT: normal capillary refill Additional comments: Patient lying recumbent in hospital bed with left lower extremity in full extension. Patient's OpSite dressing is clean dry and intact. This dressing is left in place. She is nontender to palpation. She has brisk capillary refill to toes on bilateral lower extremities. There is minimal pedal edema. Her sensory motor functions are intact and her distal neurovascular exam is intact. Musculoskeletal exam: PRESENT: ambulatory Additional comments: Patient makes slow progress with physical therapy only ambulating 5 feet independently. Patient was informed that in order to be ready for discharge she must be able to ambulate to and from the restroom as well as transfer from bed to chair at the bedside. Patient voiced understanding. She will continue to work with physical therapy to improve strength range of motion of left lower extremity. Neurological exam: PRESENT: alert, awake, oriented to person, oriented to place , oriented to time, oriented to situation, CN II-XII grossly intact. ABSENT: motor sensory deficit Psychiatric exam: PRESENT: appropriate affect, normal mood. ABSENT: homicidal ideation, suicidal ideation Skin exam: PRESENT: dry, intact, warm. ABSENT: cyanosis, rash Results Laboratory Results: 09/03/17 04:49 09/03/17 04:49 09/03/17 09/03/17 04:49 04:49 WBC 9.7 RBC 3.22 L Hgb 9.8 L Hct 28.6 L MCV 89 MCH 30.5 MCHC 34.3 RDW 15.3 H Plt Count 190 Seg Neutrophils % 78.1 H Lymphocytes % 11.2 L Monocytes % 8.0 Eosinophils % 2.4 Basophils % 0.3 Absolute Neutrophils 7.6 Absolute Lymphocytes 1.1 Absolute Monocytes 0.8 Absolute Eosinophils 0.2 Absolute Basophils 0.0 Sodium 136.5 L Potassium 4.3 Chloride 98 Carbon Dioxide 34 H Anion Gap 5 BUN 12 Creatinine 0.44 L Est GFR ( Amer) > 60 Est GFR (Non-Af Amer) > 60 Glucose 75 Calcium 8.4 Magnesium 1.3 L Impressions: Fluoroscopy 08/31/17 00:00 IMPRESSION: IMAGE(S) OBTAINED DURING PROCEDURE. Hip X-Ray 08/31/17 00:00 IMPRESSION: IMAGE(S) OBTAINED DURING PROCEDURE. Assessment & Plan - Diagnosis (1) Dislocation of internal left hip prosthesis, initial encounter Is this a current diagnosis for this admission?: Yes - Plan Summary Plan Summary: 87-year-old white female 3 days status post open wound reduction of left hip dislocation. Patient make slow progress with physical therapy only ambulating 5 feet independently. It was discussed that in order for patient to be prepared for discharge she must ambulate to and from the toilet as well as be able to transfer from bed to chair at the bedside. She voiced understanding of this and desires to be discharged by [place]. We will hopefully plan for discharge later this week pending progress with physical therapy.
[2017-09-03] MEDS: OXYCODONE-ACETAMINOPHEN 5-325 MG TABLET PO PRN (08:29)
[2017-09-03] MEDS: LANSOPRAZOLE 30 MG TAB.RAP.DR PO SCH ×2 (10:12→21:57)
[2017-09-03] MEDS: PAROXETINE HCL 20 MG TABLET PO SCH (10:13)
[2017-09-03] MEDS: MULTIVITAMIN TABLET PO SCH (10:13)
[2017-09-03] MEDS: PREDNISONE 5 MG TABLET PO SCH (10:13)
[2017-09-03] MEDS: ASPIRIN 81 MG TABLET, ENT COATED PO SCH (10:13)
[2017-09-03] MEDS: SENNOSIDES/DOCUSATE 8.6-50 MG 1 EACH TABLET PO SCH ×2 (10:13→17:02)
[2017-09-03] MEDS: POTASSIUM CHLORIDE 10 MEQ TABLET.SA PO SCH (10:13)
[2017-09-03] MEDS: LISINOPRIL 10 MG TABLET PO SCH (10:14)
[2017-09-03] MEDS: GUAIFENESIN 600 MG TABLET.SA PO SCH ×2 (10:14→21:57)
[2017-09-03] MEDS: FLUTICASONE/SALMETEROL DISKUS 250-50 MCG/DOSE IH SCH ×2 (10:14→21:57)
[2017-09-03] MEDS: TIOTROPIUM BROMIDE DPI 5 CAP/KIT (18 MCG/CAP) IH SCH (10:15)
[2017-09-03] MEDS: MAGNESIUM SULFATE/D5W 1 GM/100 ML RTUPB IV SCH ×2 (12:48→14:16)
--- NOTE | 2017-09-03 12:59 | PDOC PROGRESS REPORT ---
Subjective Progress Note for:: 09/03/17 Subjective:: This is a follow-up visit for management of hypertension. The patient states of pain all over. It is related to her legs again. She also states that sometimes she tries finally chopped food to get a break from cure. She says that she was doing this with the speech therapist in the nursing facility. Right now she just does not find the. Food very palatable. Reason For Visit: LEFT DISLOCATED HIP HEMIARTHROPLASTY Physical Exam Vital Signs: Temp Pulse Resp BP Pulse Ox 98.3 F 82 16 143/65 H 98 09/03/17 07:15 09/03/17 07:15 09/03/17 07:15 09/03/17 07:15 09/03/17 07:15 Intake & Output 09/02/17 09/03/17 09/04/17 06:59 06:59 06:59 Intake Total 3362 1714 Output Total 1 Balance 3362 1713 GENERAL: This is a well-developed under nourished appearing elderly frail white female resting in bed currently in no acute distress. HEENT: Decreased vocal projection. HEART: Regular rate and rhythm. No murmurs, rubs or gallops. LUNGS: Clear anteriorly bilaterally with equal rise and fall of the chest. ABDOMEN: Soft, nontender, nondistended with normoactive bowel sounds EXTREMETIES: No clubbing, cyanosis or edema. 2+ peripheral pulses bilaterally. Hip wound is clean dry and intact. Multiple skin tears on the arms and legs. NEURO: Awake, alert and oriented 3. Cranial nerves II through XII are grossly intact. Results Laboratory Results: 09/03/17 04:49 09/03/17 04:49 09/03/17 09/03/17 04:49 04:49 WBC 9.7 RBC 3.22 L Hgb 9.8 L Hct 28.6 L MCV 89 MCH 30.5 MCHC 34.3 RDW 15.3 H Plt Count 190 Seg Neutrophils % 78.1 H Lymphocytes % 11.2 L Monocytes % 8.0 Eosinophils % 2.4 Basophils % 0.3 Absolute Neutrophils 7.6 Absolute Lymphocytes 1.1 Absolute Monocytes 0.8 Absolute Eosinophils 0.2 Absolute Basophils 0.0 Sodium 136.5 L Potassium 4.3 Chloride 98 Carbon Dioxide 34 H Anion Gap 5 BUN 12 Creatinine 0.44 L Est GFR ( Amer) > 60 Est GFR (Non-Af Amer) > 60 Glucose 75 Calcium 8.4 Magnesium 1.3 L Impressions: Fluoroscopy 08/31/17 00:00 IMPRESSION: IMAGE(S) OBTAINED DURING PROCEDURE. Hip X-Ray 08/31/17 00:00 IMPRESSION: IMAGE(S) OBTAINED DURING PROCEDURE. Assessment & Plan - Diagnosis (1) Fracture of femoral neck, left Qualifiers: Encounter type: initial encounter Fracture type: closed Qualified Code(s) : S72.002A - Fracture of unspecified part of neck of left femur, initial encounter for closed fracture Plan: As per primary service (2) COPD (chronic obstructive pulmonary disease) Qualifiers: COPD type: unspecified COPD Qualified Code(s): J44.9 - Chronic obstructive pulmonary disease, unspecified Is this a current diagnosis for this admission?: Yes Plan: No acute exacerbation. continue prednisone, inhalers and nebs. (3) Hypertension Qualifiers: Hypertension type: essential hypertension Qualified Code(s): I10 - Essential (primary) hypertension Is this a current diagnosis for this admission?: Yes Plan: Continue home meds. Blood pressure is quite reasonable. (4) Abnormal finding of lung Is this a current diagnosis for this admission?: Yes Plan: No crackles heard today. Continue to monitor. (5) Dysphasia Is this a current diagnosis for this admission?: Yes Plan: Patient had left vocal cord paralysis. She is usually on pured foods sometimes finely chopped food. At the moment she does not find. Palatable we can try a ground meats. However, of caution the patient that if she begins to choke she needs to stop immediately. She agrees to do so. - Time Time Spent with patient: 15-24 minutes
[2017-09-03] MEDS: ACETAMINOPHEN 325 MG TABLET PO PRN (13:24)
[2017-09-04] MEDS: TRAMADOL HCL 50 MG TABLET PO PRN ×2 (01:40→09:24)
[2017-09-04] MEDS: OXYCODONE-ACETAMINOPHEN 5-325 MG TABLET PO PRN ×2 (05:43→11:22)
--- NOTE | 2017-09-04 07:02 | PDOC PROGRESS REPORT ---
Subjective Progress Note for:: 09/04/17 Subjective:: 87-year-old white female 4 days status post open reduction of left hemiarthroplasty dislocation. Patient lying recumbent in hospital bed this morning awake and alert. Patient is questioning whether she can go home today and is also concerned with the bruising and tearing of skin on her left lower extremity. Patient was informed based on progressive physical therapy being discharged today was not a likely outcome. Reason For Visit: LEFT DISLOCATED HIP HEMIARTHROPLASTY Physical Exam Vital Signs: Temp Pulse Resp BP Pulse Ox 36.8 C 87 20 140/64 H 95 09/04/17 00:35 09/04/17 00:35 09/04/17 00:35 09/04/17 00:35 09/04/17 00:47 Intake & Output 09/02/17 09/03/17 09/04/17 06:59 06:59 06:59 Intake Total 3362 1714 798 Output Total 1 Balance 3362 1713 798 General appearance: PRESENT: no acute distress, well-developed, well-nourished Head exam: PRESENT: atraumatic, normocephalic Respiratory exam: PRESENT: unlabored Pulses: PRESENT: normal dorsalis pedis pul, +2 pedal pulses bilateral Vascular exam: PRESENT: normal capillary refill Additional comments: Patient lying recumbent in hospital bed with left lower extremity in full extension. Patient is concerned particularly for the bruising and skin tears on her left lower extremity. On exam these bruises and skin tears are appreciated with a clear Tegaderm-like dressing over it. Patient was informed that a new dressing will be placed with a Sof-Rol and some Coban and to facilitate a more comfortable dressing. Otherwise patient has brisk capillary refill to toes on bilateral lower extremities, there is minimal pedal edema her sensory motor functions are intact and her distal neurovascular exam is intact. Musculoskeletal exam: PRESENT: ambulatory Additional comments: Although patient is ambulatory she makes slow progress with physical therapy and is only ambulated a max of 10 feet. In order to be eligible for discharge it is of our opinion that she should be able to ambulate from her bed to the restroom and toilet as well as be able to transfer herself independently from bed to chair at the bedside. She has not yet accomplished his goals therefore it is unlikely that she will be discharged today. She will continue to work with physical therapy to improve strength and range of motion and further ambulation of left lower extremity. Neurological exam: PRESENT: alert, awake, oriented to person, oriented to place , oriented to time, oriented to situation, CN II-XII grossly intact. ABSENT: motor sensory deficit Psychiatric exam: PRESENT: appropriate affect, normal mood. ABSENT: homicidal ideation, suicidal ideation Skin exam: PRESENT: dry, intact, warm. ABSENT: cyanosis, rash Additional comments: As noted above on left lower extremity there are superficial bruises and skin tears that up and dressed will be redressed this morning. Results Laboratory Results: 09/03/17 04:49 09/03/17 04:49 Impressions: Fluoroscopy 08/31/17 00:00 IMPRESSION: IMAGE(S) OBTAINED DURING PROCEDURE. Hip X-Ray 08/31/17 00:00 IMPRESSION: IMAGE(S) OBTAINED DURING PROCEDURE. Assessment & Plan - Diagnosis (1) Dislocation of internal left hip prosthesis, initial encounter Is this a current diagnosis for this admission?: Yes - Plan Summary Plan Summary: 87-year-old white female 4 days status post open reduction of hemiarthroplasty dislocation of the left hip. Patient makes slow progress with physical therapy only ambulating a maximum of 10 feet independently. In order to be eligible for discharge it is of our opinion that she should ambulate to and from the restroom to her hospital bed and be able to independently transfer from her bed to a chair at the bedside. When she has accomplished his goals she will be eligible for discharge. We believe that patient will be comfortable being discharged to her home. Otherwise patient is comfortable. Her left lower extremity dressing is clean dry and intact. Along her miles she has superficial abrasions and bruising in this dressing will be changed this morning. We will hopefully plan for discharge later this week.
[2017-09-04] MEDS: PREDNISONE 5 MG TABLET PO SCH (10:49)
[2017-09-04] MEDS: LISINOPRIL 10 MG TABLET PO SCH (10:50)
[2017-09-04] MEDS: SENNOSIDES/DOCUSATE 8.6-50 MG 1 EACH TABLET PO SCH ×2 (10:51→17:54)
[2017-09-04] MEDS: ASPIRIN 81 MG TABLET, ENT COATED PO SCH (10:51)
[2017-09-04] MEDS: POTASSIUM CHLORIDE 10 MEQ TABLET.SA PO SCH (10:51)
[2017-09-04] MEDS: GUAIFENESIN 600 MG TABLET.SA PO SCH ×2 (10:52→23:31)
[2017-09-04] MEDS: LANSOPRAZOLE 30 MG TAB.RAP.DR PO SCH ×2 (10:52→23:34)
[2017-09-04] MEDS: PAROXETINE HCL 20 MG TABLET PO SCH (10:52)
[2017-09-04] MEDS: MULTIVITAMIN TABLET PO SCH (10:53)
[2017-09-04] MEDS: TIOTROPIUM BROMIDE DPI 5 CAP/KIT (18 MCG/CAP) IH SCH (10:53)
[2017-09-04] MEDS: FLUTICASONE/SALMETEROL DISKUS 250-50 MCG/DOSE IH SCH ×2 (10:53→23:35)
[2017-09-04] MEDS: BISACODYL 5 MG TABEC PO SCH (11:21)
--- NOTE | 2017-09-04 13:56 | PDOC PROGRESS REPORT ---
Subjective Progress Note for:: 09/04/17 Subjective:: follow up visit for medical management of hypertension. she reports persistent pain in her legs related to the skin tears, constant burning pain without alleviating or exacerbating factors and no other asct'd symptoms. she denies fevers/chills, n/v/d, n/t, MCCLAIN, cough with congestion, dyspnea. ROS: all systems reviewed, remaining systems negative, see above. Reason For Visit: LEFT DISLOCATED HIP HEMIARTHROPLASTY Physical Exam Vital Signs: Temp Pulse Resp BP Pulse Ox 97.4 F 102 H 22 H 122/55 L 99 09/04/17 11:35 09/04/17 11:35 09/04/17 11:35 09/04/17 11:35 09/04/17 11:35 Intake & Output 09/03/17 09/04/17 09/05/17 06:59 06:59 06:59 Intake Total 1714 1018 Output Total 1 Balance 1713 1018 General appearance: PRESENT: no acute distress, thin, well-developed Head exam: PRESENT: atraumatic, normocephalic Eye exam: PRESENT: EOMI. ABSENT: scleral icterus Neck exam: PRESENT: full ROM. ABSENT: tracheal deviation Respiratory exam: PRESENT: crackles - bilat bases. ABSENT: accessory muscle use Cardiovascular exam: PRESENT: RRR. ABSENT: rubs, systolic murmur GI/Abdominal exam: PRESENT: normal bowel sounds, soft. ABSENT: tenderness Musculoskeletal exam: PRESENT: full ROM Neurological exam: PRESENT: alert, awake, oriented to person, oriented to place , oriented to situation Psychiatric exam: PRESENT: appropriate affect, normal mood Skin exam: PRESENT: skin tears - bilat Results Laboratory Results: 09/03/17 04:49 09/03/17 04:49 08/31/17 09:00 Hip - Left Gram Stain - Final Assessment & Plan - Diagnosis (1) Dislocation of internal left hip prosthesis, initial encounter Is this a current diagnosis for this admission?: Yes Plan: s/p reduction; continue managment per ortho. awaiting her ability to demonstrate functional capacity for normal ADLs before release from hospital. (2) COPD (chronic obstructive pulmonary disease) Qualifiers: COPD type: unspecified COPD Qualified Code(s): J44.9 - Chronic obstructive pulmonary disease, unspecified Is this a current diagnosis for this admission?: Yes Plan: no evidence for acute exac; wean o2 as karan; prn nebs. (3) Hypertension Qualifiers: Hypertension type: essential hypertension Qualified Code(s): I10 - Essential (primary) hypertension Is this a current diagnosis for this admission?: Yes Plan: well controlled; continue current meds (4) Constipation Qualifiers: Constipation type: unspecified constipation type Qualified Code(s): K59.00 - Constipation, unspecified Is this a current diagnosis for this admission?: Yes Plan: increase her bowel regimen and monitor for response; only one BM documented since admit (5) Skin tear of right lower leg without complication Is this a current diagnosis for this admission?: Yes Plan: continue topical care (6) Skin tear of left lower leg without complication Is this a current diagnosis for this admission?: Yes Plan: continue topical care - Time Time Spent with patient: 15-24 minutes
--- NOTE | 2017-09-05 06:44 | PDOC PROGRESS REPORT ---
Subjective Progress Note for:: 09/05/17 Reason For Visit: LEFT DISLOCATED HIP HEMIARTHROPLASTY 87-year-old white female status post an open reduction of dislocated left proximal femoral hemiarthroplasty on the . Patient in good spirits this morning. Physical Exam Vital Signs: Temp Pulse Resp BP Pulse Ox 36.7 C 92 16 128/59 H 100 09/04/17 23:38 09/04/17 23:38 09/04/17 23:38 09/04/17 23:38 09/05/17 00:29 Intake & Output 09/03/17 09/04/17 09/05/17 06:59 06:59 06:59 Intake Total 1714 1018 940 Output Total 1 Balance 1713 1018 940 General appearance: PRESENT: no acute distress Head exam: PRESENT: normocephalic Respiratory exam: PRESENT: unlabored Cardiovascular exam: PRESENT: RRR Pulses: PRESENT: +1 pedal pulses bilateral Vascular exam: PRESENT: normal capillary refill GI/Abdominal exam: PRESENT: soft Rectal exam: PRESENT: deferred Extremities exam: PRESENT: other - Left hip dressing clean dry and intact. Neurological exam: PRESENT: alert, awake, oriented to person, oriented to place , oriented to time, oriented to situation. ABSENT: motor sensory deficit Psychiatric exam: PRESENT: appropriate affect, normal mood. ABSENT: homicidal ideation, suicidal ideation Skin exam: PRESENT: dry, intact, warm. ABSENT: cyanosis, rash Results Laboratory Results: 09/03/17 04:49 09/03/17 04:49 08/31/17 09:00 Hip - Left Gram Stain - Final Impressions: Fluoroscopy 08/31/17 00:00 IMPRESSION: IMAGE(S) OBTAINED DURING PROCEDURE. Hip X-Ray 08/31/17 00:00 IMPRESSION: IMAGE(S) OBTAINED DURING PROCEDURE. Status: Imported from PACS Assessment & Plan - Diagnosis (1) Dislocation of internal left hip prosthesis, initial encounter Is this a current diagnosis for this admission?: Yes Plan: Patient making progress with physical therapy. She ambulated 20 feet yesterday. Intraoperative cultures are growing corynebacteria. Clinically the patient is not showing any signs of infection and dressing remains dry. I am left with the impression at this positive culture is in fact a contaminant. (2) Anemia Qualifiers: Anemia type: unspecified type Qualified Code(s): D64.9 - Anemia, unspecified Is this a current diagnosis for this admission?: Yes Plan: Stable - Time Time Spent with patient: 15-24 minutes Anticipated discharge: Home with Homehealth Within: within 24 hours - Patient is anxious to be discharged home. She is making slow steady progress with physical therapy. If her functional capacity permits, we potentially can discharge her home tomorrow with home health nursing. She certainly has a very supportive family.
[2017-09-05] MEDS: TRAMADOL HCL 50 MG TABLET PO PRN (08:25)
[2017-09-05] MEDS: SENNOSIDES/DOCUSATE 8.6-50 MG 1 EACH TABLET PO SCH ×2 (12:02→18:36)
[2017-09-05] MEDS: BISACODYL 5 MG TABEC PO SCH (12:02)
[2017-09-05] MEDS: LISINOPRIL 10 MG TABLET PO SCH (12:03)
[2017-09-05] MEDS: LANSOPRAZOLE 30 MG TAB.RAP.DR PO SCH ×2 (12:04→21:23)
[2017-09-05] MEDS: ASPIRIN 81 MG TABLET, ENT COATED PO SCH (12:04)
[2017-09-05] MEDS: PAROXETINE HCL 20 MG TABLET PO SCH (12:05)
[2017-09-05] MEDS: MULTIVITAMIN TABLET PO SCH (12:05)
[2017-09-05] MEDS: GUAIFENESIN 600 MG TABLET.SA PO SCH ×2 (12:05→21:23)
[2017-09-05] MEDS: POTASSIUM CHLORIDE 10 MEQ TABLET.SA PO SCH (12:06)
[2017-09-05] MEDS: PREDNISONE 5 MG TABLET PO SCH (12:07)
[2017-09-05] MEDS: FLUTICASONE/SALMETEROL DISKUS 250-50 MCG/DOSE IH SCH ×2 (12:08→21:23)
[2017-09-05] MEDS ORDERED: CEFAZOLIN 2 GM/D5W RTU 2 GM/50 ML RTUPB IV SCH (12:30)
[2017-09-05] MEDS: OXYCODONE-ACETAMINOPHEN 5-325 MG TABLET PO PRN ×2 (13:56→20:48)
[2017-09-05] MEDS: TIOTROPIUM BROMIDE DPI 5 CAP/KIT (18 MCG/CAP) IH SCH (14:20)
--- NOTE | 2017-09-05 15:54 | PDOC PROGRESS REPORT ---
Subjective Progress Note for:: 09/05/17 Subjective:: follow up visit for medical management of hypertension. she reports pain in her legs improved with wraps. She denies fevers/chills, n/v/d, n/t, MCCLAIN, cough with congestion, dyspnea. ROS: all systems reviewed, remaining systems negative, see above. Reason For Visit: LEFT DISLOCATED HIP HEMIARTHROPLASTY Physical Exam Vital Signs: Temp Pulse Resp BP Pulse Ox 98.3 F 105 H 17 115/52 L 100 09/05/17 11:31 09/05/17 11:31 09/05/17 11:31 09/05/17 11:31 09/05/17 11:31 Intake & Output 09/04/17 09/05/17 09/06/17 06:59 06:59 06:59 Intake Total 1018 940 Balance 1018 940 General appearance: PRESENT: no acute distress, thin, well-developed Head exam: PRESENT: atraumatic, normocephalic Eye exam: PRESENT: EOMI. ABSENT: scleral icterus Neck exam: PRESENT: full ROM. ABSENT: tracheal deviation Respiratory exam: PRESENT: CTAB ABSENT: accessory muscle use Cardiovascular exam: PRESENT: RRR. ABSENT: rubs, systolic murmur GI/Abdominal exam: PRESENT: normal bowel sounds, soft. ABSENT: tenderness Musculoskeletal exam: PRESENT: full ROM Neurological exam: PRESENT: alert, awake, oriented to person, oriented to place , oriented to situation Psychiatric exam: PRESENT: appropriate affect, normal mood Skin exam: PRESENT: skin tears - bilat now covered with gauze and Cara wrap Results Laboratory Results: Assessment & Plan - Diagnosis (1) Dislocation of internal left hip prosthesis, initial encounter Is this a current diagnosis for this admission?: Yes (2) COPD (chronic obstructive pulmonary disease) Qualifiers: COPD type: unspecified COPD Qualified Code(s): J44.9 - Chronic obstructive pulmonary disease, unspecified Is this a current diagnosis for this admission?: Yes (3) Hypertension Qualifiers: Hypertension type: essential hypertension Qualified Code(s): I10 - Essential (primary) hypertension Is this a current diagnosis for this admission?: Yes Plan: well controlled; continue current meds (4) Constipation Qualifiers: Constipation type: unspecified constipation type Qualified Code(s): K59.00 - Constipation, unspecified Is this a current diagnosis for this admission?: Yes Plan: Resolved. She reports satisfactory BM yesterday evening (5) Skin tear of right lower leg without complication Is this a current diagnosis for this admission?: Yes (6) Skin tear of left lower leg without complication Is this a current diagnosis for this admission?: Yes - Time Time Spent with patient: 15-24 minutes - Plan Summary Plan Summary: She remains medically stable; able to discharge from my standpoint, awaiting orthopedic approval.
[2017-09-06] MEDS ORDERED: LIDOCAINE 0.5% INJ-PF (5 MG/ML) 50 ML SDV SUBCUT PRN (05:00)
[2017-09-06] MEDS ORDERED: LACTATED RINGERS 1000 ML IV PRN (05:00)
--- NOTE | 2017-09-06 07:21 | PDOC DISCHARGE SUMMARY ---
General - Admit/Disc Date/PCP Admission Date/Primary Care Provider: 08/30/17 15:21 Discharge Date: 09/06/17 - Discharge Diagnosis (1) Dislocation of internal left hip prosthesis, initial encounter Is this a current diagnosis for this admission?: Yes - Additional Information Resuscitation Status: Full Code Discharge Diet: As Tolerated, Regular Discharge Activity: Activity As Tolerated, No Driving, No tub bath, Walk Frequently Home Medications: Acetaminophen [Tylenol 325 mg Tablet] 650 mg PO Q4HP PRN 08/30/17 Azithromycin [Zithromax 250 mg Tablet] 500 mg PO DAILY MDD stop 09/0208/30/17 Bisacodyl [Dulcolax 10 mg Supp.rect] 10 mg SD ASDIR PRN MDD See Patient Comments 08/30/17 Fluticasone/Salmeterol [Advair 250-50 Diskus 14 Dose/Diskus] 1 inh IH Q12 Furosemide [Lasix 20 mg Tablet] 20 mg PO DAILYP PRN 08/30/17 Guaifenesin [Mucinex Sr 600 mg Tablet.sa] 600 mg PO Q12 08/30/17 Ibuprofen [Motrin 400 mg Tablet] 400 mg PO Q8HP PRN 08/30/17 Levalbuterol HCl [Xopenex Neb 1.25 mg/3 ml Ampul] 1.25 mg NEB RTQ6HP PRN Lisinopril [Prinivil 10 mg Tablet] 10 mg PO DAILY 08/30/17 Magnesium Hydroxide [Milk of Magnesia 30 ml Udcup] 30 ml PO ASDIR PRN MDD See Patient Comments 08/30/17 Melatonin [Melatin] 3 mg PO QHS 08/30/17 Multivitamin [Tab-A-Bassem (Multiple Vitamin) Tablet] 1 tab PO DAILY 08/30/17 Na Phos,M-B/Na Phos,Di-Ba [Fleet Enema (Adult) 133 ml] 1 applic SD ASDIR PRN MDD See Patient Comments 08/30/17 Omeprazole 40 mg PO Q12 08/30/17 Paroxetine HCl [Paxil] 10 mg PO DAILY 08/30/17 Potassium Chloride [Klor-Con 10 Meq Tablet.sa] 10 meq PO DAILY 08/30/17 Prednisone [Deltasone 5 mg Tablet] 7.5 mg PO DAILY 08/30/17 Promethazine HCl [Phenergan 25 mg Tablet] 25 mg PO Q6HP PRN MDD 3 tabs 08/30/17 Rivaroxaban [Xarelto 10 mg Tablet] 10 mg PO QHS 08/30/17 Tiotropium [place] [Spiriva] 1 puff IH DAILY 08/30/17 Tramadol HCl [Ultram 50 mg Tablet] 50 mg PO Q6HP PRN 08/30/17 History of Present Illness History of Present Illness: MARJORIE GOMEZ is a 87 year old female who presented to the emergency room with dislocated left hip hemiarthroplasty. She was admitted to the hospital and underwent open reduction of hemiarthroplasty dislocation. Hospital Course Hospital Course: 87-year-old white female who was admitted through the emergency department and underwent open reduction of left hip hemiarthroplasty dislocation. She was returned to postanesthesia care in satisfactory condition. She was then taken to the surgical floor where she was seen by physical therapy for weightbearing as tolerated and nursing staff for pain control. She made slow progress yet is much more functional now with physical therapy and has ambulated a maximum of 30 feet independently. She will be discharged to her home today with home health nursing, home physical therapy, with wheeled walker, bedside commode and a hospital bed. Physical Exam Vital Signs: Temp Pulse Resp BP Pulse Ox 36.3 C 88 18 130/64 H 92 09/05/17 23:41 09/05/17 23:41 09/05/17 23:41 09/05/17 23:41 09/05/17 23:41 Intake & Output 09/05/17 09/06/17 09/07/17 06:59 06:59 06:59 Intake Total 940 924 Balance 940 924 Weight 44.6 kg General appearance: PRESENT: no acute distress, well-developed, well-nourished Head exam: PRESENT: atraumatic, normocephalic Respiratory exam: PRESENT: unlabored Pulses: PRESENT: normal dorsalis pedis pul, +2 pedal pulses bilateral Vascular exam: PRESENT: normal capillary refill Additional comments: Patient lying recumbent in hospital bed with left lower extremity in full extension. Patient's OpSite dressings are clean dry and intact. These are left in place. She is nontender to palpation. She has brisk capillary refill to toes on bilateral lower extremities and there is minimal pedal edema. Her sensory motor functions are intact and her distal neurovascular exam is intact. Of note patient reports that she is cold and is requesting more blankets. Musculoskeletal exam: PRESENT: ambulatory Additional comments: Patient makes slow yet steady progress with physical therapy ambulating 30 feet independently. She is also now able to transfer from her bed to chair at the bedside as well as walk to the toilet independently. As she has attained these goals I believe she is eligible for discharge to her home. She will continue to work with home physical therapy to improve strength range of motion and further ambulation of left lower extremity. Neurological exam: PRESENT: alert, awake, oriented to person, oriented to place , oriented to time, oriented to situation, CN II-XII grossly intact. ABSENT: motor sensory deficit Psychiatric exam: PRESENT: appropriate affect, normal mood. ABSENT: homicidal ideation, suicidal ideation Skin exam: PRESENT: dry, intact, warm. ABSENT: cyanosis, rash Additional comments: Of note patient does have superficial abrasions and skin tears as well as ecchymosis present on the distal left lower extremity. This area is covered in a soft roll and Coban dressing. This is clean dry and intact on exam this morning. Results Laboratory Results: 09/03/17 04:49 09/03/17 04:49 08/31/17 09:00 Hip - Left Gram Stain - Final 08/31/17 09:00 Hip - Left Wound Culture - Final Staphylococcus Epidermidis Corynebacterium Species No Anaerobic Organisms Impressions: Fluoroscopy 08/31/17 00:00 IMPRESSION: IMAGE(S) OBTAINED DURING PROCEDURE. Hip X-Ray 08/31/17 00:00 IMPRESSION: IMAGE(S) OBTAINED DURING PROCEDURE. Plan Discharge Plan: 87-year-old white female status post open reduction of left hip hemiarthroplasty dislocation. She will be discharged home today with home health nursing, home physical therapy, wheeled walker, bedside commode, and hospital bed. The visiting nurse service will change the dressing when they see appropriate i.e. if it is saturated with kaylee blood. She will follow-up with Dr. Lopes and Geovani KENDRICK at [facility] for surgery 2 weeks after surgery for staple removal and reevaluation. Time Spent: Less than 30 Minutes
[2017-09-06] MEDS: GUAIFENESIN 600 MG TABLET.SA PO SCH ×2 (10:39→22:27)
[2017-09-06] MEDS: MULTIVITAMIN TABLET PO SCH (10:39)
[2017-09-06] MEDS: BISACODYL 5 MG TABEC PO SCH (10:39)
[2017-09-06] MEDS: POTASSIUM CHLORIDE 10 MEQ TABLET.SA PO SCH (10:39)
[2017-09-06] MEDS: ASPIRIN 81 MG TABLET, ENT COATED PO SCH (10:39)
[2017-09-06] MEDS: LISINOPRIL 10 MG TABLET PO SCH (10:40)
[2017-09-06] MEDS: PAROXETINE HCL 20 MG TABLET PO SCH (10:40)
[2017-09-06] MEDS: LANSOPRAZOLE 30 MG TAB.RAP.DR PO SCH ×2 (10:41→22:27)
[2017-09-06] MEDS: SENNOSIDES/DOCUSATE 8.6-50 MG 1 EACH TABLET PO SCH ×2 (10:41→18:29)
[2017-09-06] MEDS: PREDNISONE 5 MG TABLET PO SCH (10:42)
[2017-09-06] MEDS: TIOTROPIUM BROMIDE DPI 5 CAP/KIT (18 MCG/CAP) IH SCH (10:43)
[2017-09-06] MEDS: FLUTICASONE/SALMETEROL DISKUS 250-50 MCG/DOSE IH SCH ×2 (10:43→22:27)
[2017-09-06] MEDS: TRAMADOL HCL 50 MG TABLET PO PRN (18:29)
[2017-09-07] MEDS ORDERED: BENZOCAINE/MENTHOL SORE THROAT LOZENGE BUCCAL PRN (07:46)
--- NOTE | 2017-09-07 07:58 | Progress Note ---
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 she denies odynophagia, swollen glands, cough with phlegm, rhinorrhea, hemoptysis, fevers or chills. on evaluation there is very mild erythema to posterior oropharynx, very thin secretions down the back of her throat but no lesions, exudates, blisters or edema, hyperema and no LAD about the neck. neck is supple. lungs are CTAB and no resp distress or stridor. tongue is very dry with elevated papillae but no coating white, joya, schultz or otherwise. unclear etiology for her symptoms, no obvious pharyngitis. will add topical cepacol which is available OTC and instructed to let me know if it worsens and if d/c'd home as expected then to f/u with her PCP about it should it persist or worsen. she agrees with this plan, she really just wanted reassurance there wasn't any strep/infectious pharyngitis.
[2017-09-07 09:56] VITALS: BP 119/45
--- NOTE | 2017-09-07 11:14 | PDOC PROGRESS REPORT ---
Subjective Subjective:: Patient states she is doing well. No issues overnight. Reason For Visit: LEFT DISLOCATED HIP HEMIARTHROPLASTY Physical Exam Vital Signs: Temp Pulse Resp BP Pulse Ox 98.7 F 94 16 119/45 L 93 09/07/17 09:49 09/07/17 09:49 09/07/17 09:49 09/07/17 09:49 09/07/17 09:49 Intake & Output 09/06/17 09/07/17 09/08/17 06:59 06:59 06:59 Intake Total 924 220 Balance 924 220 Weight 44.6 kg 43.1 kg Musculoskeletal exam: PRESENT: other - Left hip: Dressing clean/dry/intact no erythema or drainage. Coban dressing intact. Intact plantar flexion/ dorsiflexion. Results Laboratory Results: 09/03/17 04:49 09/03/17 04:49 Impressions: Fluoroscopy 08/31/17 00:00 IMPRESSION: IMAGE(S) OBTAINED DURING PROCEDURE. Hip X-Ray 08/31/17 00:00 IMPRESSION: IMAGE(S) OBTAINED DURING PROCEDURE. Assessment & Plan - Diagnosis (1) Dislocation of internal left hip prosthesis, initial encounter Is this a current diagnosis for this admission?: Yes Plan: Status post open reduction left hip hemiarthroplasty dislocation Patient has done well with physical therapy. She was kept another night due to lack of home health services. At this point everything is set up for discharge and will be discharged to home.
[2017-09-07] MEDS: MULTIVITAMIN TABLET PO SCH (11:18)
[2017-09-07] MEDS: POTASSIUM CHLORIDE 10 MEQ TABLET.SA PO SCH (11:18)
[2017-09-07] MEDS: LANSOPRAZOLE 30 MG TAB.RAP.DR PO SCH (11:18)
[2017-09-07] MEDS: PAROXETINE HCL 20 MG TABLET PO SCH (11:18)
[2017-09-07] MEDS: GUAIFENESIN 600 MG TABLET.SA PO SCH (11:19)
[2017-09-07] MEDS: LISINOPRIL 10 MG TABLET PO SCH (11:19)
[2017-09-07] MEDS: ASPIRIN 81 MG TABLET, ENT COATED PO SCH (11:19)
[2017-09-07] MEDS: OXYCODONE-ACETAMINOPHEN 5-325 MG TABLET PO PRN (11:20)
[2017-09-07] MEDS: FLUTICASONE/SALMETEROL DISKUS 250-50 MCG/DOSE IH SCH (11:21)
[2017-09-07] MEDS: PREDNISONE 5 MG TABLET PO SCH (11:23)
[2017-09-07] MEDS: TIOTROPIUM BROMIDE DPI 5 CAP/KIT (18 MCG/CAP) IH SCH (11:23)
[2017-09-07] MEDS: BISACODYL 5 MG TABEC PO SCH (11:24)
[2017-09-07] MEDS: SENNOSIDES/DOCUSATE 8.6-50 MG 1 EACH TABLET PO SCH (11:24)
== END 2017-09-07 13:50 | disposition home health service (06) | DRG 482 ==
LOC: 4S 15:21 → UNDOADMIN 15:21 → 4S 08-31 13:43 → 4N 09-02 18:07
PROVIDERS: ADMIT Orthopaedic Surgery; ATTEND Orthopaedic Surgery
PROC: 0SSB0ZZ Reposition Left Hip Joint, Open Approach (ICD-10-PCS; principal; 2017-08-31 08:00)
DX: T84.021A Dislocation of internal left hip prosthesis, initial encounter (principal); I10 Essential (primary) hypertension; J44.9 Chronic obstructive pulmonary disease, unspecified; K27.9 Peptic ulcer, site unspecified, unspecified as acute or chronic, without hemorrhage or perforation; M19.90 Unspecified osteoarthritis, unspecified site; Z90.49 Acquired absence of other specified parts of digestive tract; Z90.710 Acquired absence of both cervix and uterus; Z79.899 Other long term (current) drug therapy; Z88.8 Allergy status to other drugs, medicaments and biological substances; X58.XXXA Exposure to other specified factors, initial encounter; Y93.89 Activity, other specified; Y92.89 Other specified places as the place of occurrence of the external cause; Y99.8 Other external cause status
CPT/HCPCS: 01210; 36415; 36430; 73501; 80048; 83735; 85025; 85027; 86850; 86900; 86901; 86920; 87070; 87075; 87077; 87186; 87205; 94799; G8978-GP; G8979-GP; G8987-GO; G8988-GO; J0131; J0690; J1940; J2250; J2405; J2704; J3010; J3475; J3490; J7120; J7512; P9016

== ENCOUNTER → 2017-11-19 | Outpatient (CLI) | payer MEDICARE ==
--- NOTE | 2017-11-19 15:33 | RADIOLOGY REPORT (SQ) ---
EXAM DESCRIPTION: CT SOFT TISSUE NECK WITH COMPLETED DATE/TIME: 11/19/2017 3:08 pm REASON FOR STUDY: PARALYSIS OF VOCAL CORDS AND LARYNX, BILATERAL R07.89 OTHER CHEST PAIN COMPARISON: None. TECHNIQUE: Post IV contrasted scanning from skull base through lung apices with review of bone, soft tissue and lung windows. Reconstructed coronal and sagittal MPR images reviewed. All images stored on PACS. All CT scanners at this facility use dose modulation, iterative reconstruction, and/or weight based d osing when appropriate to reduce radiation dose to as low as reasonably achievable (ALARA). [facility]: Dose Right [facility]: CareDose [facility]: Dose Right [facility]: Teradose 4D [facility]: [employer] CONTRAST TYPE AND DOSE: contrast/concentration: Isovue 370.00 mg/ml; Total Contrast Delivered: 75.0 ml; Total Saline Delivered: 55.0 ml RENAL FUNCTION: Creatinine 0.8. RADIATION DOSE: CT Rad equipment meets quality standard of care and radiation dose reduction techniq ues were employed. CTDIvol: 6.9 - 11.9 mGy. DLP: 533 mGy-cm. . LIMITATIONS: Patient motion. FINDINGS: SKULL BASE: Intact. MAJOR SALIVARY GLANDS: No solid or cystic masses. No inflammatory changes. LYMPHADENOPATHY: No adenopathy. MUCOSAL MASSES OR ASYMMETRY: No mucosal masses or asymmetry. LARYNX/CORDS: Asymmetry of the right vocal fold consistent with clinical history of vocal cord paraly sis. No evidence of underlying mass. VASCULAR STRUCTURES: The major vessels are patent. LUNG APICES: COPD. BONES: Intact. THYROID: Subcentimeter nodules. IMPRESSION: Right vocal cord paralysis. No evidence of underlying mass or adenopathy. TECHNICAL DOCUMENTATION: JOB ID: [id number] Quality ID # [id number]: Final reports with documentation of one or more dose reduction techniques (e.g., Au tomated exposure control, adjustment of the mA and/or kV according to patient size, use of iterative reconstruction technique) 2010 [employer]- All Rights Reserved Reading location - IP/workstation name: [email or web address]
--- NOTE | 2017-11-19 18:16 | RADIOLOGY REPORT (SQ) ---
EXAM DESCRIPTION: CT CHEST WITH COMPLETED DATE/TIME: 11/19/2017 3:08 pm REASON FOR STUDY: OTHER CHEST PAIN R07.89 OTHER CHEST PAIN COMPARISON: Chest radiograph 08/12/2017 TECHNIQUE: CT scan of the chest performed using helical scanning technique with dynamic intravenous contrast injection. Images reviewed with lung, soft tissue and bone windows. Reconstructed coronal and sagittal MPR images reviewed. All images stored on PACS. All CT scanners at this facility use dose modulation, iterative reconstruction, and/or weight based d osing when appropriate to reduce radiation dose to as low as reasonably achievable (ALARA). [facility]: Dose Right [facility]: CareDose [facility]: Dose Right [facility]: Teradose 4D [facility]: [employer] CONTRAST TYPE AND DOSE: 75 cc Isovue 370- low osmolar. RENAL FUNCTION: Creatinine 0.8 RADIATION DOSE: Total DLP: 533 mGy cm. LIMITATIONS: None. FINDINGS: LUNGS AND PLEURA: Mild paraseptal emphysematous changes. No acute infiltrate. No mass is seen. HILAR AND MEDIASTINAL STRUCTURES: There is a large hiatal hernia HEART AND VASCULAR STRUCTURES: No aneurysm or dissection. No central pulmonary emboli. No pericardi al effusion. HARDWARE: None in the chest. Hardware is present in the spine. UPPER ABDOMEN: The entire stomach appears to be above the diaphragm. THYROID AND OTHER SOFT TISSUES: No masses. No adenopathy. BONES: Marked dorsal kyphosis with wedging of mid to lower thoracic vertebrae. OTHER: No other significant finding. IMPRESSION: 1. Large hiatal hernia. 2. Mild pulmonary emphysema. 3. Osseous findings as described. TECHNICAL DOCUMENTATION: JOB ID: [id number] Quality ID # [id number]: Final reports with documentation of one or more dose reduction techniques (e.g., Au tomated exposure control, adjustment of the mA and/or kV according to patient size, use of iterative reconstruction technique) 2010 [employer]- All Rights Reserved Reading location - IP/workstation name: [email or web address]
== END ==
LOC: RAD 13:59
PROVIDERS: ATTEND Otolaryngology
DX: R07.89 Other chest pain (principal); J38.02 Paralysis of vocal cords and larynx, bilateral; K44.9 Diaphragmatic hernia without obstruction or gangrene; J43.9 Emphysema, unspecified
CPT/HCPCS: 70491; 71260; 82565

== ENCOUNTER → 2017-11-22 | Outpatient (CLI) | payer MEDICARE ==
--- NOTE | 2017-11-22 13:01 | RADIOLOGY REPORT (SQ) ---
EXAM DESCRIPTION: BARIUM SWALLOW ESOPHAGUS COMPLETED DATE/TIME: 11/22/2017 10:41 am REASON FOR STUDY: DYSPHAGIA R13.10 DYSPHAGIA, UNSPECIFIED COMPARISON: Barium swallow 05/15/2013 TECHNIQUE: Under fluoroscopic guidance, patient ingested thin barium then switching over to water-so luble contrast. Fluoroscopic spot images and routine radiographic images acquired and stored on PACS. 12 MM BARIUM TABLET GIVEN: No. LIMITATIONS: None. FLUOROSCOPY TIME: 1.3 minutes 14 fluoroscopy images saved to PACS. FINDINGS: NEUROMUSCULAR COORDINATION OF SWALLOW: Normal. Small amount of aspiration. ESOPHAGEAL MOTILITY: Marked tertiary contractions and dysmotility throughout the entire length of the esophagus. No esophageal spasm. ESOPHAGEAL MUCOSA: There is foreshortening of the esophagus due to a large fixed hiatal hernia. Muco leanne evaluation is somewhat limited, no definite mass lesions visualized. GASTRO-ESOPHAGEAL JUNCTION: A large fixed hiatal hernia is visualized containing the entire stomach w ith some degree of rotation of the stomach which is new compared to previous barium swallow dated 04/18. There is significant delay in gastric emptying. Contrast did not empty out of the stomach u ntil the patient was given sips of water. NON-GI TRACT STRUCTURES: No significant finding. OTHER: No other significant finding. IMPRESSION: 1. SEVERE ESOPHAGEAL DYSMOTILITY. 2. INTRATHORACIC STOMACH WITH SOME DEGREE OF ROTATION. THE ROTATION IS NEW COMPARED TO BARIUM SWALL OW 05/15/2013. ALTHOUGH THERE IS NO COMPLETE OBSTRUCTION, THERE IS SIGNIFICANT DELAY IN GASTRIC EMPTY ING OF CONTRAST. COMMENT: These findings were called to the ordering physician at time of dictation. Quality ID [id number]: Final reports for procedures using fluoroscopy that document radiation exposure marilin willy, or exposure time and number of fluorographic images (if radiation exposure indices are not avail able) TECHNICAL DOCUMENTATION: JOB ID: [id number] [employer]- All Rights Reserved Reading location - IP/workstation name: [facility]
== END ==
LOC: RAD 09:14
PROVIDERS: ATTEND Otolaryngology
DX: R13.10 Dysphagia, unspecified (principal); K22.4 Dyskinesia of esophagus
CPT/HCPCS: 74220

== ENCOUNTER 2018-04-30 15:17 | Emergency (ER) | payer MEDICARE ==
--- NOTE | 2018-04-30 17:09 | ER Document Report ---
ED General Pain - General Chief Complaint: Rib Pain Stated Complaint: FALL BACK PAIN Time Seen by Provider: 04/30/18 16:21 Notes: This is a 88-year-old female patient to the emergency department chief complaint of fall yesterday. States that she has had increasing pain in her head, neck, right chest, right shoulder and right hip. Patient has severe osteoporosis. Has broken her left hip twice in the last 12 months. Has broken her neck in the past from a fall. Has broken multiple bones from falling. States that movement at all makes it worse. TRAVEL OUTSIDE OF THE [place] IN LAST 30 DAYS: No - HPI Onset: Yesterday Onset/Duration: Sudden Quality of pain: Achy Severity: Moderate Pain Level: 4 Associated symptoms: None - Related Data Allergies/Adverse Reactions: buspirone [From BuSpar] Allergy (Intermediate, Verified 08/30/17 20:13) skakes uncontrollable ceftriaxone [From Rocephin] Allergy (Verified 08/05/17 05:33) codeine [Codeine] Allergy (Verified 08/08/11 16:45) adhesive tape Adverse Reaction (Intermediate, Verified 08/30/17 20:08) peels her skin off hydromorphone [From Dilaudid] Adverse Reaction (Intermediate, Verified 08/30/17 20:10) Hallucinations pregabalin [From Lyrica] Adverse Reaction (Intermediate, Verified 08/30/17 20:11 ) Blurred vision Past Medical History - General Information source: Patient, Relative, [facility] Records - Social History Smoking Status: Former Smoker Cigarette use (# per day): No Frequency of alcohol use: None Drug Abuse: None Lives with: Family Family History: None Patient has suicidal ideation: No Patient has homicidal ideation: No - Past Medical History Cardiac Medical History: Reports: Hx Hypertension Pulmonary Medical History: Reports: Hx COPD Renal/ Medical History: Denies: Hx Peritoneal Dialysis Musculoskeletal Medical History: Reports Hx Arthritis Psychiatric Medical History: Denies: Hx Depression Past Surgical History: Reports: Hx Appendectomy, Hx Cholecystectomy, Hx Hysterectomy, Hx Orthopedic Surgery - Left proximal femoral hemiarthroplasty - Immunizations Hx Diphtheria, Pertussis, Tetanus Vaccination: No Review of Systems - Review of Systems Notes: Constitutional: denies: Chills, Diaphoresis, Fever, Malaise, Weakness EENT: denies: Eye discharge, Blurred vision, Tearing, Double vision, Nose congestion, Nose discharge, Throat swelling, Mouth pain Cardiovascular: denies: Palpitations, Heart racing, Orthopnea, Dyspnea, Chest pain Respiratory: denies: Cough, Hurts to breathe, Wheezing, Shortness of breath Gastrointestinal: denies: Abdominal pain, Diarrhea, Nausea, Vomiting, Black stools, bright red blood in stool Genitourinary: denies: Burning, Dysuria, Discharge, Frequency, Flank pain, Hematuria Musculoskeletal: Planing of right-sided chest pain, right hip pain, right shoulder pain, neck pain and headache Hematologic/Lymphatic: denies: Anemia, Easy bleeding, Easy bruising, Blood clots Neurological/Psychological: denies: Confusion, Dementia, Depression, Loss of consciousness Skin: No lesions, no masses, no skin breakdown, no abscesses Physical Exam - Vital signs Interpretation: Normal - General General appearance: Appears well, Alert - HEENT Head: Normocephalic, Atraumatic Eyes: Normal Pupils: PERRL Neck: Other - All tenderness to palpation midline at C5-C6 and C7. - Respiratory Respiratory status: No respiratory distress Chest status: Nontender Breath sounds: Normal Chest palpation: Normal - Cardiovascular Rhythm: Regular Heart sounds: Normal auscultation Murmur: No - Abdominal Inspection: Normal Distension: No distension Bowel sounds: Normal Tenderness: Nontender Organomegaly: No organomegaly - Back Back: Normal, Nontender. No: Deformity/step-off - Extremities General upper extremity: Normal inspection, Nontender, Normal color, Normal ROM , Normal temperature General lower extremity: Other - In the palpation right lateral and posterior chest wall, right proximal humerus and shoulder, right greater trochanter area and pelvis.. No: Antonina's sign - Neurological Neuro grossly intact: Yes Cognition: Normal Orientation: AAOx4 [place] Coma Scale Eye Opening: Spontaneous [place] Coma Scale Verbal: Oriented [place] Coma Scale Motor: Obeys Commands Dash Coma Scale Total: 15 Speech: Normal Motor strength normal: LUE, RUE, LLE, RLE Sensory: Normal - Psychological Associated symptoms: Normal affect, Normal mood - Skin Skin Temperature: Warm Skin Moisture: Dry Skin Color: Normal Course - Re-evaluation Re-evalutation: 04/30/18 17:17 Based on the fact the patient is extremely osteopenic. Will order CT scans to assess her injuries. Patient states that she hit her head really hard as well and has a headache since the time of the injury so we will get a head CT as well. Has pain in her neck so we will get a CT scan of her neck. Has pain in her chest with CT scan of her chest. Has pain in her pelvis of getting CT scan of the pelvis as well. 18 18:[address] 04/30/18 17:07 IMPRESSION: MILD CHRONIC MICROVASCULAR ISCHEMIA. NO ACUTE IMAGING FINDINGS IN THE BRAIN. EVIDENCE OF ACUTE STROKE: NO. Abdomen/Pelvis CT 04/30/18 17:08 IMPRESSION: 1. Large hiatal hernia. Right pleural effusion. Subsegmental atelectasis in the right lower lobe. 2. Possible 11 mm low-density lesion in the head of the pancreas. 3. Possible constipation. Mild diverticulosis coli. 4. Osseous findings as described. Cervical Spine CT 04/30/18 17:08 IMPRESSION: Chronic fracture of the odontoid. No acute vertebral fractures. Degenerative disc disease. Facet arthropathy. Chronic lung changes. Chest CT 04/30/18 17:08 IMPRESSION: 1. Extensive ground-glass infiltrates suggesting chronic interstitial changes. Mild pulmonary edema could be present. 2. Moderate right pleural effusion with atelectatic changes in the right lower lobe. 3. 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 4. Osseous findings as described. Shoulder X-Ray 04/30/18 17:08 IMPRESSION: Possible nondisplaced fracture of the greater tuberosity. Multiple acute and chronic right rib fractures. 04/30/18 18:43 Patient has multiple chronic findings.. There does appear to be a rib fracture on the right. No obvious hip fracture. Questionable greater tuberosity fracture on the proximal humerus however looking at CT scan I actually do not see anything there. Regardless will place her in a sling. Pain medication for the rib fractures. I did spend a long amount of time speaking with the family as well as the patient. Patient is adamant that she is not going to be admitted to the hospital. She wants to go home. I did offer admission for pain control. I did speak with him at length about her pleural effusion on the right, rib fractures. Patient has a bottle of tramadol at home that she will use. I have asked her to increase her ibuprofen. She has been encouraged to return for any worsening symptoms or concerns. 04/30/18 19:09 Discharge - Discharge Clinical Impression: Pleural effusion Closed rib fracture Qualifiers: Encounter type: initial encounter Rib fracture type: multiple ribs Laterality: right Qualified Code(s): S22.41XA - Multiple fractures of ribs, right side, initial encounter for closed fracture Contusion of right hip Qualifiers: Encounter type: initial encounter Qualified Code(s): S70.01XA - Contusion of right hip, initial encounter Condition: Good Disposition: HOME, SELF-CARE Instructions: Rib Injuries and Fractures ([facility]), Pleural Effusion ([facility]), Contusion ([facility]) Additional Instructions: In the event that your pain is getting severe, you are having worsening symptoms , you are having significant shortness of breath or for any other concerns we are here for you. Please return for repeat evaluation. Please keep up on your pain has pain can inhibit you from wanting to take a deep breath. Not taking big deep breaths can lead to pneumonia. Please use your incentive spirometer as instructed. 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 Please use your breathing treatments at home every 4-6 hours while you are awake. Referrals: DIANE BARRIENTOS MD [Primary Care Provider] - Follow up in 3-5 days
--- NOTE | 2018-04-30 17:47 | RADIOLOGY REPORT (SQ) ---
EXAM DESCRIPTION: SHOULDER RIGHT 2 OR MORE VIEWS COMPLETED DATE/TIME: 04/30/2018 5:36 pm REASON FOR STUDY: fall, pain COMPARISON: None. NUMBER OF VIEWS: Three views. TECHNIQUE: Internal rotation, external rotation, and Y view images acquired of the right shoulder. LIMITATIONS: None. FINDINGS: MINERALIZATION: Osteopenia. BONES: Possible nondisplaced fracture of the greater tuberosity. JOINTS: No dislocation. VISUALIZED LUNGS AND RIBS: Multiple acute and chronic right rib fractures. No obvious pneumothorax. SOFT TISSUES: No radiopaque foreign body. OTHER: No other significant finding. IMPRESSION: Possible nondisplaced fracture of the greater tuberosity. Multiple acute and chronic right rib fractures. TECHNICAL DOCUMENTATION: JOB ID: [id number] [employer]- All Rights Reserved Reading location - IP/workstation name: [email or web address]
[2018-04-30] MEDS ORDERED: TRAMADOL HCL 50 MG TABLET PO ONE (17:58)
--- NOTE | 2018-04-30 18:04 | RADIOLOGY REPORT (SQ) ---
EXAM DESCRIPTION: CT HEAD WITHOUT COMPLETED DATE/TIME: 04/30/2018 5:53 pm REASON FOR STUDY: fall, pain COMPARISON: 08/16/2011 TECHNIQUE: Axial images acquired through the brain without intravenous contrast. Images reviewed wi th bone, brain and subdural windows. Additional sagittal and coronal reconstructions were generated. Images stored on PACS. All CT scanners at this facility use dose modulation, iterative reconstruction, and/or weight based d osing when appropriate to reduce radiation dose to as low as reasonably achievable (ALARA). [facility]: Dose Right [facility]: CareDose [facility]: Dose Right [facility]: Teradose 4D [facility]: [employer] RADIATION DOSE: CT Rad equipment meets quality standard of care and radiation dose reduction techniq ues were employed. CTDIvol: 53.2 mGy. DLP: 991 mGy-cm. mGy. LIMITATIONS: None. FINDINGS: VENTRICLES: Prominent ventricles secondary to involutional atrophy. CEREBRUM: Cortical atrophy. No masses. No hemorrhage. No midline shift. No evidence for acute inf arction. Few scattered areas of low density in the white matter most likely chronic small vessel isch emic changes. CEREBELLUM: No masses. No hemorrhage. No alteration of density. No evidence for acute infarction. EXTRAAXIAL SPACES: No fluid collections. No masses. ORBITS AND GLOBE: No intra- or extraconal masses. Normal contour of globe without masses. CALVARIUM: No fracture. PARANASAL SINUSES: No fluid or mucosal thickening. SOFT TISSUES: No mass or hematoma. OTHER: No other significant finding. IMPRESSION: MILD CHRONIC MICROVASCULAR ISCHEMIA. NO ACUTE IMAGING FINDINGS IN THE BRAIN. EVIDENCE OF ACUTE STROKE: NO. COMMENT: Quality ID # [id number]: Final reports with documentation of one or more dose reduction techniques (e.g., Automated exposure control, adjustment of the mA and/or kV according to patient size, use of iterative reconstruction technique) TECHNICAL DOCUMENTATION: JOB ID: [id number] [employer]- All Rights Reserved Reading location - IP/workstation name: [email or web address]
--- NOTE | 2018-04-30 18:10 | RADIOLOGY REPORT (SQ) ---
EXAM DESCRIPTION: CT CHEST WITHOUT COMPLETED DATE/TIME: 04/30/2018 5:53 pm REASON FOR STUDY: fall, pain COMPARISON: 11/19/2017 TECHNIQUE: CT scan performed of the chest without intravenous contrast. Images reviewed with lung, soft tissue and bone windows. Reconstructed coronal and sagittal MPR images reviewed. All images st ored on PACS. All CT scanners at this facility use dose modulation, iterative reconstruction, and/or weight based d osing when appropriate to reduce radiation dose to as low as reasonably achievable (ALARA). [facility]: Dose Right [facility]: CareDose [facility]: Dose Right [facility]: Teradose 4D [facility]: [employer] RADIATION DOSE: CT Rad equipment meets quality standard of care and radiation dose reduction techniq ues were employed. CTDIvol: 6.7 mGy. DLP: 392 mGy-cm. mGy. LIMITATIONS: No technical limitations. FINDINGS: LUNGS AND PLEURA: Extensive ground-glass infiltrates. Moderate right pleural effusion wit h compressive atelectasis in the right lower lobe. HILAR AND MEDIASTINAL STRUCTURES: Borderline aneurysm dilatation of the ascending aorta at 4 cm. No mediastinal or hilar masses or adenopathy. HEART AND VASCULAR STRUCTURES: See above. No pericardial effusion. Extensive coronary atheroscleros is. UPPER ABDOMEN: See separate report of the CT of the abdomen. THYROID AND OTHER SOFT TISSUES: No masses. No adenopathy. BONES: Compression changes. Increased dorsal kyphosis. Surgical changes in the lower lumbar spine. HARDWARE: None in the chest. OTHER: No other significant findings. IMPRESSION: 1. Extensive ground-glass infiltrates suggesting chronic interstitial changes. Mild pu lmonary edema could be present. 2. Moderate right pleural effusion with atelectatic changes in the right lower lobe. 3. 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 4. Osseous findings as described. TECHNICAL DOCUMENTATION: JOB ID: [id number] Quality ID # [id number]: Final reports with documentation of one or more dose reduction techniques (e.g., Au tomated exposure control, adjustment of the mA and/or kV according to patient size, use of iterative reconstruction technique) 2010 [email or web address]- All Rights Reserved Reading location - IP/workstation name: [email or web address]
--- NOTE | 2018-04-30 18:13 | RADIOLOGY REPORT (SQ) ---
EXAM DESCRIPTION: CT CERVICAL SPINE WITHOUT COMPLETED DATE/TIME: 04/30/2018 5:53 pm REASON FOR STUDY: fall, pain COMPARISON: 08/08/2011 TECHNIQUE: Axial images acquired through the cervical spine without intravenous contrast. Images re viewed with lung, soft tissue and bone windows. Reconstructed coronal and sagittal MPR images review ed. Images stored on PACS. All CT scanners at this facility use dose modulation, iterative reconstruction, and/or weight based d osing when appropriate to reduce radiation dose to as low as reasonably achievable (ALARA). [facility]: Dose Right [facility]: CareDose [facility]: Dose Right [facility]: Teradose 4D [facility]: Smart [employer] RADIATION DOSE: CT Rad equipment meets quality standard of care and radiation dose reduction techniq ues were employed. CTDIvol: 11.7 mGy. DLP: 194 mGy-cm. mGy. LIMITATIONS: None. FINDINGS: ALIGNMENT: Increased lordosis. MINERALIZATION: Normal. VERTEBRAL BODIES: Chronic fracture the odontoid. No acute vertebral fractures. DISCS: Disc spaces are narrowed at C5-6 and C6-7 with anterior and posterior osteophytes. FACETS, LATERAL MASSES, POSTERIOR ELEMENTS: Hypertrophic facet changes throughout the cervical spine, more prominent on the right than the left. HARDWARE: None in the spine. VISUALIZED RIBS: No fractures. LUNG APICES AND SOFT TISSUES: Chronic lung changes. OTHER: No other significant finding. IMPRESSION: Chronic fracture of the odontoid. No acute vertebral fractures. Degenerative disc dise ase. Facet arthropathy. Chronic lung changes. TECHNICAL DOCUMENTATION: JOB ID: [id number] Quality ID # [id number]: Final reports with documentation of one or more dose reduction techniques (e.g., Au tomated exposure control, adjustment of the mA and/or kV according to patient size, use of iterative reconstruction technique) 2010 [employer]- All Rights Reserved Reading location - IP/workstation name: [email or web address]
--- NOTE | 2018-04-30 18:19 | RADIOLOGY REPORT (SQ) ---
EXAM DESCRIPTION: CT ABD/PELVIS NO ORAL OR IV COMPLETED DATE/TIME: 04/30/2018 5:53 pm REASON FOR STUDY: fall, pain COMPARISON: None. TECHNIQUE: CT scan of the abdomen and pelvis performed without intravenous or oral contrast. Images reviewed with lung, soft tissue, and bone windows. Reconstructed coronal and sagittal MPR images revi ewed. All images stored on PACS. All CT scanners at this facility use dose modulation, iterative reconstruction, and/or weight based d osing when appropriate to reduce radiation dose to as low as reasonably achievable (ALARA). [facility]: Dose Right [facility]: CareDose [facility]: Dose Right [facility]: Teradose 4D [facility]: [employer] RADIATION DOSE: mGy. LIMITATIONS: None. FINDINGS: LOWER CHEST: Large hiatal hernia. Right pleural effusion with subsegmental atelectasis in the right lower lobe. NON-CONTRASTED LIVER, SPLEEN, ADRENALS: Evaluation limited by lack of IV contrast. No identified sign ificant masses. PANCREAS: An 11 mm low-density lesion is suggested in the head of the pancreas. See image 47. GALLBLADDER: Surgically absent. RIGHT KIDNEY AND URETER: No suspicious masses. Assessment limited by lack of IV contrast. No signif icant calcifications. No hydronephrosis or hydroureter. LEFT KIDNEY AND URETER: No suspicious solid masses. There is a 3 cm cyst. No significant calcifica tions. No hydronephrosis or hydroureter. AORTA AND RETROPERITONEUM: No aneurysm. No retroperitoneal masses or adenopathy. BOWEL AND PERITONEAL CAVITY: Considerable stool is present. Mild sigmoid diverticulosis. No acute i nflammatory changes. APPENDIX: Surgically absent. PELVIS, BLADDER, AND ABDOMINAL WALL:Urinary bladder is distended. No pelvic masses are seen. The ut erus is absent. BONES: Compression changes. Increased dorsal kyphosis. Rods in the lumbar spine. OTHER: No other significant finding. IMPRESSION: 1. Large hiatal hernia. Right pleural effusion. Subsegmental atelectasis in the right lower lobe. 2. Possible 11 mm low-density lesion in the head of the pancreas. 3. Possible constipation. Mild diverticulosis coli. 4. Osseous findings as described. COMMENT: Quality ID # [id number]: Final reports with documentation of one or more dose reduction techniques (e.g., Automated exposure control, adjustment of the mA and/or kV according to patient size, use of iterative reconstruction technique) TECHNICAL DOCUMENTATION: JOB ID: [id number] [employer] [facility] All Rights Reserved Reading location - IP/workstation name: [email or web address]
== END 2018-04-30 21:10 | disposition home or self-care (01) ==
LOC: ER 15:17
DX: S22.41XA Multiple fractures of ribs, right side, initial encounter for closed fracture (principal); S70.01XA Contusion of right hip, initial encounter; J90 Pleural effusion, not elsewhere classified; R07.81 Pleurodynia; R51 Headache; M54.2 Cervicalgia; R07.9 Chest pain, unspecified; M25.511 Pain in right shoulder; M25.551 Pain in right hip; M81.0 Age-related osteoporosis without current pathological fracture; W19.XXXA Unspecified fall, initial encounter; Z87.81 Personal history of (healed) traumatic fracture; I10 Essential (primary) hypertension; J44.9 Chronic obstructive pulmonary disease, unspecified; Z87.891 Personal history of nicotine dependence
CPT/HCPCS: 99284; 73030; 70450; 71250; 72125; 74176; A9270

== ENCOUNTER 2018-05-07 18:53 | Inpatient (IN) | payer MEDICARE ==
--- NOTE | 2018-05-07 19:07 | ER Document Report ---
ED Respiratory Problem - General Chief Complaint: Shortness Of Breath Stated Complaint: DIFFICULTY BREATHING Time Seen by Provider: 05/07/18 19:06 Mode of Arrival: Stretcher Information source: Patient TRAVEL OUTSIDE OF THE [place] IN LAST 30 DAYS: No - HPI Patient complains to provider of: Short of breath Onset: Just prior to arrival Duration: Continuous Quality of pain: No pain Severity: None Pain Level: Denies Context: Recent immobilization Short of Breath: Severe Cough: Nonproductive Sputum amount: None Associated symptoms: None Similar symptoms previously: No Recently seen / treated by doctor: No - Related Data Allergies/Adverse Reactions: buspirone [From BuSpar] Allergy (Intermediate, Verified 05/07/18 19:27) skakes uncontrollable ceftriaxone [From Rocephin] Allergy (Verified 05/07/18 19:27) codeine [Codeine] Allergy (Verified 05/07/18 19:27) adhesive tape Adverse Reaction (Intermediate, Verified 05/07/18 19:27) peels her skin off hydromorphone [From Dilaudid] Adverse Reaction (Intermediate, Verified 05/07/18 19:27) Hallucinations pregabalin [From Lyrica] Adverse Reaction (Intermediate, Verified 05/07/18 19:27 ) Blurred vision Past Medical History - Social History Smoking Status: Unknown if Ever Smoked Family History: None Patient has suicidal ideation: No Patient has homicidal ideation: No - Past Medical History Cardiac Medical History: Reports: Hx Hypertension Pulmonary Medical History: Reports: Hx COPD Renal/ Medical History: Denies: Hx Peritoneal Dialysis Musculoskeletal Medical History: Reports Hx Arthritis Psychiatric Medical History: Denies: Hx Depression Past Surgical History: Reports: Hx Appendectomy, Hx Cholecystectomy, Hx Hysterectomy, Hx Orthopedic Surgery - Left proximal femoral hemiarthroplasty - Immunizations Hx Diphtheria, Pertussis, Tetanus Vaccination: No Review of Systems - Review of Systems Constitutional: denies: Chills, Fever EENT: No symptoms reported Cardiovascular: Palpitations, Orthopnea, Dyspnea. denies: Chest pain Respiratory: Cough, Hurts to breathe, Short of breath Gastrointestinal: No symptoms reported Genitourinary: No symptoms reported Musculoskeletal: No symptoms reported Skin: No symptoms reported Hematologic/Lymphatic: Easy bleeding, Easy bruising Neurological/Psychological: No symptoms reported -: Yes All other systems reviewed and negative Physical Exam - Vital signs Vitals: Resp 22 H 05/07/18 19:08 - General General appearance: Appears well, Alert In distress: Moderate - HEENT Head: Normocephalic, Atraumatic Eyes: Normal Pupils: PERRL - Respiratory Respiratory status: Respiratory distress, Labored, Tachypnea Chest status: Nontender Breath sounds: Rales Chest palpation: Normal - Cardiovascular Rhythm: Tachycardia - Abdominal Inspection: Normal Distension: No distension Bowel sounds: Normal Tenderness: Nontender Organomegaly: No organomegaly - Back Back: Normal, Nontender - Extremities General upper extremity: Normal inspection, Nontender, Normal color, Normal ROM , Normal temperature General lower extremity: Normal inspection, Nontender, Normal color, Normal ROM , Normal temperature, Normal weight bearing. No: Antonina's sign - Neurological Neuro grossly intact: Yes Cognition: Normal Orientation: AAOx4 [place] Coma Scale Eye Opening: Spontaneous [place] Coma Scale Verbal: Oriented [place] Coma Scale Motor: Obeys Commands [place] Coma Scale Total: 15 Speech: Normal Motor strength normal: LUE, RUE, LLE, RLE Sensory: Normal - Psychological Associated symptoms: Normal affect, Normal mood - Skin Skin Temperature: Warm Skin Moisture: Dry Skin Color: Ecchymosis Skin Turgor: Loose Course - Re-evaluation Re-evalutation: 05/08/18 02:21 I discussed patient care with the hospitalist on-call Dr. Gonzales. He will admit patient to the hospital for further evaluation and management. I also discussed starting heparin drip on the patient with the patient's daughter and son who were at her bedside. They want to hold off heparin for now until further notice. Patient is DO NOT RESUSCITATE according to her son and daughter. - Vital Signs Vital signs: Temp Pulse Resp BP Pulse Ox 98.0 F 26 H 134/67 H 96 05/07/18 19:27 05/08/18 01:01 05/08/18 01:01 05/08/18 01:01 - Laboratory Result Diagrams: 05/08/18 00:35 05/07/18 19:15 Laboratory results interpreted by me: 05/07/18 05/07/18 05/07/18 19:15 19:15 19:15 WBC 16.0 H RDW 14.9 H Seg Neutrophils % 83.6 H Lymphocytes % 6.1 L Absolute Neutrophils 13.4 H D-Dimer BUN 32 H Glucose 145 H Calcium 11.0 H AST 37 H NT-Pro-B Natriuret Pep 4220 H Urine Protein Urine Ketones Urine Blood Ur Leukocyte Esterase 05/07/18 05/07/18 19:15 19:42 WBC RDW Seg Neutrophils % Lymphocytes % Absolute Neutrophils D-Dimer 3.55 H BUN Glucose Calcium AST NT-Pro-B Natriuret Pep Urine Protein 30 H Urine Ketones TRACE H Urine Blood MODERATE H Ur Leukocyte Esterase LARGE H - Diagnostic Test Radiology reviewed: Image reviewed, Reports reviewed - EKG Interpretation by Me EKG shows normal: Sinus rhythm Rate: Tachycardia - 112 [place]/QRS: RBBB When compared to previous EKG there are: Changes noted Additional EKG results interpreted by me: 05/07/18 20:17 Wide QRS complex. Nonspecific ST and T wave changes. - Transfer of Care Notes: 05/08/18 02:23 Shortness of breath. Bilateral pulmonary embolism. Critical Care Note - Critical Care Note Total time excluding time spent on procedures (mins): 60 Comments: Time was spent reviewing labs and imaging studies, consults and multiple evaluations at the bedside. Discharge - Discharge Clinical Impression: Tachycardia, Bilateral pulmonary embolism UTI (urinary tract infection) Qualifiers: Urinary tract infection type: acute cystitis Hematuria presence: without hematuria Qualified Code(s): N30.00 - Acute cystitis without hematuria Pulmonary embolism Qualifiers: Pulmonary embolism type: other Chronicity: acute Acute cor pulmonale presence: without acute cor pulmonale Qualified Code(s): I26.99 - Other pulmonary embolism without acute cor pulmonale Condition: Critical Disposition: ADMITTED INPATIENT Admitting Provider: Dr Gonazles Unit Admitted: ICU
[2018-05-07] MEDS ORDERED: NORMAL SALINE 1000 ML 1,000 ML IV ONE (19:16)
[2018-05-07 19:37] LABS: ABSOLUTE BASOPHILS # (AUTO) 0.1 10^3/uL (0.0-0.2); ABSOLUTE EOSINOPHILS # (AUTO) 0.2 10^3/uL (0.0-0.6); ABSOLUTE MONOCYTES (AUTO) 1.4 10^3/uL (0.1-1.4); ABSOLUTE NEUT (AUTO) 13.4 10^3/uL (1.7-8.2); BASOPHILS % (AUTO) 0.6 % (0-2); EOSINOPHILS % (AUTO) 1.1 % (0-6); HEMATOCRIT 46.3 % (36.0-47.0); HEMOGLOBIN 15.4 g/dL (12.0-15.5); LYMPHOCYTES % (AUTO) 6.1 % (13-45); MEAN CORPUSCULAR HEMOGLOBIN 29.9 pg (27.0-33.4); MEAN CORPUSCULAR HGB CONC 33.3 g/dL (32.0-36.0); MEAN CORPUSCULAR VOLUME 90 fl (80-97); MONOCYTES % (AUTO) 8.6 % (3-13); PLATELET COUNT 299 10^3/uL (150-450); RED BLOOD COUNT 5.16 10^6/uL (3.72-5.28); RED CELL DISTRIBUTION WIDTH 14.9 % (11.5-14.0); SEGMENTED NEUTROPHILS % (AUTO) 83.6 % (42-78); TOTAL CELLS COUNTED % (AUTO) 100 %
[2018-05-07 19:42] LABS: INTERNATIONAL RATION (INR) 1.03
[2018-05-07 19:43] LABS: PARTIAL THROMBOPLASTIN TIME 25.2 SEC (23.5-35.8)
[2018-05-07 19:45] LABS: D-DIMER 3.55 ug/mL (0.00-0.50)
--- NOTE | 2018-05-07 19:46 | RADIOLOGY REPORT (SQ) ---
EXAM DESCRIPTION: CHEST SINGLE VIEW COMPLETED DATE/TIME: 05/07/2018 7:29 pm REASON FOR STUDY: SOB COMPARISON: 08/12/2017 None. EXAM PARAMETERS: NUMBER OF VIEWS: One view. TECHNIQUE: Single frontal radiographic view of the chest acquired. RADIATION DOSE: NA LIMITATIONS: None. FINDINGS: LUNGS AND PLEURA: Pulmonary vascular congestion. Possible mild pulmonary edema. MEDIASTINUM AND HILAR STRUCTURES: There is a large air-filled structure in midline in lower chest sug gestive of a large hiatal hernia. HEART AND VASCULAR STRUCTURES: Heart normal in size. Normal vasculature. BONES: Multiple old posterior rib fractures bilaterally. HARDWARE: None in the chest. OTHER: No other significant finding. IMPRESSION: Large hiatal hernia. Pulmonary vascular congestion. Cannot exclude mild pulmonary jenna a. TECHNICAL DOCUMENTATION: JOB ID: [id number] [employer]- All Rights Reserved Reading location - IP/workstation name: [email or web address]
[2018-05-07 19:52] LABS: VENOUS BLOOD BASE EXCESS 2.4 mmol/L; VENOUS BLOOD HCO3 29.3 mmol/L (20-32); VENOUS BLOOD PCO2 54.2 mmHg (35-63); VENOUS BLOOD PH 7.35 (7.30-7.42)
[2018-05-07 20:03] LABS: ALANINE AMINOTRANSFERASE 23 U/L (9-52); ALBUMIN 3.8 g/dL (3.5-5.0); ALKALINE PHOSPHATASE 112 U/L (38-126); ANION GAP 11 (5-19); ASPARTATE AMINO TRANSFERASE 37 U/L (14-36); BILIRUBIN,DIRECT 0.4 mg/dL (0.0-0.4); BILIRUBIN,TOTAL 0.8 mg/dL (0.2-1.3); BLOOD UREA NITROGEN 32 mg/dL (7-20); CARBON DIOXIDE 28 mmol/L (22-30); CHLORIDE 102 mmol/L (98-107); CREATINE KINASE 59 U/L (30-135); GLUCOSE 145 mg/dL (75-110); POTASSIUM 4.6 mmol/L (3.6-5.0); SODIUM 141.3 mmol/L (137-145)
[2018-05-07] MEDS ORDERED: LEVOFLOXACIN 750 MG/D5W RTU 750 MG/150 ML RTUPB IV ONE (20:15)
[2018-05-07 20:21] LABS: CREATINE KINASE MB 3.92 ng/mL (<4.55)
[2018-05-07 20:23] LABS: APPEARANCE,URINE CLOUDY; BILIRUBIN,URINE NEGATIVE (NEGATIVE); COLOR,URINE YELLOW; GLUCOSE, URINE NEGATIVE (NEGATIVE); KETONES,URINE TRACE mg/dL (NEGATIVE); LEUKOCYTE ESTERASE,URINE LARGE (NEGATIVE); NITRITE,URINE NEGATIVE (NEGATIVE); PROTEIN,URINE 30 mg/dL (NEGATIVE); URINE SPECIFIC GRAVITY 1.018; UROBILINOGEN,URINE NEGATIVE mg/dL (<2.0)
[2018-05-07 20:28] LABS: TROPONIN I 0.056 ng/mL
[2018-05-07] MEDS ORDERED: ASPIRIN 81 MG TABLET, CHEWABLE PO ONE (20:30)
--- NOTE | 2018-05-07 22:14 | EKG REPORT ---
SEVERITY:- ABNORMAL ECG - SINUS TACHYCARDIA NONSPECIFIC INTRAVENTRICULAR CONDUCTION DELAY : Confirmed by: Josie Etienne 07-May-2018 22:13:49
--- NOTE | 2018-05-07 22:22 | RADIOLOGY REPORT (SQ) ---
EXAM DESCRIPTION: CTA CHEST COMPLETED DATE/TIME: 05/07/2018 9:29 pm REASON FOR STUDY: SOB, Elevated D-Dimer(3.55) COMPARISON: 04/30/2018 TECHNIQUE: CT scan of the chest performed using helical scanning technique with dynamic intravenous contrast injection. Images reviewed with lung, soft tissue and bone windows. Reconstructed coronal and sagittal MPR images reviewed. Additional 3 dimensional post-processing performed to develop Maximal Intensity Projection images (SD P). All images stored on PACS. All CT scanners at this facility use dose modulation, iterative reconstruction, and/or weight based d osing when appropriate to reduce radiation dose to as low as reasonably achievable (ALARA). [facility]: Dose Right [facility]: CareDose [facility]: Dose Right [facility]: Teradose 4D [facility]: [employer] CONTRAST TYPE AND DOSE: contrast/concentration: Isovue 350.00 mg/ml; Total Contrast Delivered: 52.0 ml; Total Saline Delivered: 68.0 ml Contrast bolus optimized for the pulmonary arteries. Not diagnostic for the aorta. RENAL FUNCTION: BUN 32 creatinine 0.64 RADIATION DOSE: CT Rad equipment meets quality standard of care and radiation dose reduction techniq ues were employed. CTDIvol: 13.2 - 14.3 mGy. DLP: 467 mGy-cm. . LIMITATIONS: None. FINDINGS: LUNGS AND PLEURA: Peripheral emphysematous blebs. Mild centrilobular emphysematous change s. Ground-glass infiltrates bilaterally. AORTA AND GREAT VESSELS: Borderline size of the ascending aorta at 4 cm. HEART: No pericardial effusion. Moderate to marked coronary artery calcifications. PULMONARY ARTERIES: Small emboli are seen in right middle lobe and lower lobe pulmonary arteries. Em boli are present in left lower lobe pulmonary arteries HILAR AND MEDIASTINAL STRUCTURES: There is a very large hiatal hernia with most of the stomach above the diaphragm. HARDWARE: None in the chest. UPPER ABDOMEN: No significant findings. Limited exam. THYROID AND OTHER SOFT TISSUES: No masses. No adenopathy. BONES: Old compression changes. Increased dorsal kyphosis. Spondylosis. Rods are present in the th oracolumbar spine. 3D MIPS: Confirm above findings. OTHER: No other significant finding. IMPRESSION: 1. Pulmonary emboli as described. 2. Emphysematous changes. Ground-glass infiltrates likely suggests some degree interstitial edema. 3. Very large hiatal hernia. 4. Borderline aneurysmal dilatation of the ascending aorta at 4 cm. 5. Osseous findings as described. COMMENT: Quality ID # [id number]: Final reports with documentation of one or more dose reduction techniques (e.g., Automated exposure control, adjustment of the mA and/or kV according to patient size, use of iterative reconstruction technique) TECHNICAL DOCUMENTATION: JOB ID: [id number] [employer] All Rights Reserved Reading location - IP/workstation name: [email or web address]
[2018-05-07] MEDS ORDERED: ACETAMINOPHEN 325 MG TABLET PO ONE (22:25)
[2018-05-07] MEDS ORDERED: HEPARIN SODIUM,PORCINE/D5W 25,000 UNIT/250 ML RTUINJ IV PRN (23:18)
[2018-05-07] MEDS ORDERED: HEPARIN SOD (PORCINE) 1,000 UNIT/ML 10 ML VIAL IV ONE (23:18)
[2018-05-08 00:41] LABS: ABSOLUTE BASOPHILS # (AUTO) 0.1 10^3/uL (0.0-0.2); ABSOLUTE EOSINOPHILS # (AUTO) 0.2 10^3/uL (0.0-0.6); ABSOLUTE LYMPHOCYTES (AUTO) 0.9 10^3/uL (0.5-4.7); ABSOLUTE MONOCYTES (AUTO) 1.2 10^3/uL (0.1-1.4); ABSOLUTE NEUT (AUTO) 11.9 10^3/uL (1.7-8.2); BASOPHILS % (AUTO) 0.4 % (0-2); EOSINOPHILS % (AUTO) 1.4 % (0-6); HEMATOCRIT 41.4 % (36.0-47.0); LYMPHOCYTES % (AUTO) 6.5 % (13-45); MEAN CORPUSCULAR HEMOGLOBIN 30.3 pg (27.0-33.4); MEAN CORPUSCULAR HGB CONC 33.8 g/dL (32.0-36.0); MEAN CORPUSCULAR VOLUME 90 fl (80-97); MONOCYTES % (AUTO) 8.3 % (3-13); PLATELET COUNT 241 10^3/uL (150-450); RED BLOOD COUNT 4.62 10^6/uL (3.72-5.28); RED CELL DISTRIBUTION WIDTH 14.7 % (11.5-14.0); SEGMENTED NEUTROPHILS % (AUTO) 83.4 % (42-78); TOTAL CELLS COUNTED % (AUTO) 100 %; WHITE BLOOD COUNT 14.2 10^3/uL (4.0-10.5)
[2018-05-08 00:50] LABS: INTERNATIONAL RATION (INR) 1.09; PROTHROMBIN TIME 14.7 SEC (11.4-15.4)
[2018-05-08 01:03] LABS: PARTIAL THROMBOPLASTIN TIME 23.9 SEC (23.5-35.8)
[2018-05-08] MEDS ORDERED: HEPARIN SOD (PORCINE) 1,000 UNIT/ML 10 ML VIAL IV PRN (02:18)
--- NOTE | 2018-05-08 06:37 | PDOC H&P ---
History of Present Illness Admission Date/PCP: 05/07/18 23:40 DIANE BARRIENTOS MD Patient complains of: Shortness of breath History of Present Illness: MARJORIE GOMEZ is a 88 year old female tending to the emergency department secondary to shortness of breath. Patient states she fell on Saturday spontaneously and came to the emergency department on Saturday, was found to have fluid in her right lower lobe of her lung but no PE noted at this time. After being discharged home patient has been having decreased appetite and p.o. intake. Yesterday at 5:30 AM she woke up with severe difficulty breathing at which point she was given nebulized treatment as well as rescue inhaler which helped. Patient was back to sleep and later in the day around 3 PM she started having worsening of her shortness of breath. This time her nebulized treatment and inhaler did not help. Patient called her primary care physician who advised her to present to the emergency department for further workup and evaluation. Past Medical History Cardiac Medical History: Reports: Hypertension Pulmonary Medical History: Reports: Chronic Obstructive Pulmonary Disease (COPD) Musculoskeltal Medical History: Reports: Arthritis Psychiatric Medical History: Denies: Depression Past Surgical History Past Surgical History: Reports: Appendectomy, Cholecystectomy, Hysterectomy, Orthopedic Surgery - Left proximal femoral hemiarthroplasty Social History Information Source: Patient Lives with: Family Smoking Status: Unknown if Ever Smoked Frequency of Alcohol Use: None Hx Recreational Drug Use: No Hx Prescription Drug Abuse: No Family History Family History: None Parental Family History Reviewed: Yes Children Family History Reviewed: Yes Sibling(s) Family History Reviewed.: Yes Medication/Allergy Home Medications: Acetaminophen [Tylenol 325 mg Tablet] 650 mg PO Q4HP PRN 08/30/17 Azithromycin [Zithromax 250 mg Tablet] 500 mg PO DAILY MDD stop 09/0208/30/17 Bisacodyl [Dulcolax 10 mg Supp.rect] 10 mg [place] ASDIR PRN MDD See Patient Comments 08/30/17 Fluticasone/Salmeterol [Advair 250-50 Diskus 14 Dose/Diskus] 1 inh IH Q12 Furosemide [Lasix 20 mg Tablet] 20 mg PO DAILYP PRN 08/30/17 Guaifenesin [Mucinex Sr 600 mg Tablet.sa] 600 mg PO Q12 08/30/17 Ibuprofen [Motrin 400 mg Tablet] 400 mg PO Q8HP PRN 08/30/17 Levalbuterol HCl [Xopenex Neb 1.25 mg/3 ml Ampul] 1.25 mg NEB RTQ6HP PRN Lisinopril [Prinivil 10 mg Tablet] 10 mg PO DAILY 08/30/17 Magnesium Hydroxide [Milk of Magnesia 30 ml Udcup] 30 ml PO ASDIR PRN MDD See Patient Comments 08/30/17 Melatonin [Melatin] 3 mg PO QHS 08/30/17 Multivitamin [Tab-A-Bassem (Multiple Vitamin) Tablet] 1 tab PO DAILY 08/30/17 Na Phos,M-B/Na Phos,Di-Ba [Fleet Enema (Adult) 133 ml] 1 applic [place] ASDIR PRN MDD See Patient Comments 08/30/17 Omeprazole 40 mg PO Q12 08/30/17 Paroxetine HCl [Paxil] 10 mg PO DAILY 08/30/17 Potassium Chloride [Klor-Con 10 Meq Tablet.sa] 10 meq PO DAILY 08/30/17 Prednisone [Deltasone 5 mg Tablet] 7.5 mg PO DAILY 08/30/17 Promethazine HCl [Phenergan 25 mg Tablet] 25 mg PO Q6HP PRN MDD 3 tabs 08/30/17 Rivaroxaban [Xarelto 10 mg Tablet] 10 mg PO QHS 08/30/17 Tiotropium [place] [Spiriva] 1 puff IH DAILY 08/30/17 Tramadol HCl [Ultram 50 mg Tablet] 50 mg PO Q6HP PRN 08/30/17 Tramadol HCl [Ultram 50 mg Tablet] 50 mg PO ASDIR PRN 5 Days #20 tablet Allergies/Adverse Reactions: buspirone [From BuSpar] Allergy (Intermediate, Verified 05/07/18 19:27) skakes uncontrollable ceftriaxone [From Rocephin] Allergy (Verified 05/07/18 19:27) codeine [Codeine] Allergy (Verified 05/07/18 19:27) adhesive tape Adverse Reaction (Intermediate, Verified 05/07/18 19:27) peels her skin off hydromorphone [From Dilaudid] Adverse Reaction (Intermediate, Verified 05/07/18 19:27) Hallucinations pregabalin [From Lyrica] Adverse Reaction (Intermediate, Verified 05/07/18 19:27 ) Blurred vision Review of Systems Constitutional: PRESENT: weakness. ABSENT: chills, fever(s), headache(s), weight gain, weight loss Eyes: ABSENT: visual disturbances Ears: ABSENT: hearing changes Cardiovascular: PRESENT: dyspnea on exertion. ABSENT: chest pain, edema, orthropnea, palpitations Respiratory: PRESENT: dyspnea. ABSENT: cough, hemoptysis Gastrointestinal: ABSENT: abdominal pain, constipation, diarrhea, hematemesis, hematochezia, nausea, vomiting Genitourinary: ABSENT: dysuria, hematuria Musculoskeletal: ABSENT: joint swelling Integumentary: ABSENT: rash, wounds Neurological: ABSENT: abnormal gait, abnormal speech, confusion, dizziness, focal weakness, syncope Psychiatric: ABSENT: anxiety, depression, homidical ideation, suicidal ideation Endocrine: ABSENT: cold intolerance, heat intolerance, polydipsia, polyuria Hematologic/Lymphatic: ABSENT: easy bleeding, easy bruising Physical Exam Vital Signs: Temp Pulse Resp BP Pulse Ox 98.0 F 20 123/95 H 97 05/07/18 19:27 05/08/18 05:01 05/08/18 05:01 05/08/18 05:01 General appearance: PRESENT: no acute distress, thin Head exam: PRESENT: atraumatic, normocephalic Eye exam: PRESENT: conjunctiva pink, EOMI, PERRLA. ABSENT: scleral icterus Ear exam: PRESENT: normal external ear exam Mouth exam: PRESENT: moist, tongue midline Neck exam: ABSENT: carotid bruit, JVD, lymphadenopathy, thyromegaly Respiratory exam: PRESENT: clear to auscultation benji, decreased breath sounds. ABSENT: rales, rhonchi, wheezes Cardiovascular exam: PRESENT: gallop, tachycardia. ABSENT: diastolic murmur, rubs, systolic murmur Pulses: PRESENT: normal dorsalis pedis pul Vascular exam: PRESENT: normal capillary refill GI/Abdominal exam: PRESENT: normal bowel sounds, soft. ABSENT: distended, guarding, mass, organolmegaly, rebound, tenderness Rectal exam: PRESENT: deferred Extremities exam: PRESENT: full ROM. ABSENT: calf tenderness, clubbing, pedal edema Neurological exam: PRESENT: alert, awake, oriented to person, oriented to place , oriented to time, oriented to situation, CN II-XII grossly intact. ABSENT: motor sensory deficit Psychiatric exam: PRESENT: appropriate affect, normal mood. ABSENT: homicidal ideation, suicidal ideation Skin exam: PRESENT: dry, intact, warm. ABSENT: cyanosis, rash Results Laboratory Results: 05/08/18 00:35 05/08/18 00:35 WBC 14.2 H RBC 4.62 Hgb 14.0 Hct 41.4 MCV 90 MCH 30.3 MCHC 33.8 RDW 14.7 H Plt Count 241 Seg Neutrophils % 83.4 H Lymphocytes % 6.5 L Monocytes % 8.3 Eosinophils % 1.4 Basophils % 0.4 Absolute Neutrophils 11.9 H Absolute Lymphocytes 0.9 Absolute Monocytes 1.2 Absolute Eosinophils 0.2 Absolute Basophils 0.1 05/08/18 00:35 Troponin I 0.052 Impressions: Chest X-Ray 05/07/18 19:15 IMPRESSION: Large hiatal hernia. Pulmonary vascular congestion. Cannot exclude mild pulmonary edema. Chest/Abdomen CTA 05/07/18 20:16 IMPRESSION: 1. Pulmonary emboli as described. 2. Emphysematous changes. Ground-glass infiltrates likely suggests some degree interstitial edema. 3. Very large hiatal hernia. 4. Borderline aneurysmal dilatation of the ascending aorta at 4 cm. 5. Osseous findings as described. Assessment & Plan - Diagnosis (1) Bilateral pulmonary embolism Is this a current diagnosis for this admission?: Yes (2) UTI (urinary tract infection) Qualifiers: Urinary tract infection type: acute cystitis Hematuria presence: without hematuria Qualified Code(s): N30.00 - Acute cystitis without hematuria Is this a current diagnosis for this admission?: Yes (4) Hypertension Qualifiers: Is this a current diagnosis for this admission?: Yes Plan: Patient to be admitted to the intensive care unit for further workup and evaluation. Started on heparin bolus plus drip, to be continued as per protocol. Patient is found to have a 4 cm ascending thoracic aortic aneurysm which was not aware of before. States had a history of hypertension for which she has been on lisinopril, to be continued. We will continue to monitor patient's vitals closely. Cardiology as well as pulmonology consultation pending for this a.m. Patient started on Levaquin secondary to urinary tract infection. Urine cultures pending. We will continue to trend patient's troponins every 6 hours 3 oriented within normal limits. DuoNeb's every 4 as needed. Continue to monitor patient closely. Family is present at bedside. Patient is a DNR, DNI - Time Time Spent: 30 to 50 Minutes Critical Time spent with patient: 35 or more minutes Medications reviewed and adjusted accordingly: Yes Anticipated discharge: Home
[2018-05-08 06:53] LABS: HEMATOCRIT 40.1 % (36.0-47.0); HEMOGLOBIN 13.6 g/dL (12.0-15.5); MEAN CORPUSCULAR HEMOGLOBIN 29.9 pg (27.0-33.4); MEAN CORPUSCULAR HGB CONC 33.8 g/dL (32.0-36.0); MEAN CORPUSCULAR VOLUME 88 fl (80-97); PLATELET COUNT 239 10^3/uL (150-450); RED BLOOD COUNT 4.54 10^6/uL (3.72-5.28); WHITE BLOOD COUNT 13.8 10^3/uL (4.0-10.5)
[2018-05-08 07:26] LABS: ABSOLUTE LYMPHOCYTES# (MANUAL) 1.4 10^3/uL (0.5-4.7); ABSOLUTE NEUTROPHILS# (MANUAL) 10.9 10^3/uL (1.7-8.2); ANISOCYTOSIS SLIGHT; BASOPHILS % (MANUAL) 0 % (0-2); BURR CELLS SLIGHT; EOSINOPHILS % (MANUAL) 4 % (0-6); LYMPHOCYTES % (MANUAL) 7 % (13-45); MONOCYTES % (MANUAL) 7 % (3-13); OVALOCYTES 1+; PLATELET COMMENT ADEQUATE; POIKILOCYTOSIS 1+; SEGMENTED NEUTROPHILS % (MAN) 79 % (42-78); TOTAL CELLS COUNTED 100
[2018-05-08 08:30] LABS: ANION GAP 12 (5-19); BLOOD UREA NITROGEN 27 mg/dL (7-20); CARBON DIOXIDE 21 mmol/L (22-30); CHLORIDE 106 mmol/L (98-107); GLUCOSE 71 mg/dL (75-110); POTASSIUM 4.5 mmol/L (3.6-5.0); SODIUM 138.8 mmol/L (137-145)
[2018-05-08] MEDS: TRAMADOL HCL 50 MG TABLET PO PRN (10:07)
[2018-05-08] MEDS: PANTOPRAZOLE SODIUM 40 MG VIAL IV SCH ×2 (10:10→22:04)
--- NOTE | 2018-05-08 14:07 | PDOC PROGRESS REPORT ---
Subjective Progress Note for:: 05/08/18 Subjective:: MARJORIE GOMEZ is a 88 year old female tending to the emergency department secondary to shortness of breath. Patient states she fell on Saturday spontaneously and came to the emergency department on Saturday, was found to have fluid in her right lower lobe of her lung but no PE noted at this time. After being discharged home patient has been having decreased appetite and p.o. intake. Yesterday at 5:30 AM she woke up with severe difficulty breathing at which point she was given nebulized treatment as well as rescue inhaler which helped. Patient was back to sleep and later in the day around 3 PM she started having worsening of her shortness of breath. This time her nebulized treatment and inhaler did not help. Patient called her primary care physician who advised her to present to the emergency department for further workup and evaluation. Reason For Visit: PE,UTI Physical Exam Vital Signs: Temp Pulse Resp BP Pulse Ox 98.2 F 99 26 H 150/86 H 95 05/08/18 12:43 05/08/18 12:43 05/08/18 12:43 05/08/18 12:43 05/08/18 12:43 Intake & Output 05/07/18 05/08/18 05/09/18 06:59 06:59 06:59 Intake Total 31 Balance 31 Weight 42.638 kg General appearance: PRESENT: no acute distress, thin. ABSENT: other - Elderly frail and kyphotic Head exam: PRESENT: atraumatic Neck exam: ABSENT: carotid bruit, JVD, lymphadenopathy, thyromegaly Respiratory exam: PRESENT: accessory muscle use, crackles, rhonchi Cardiovascular exam: PRESENT: RRR. ABSENT: diastolic murmur, rubs, systolic murmur GI/Abdominal exam: PRESENT: normal bowel sounds, soft. ABSENT: distended, guarding, mass, organolmegaly, rebound, tenderness Rectal exam: PRESENT: deferred Neurological exam: PRESENT: alert, awake, oriented to person, oriented to place , oriented to time, oriented to situation, CN II-XII grossly intact. ABSENT: motor sensory deficit Results Laboratory Results: 05/08/18 06:39 05/08/18 06:39 05/08/18 05/08/18 05/08/18 00:35 06:39 06:39 WBC 14.2 H 13.8 H RBC 4.62 4.54 Hgb 14.0 13.6 Hct 41.4 40.1 MCV 90 88 MCH 30.3 29.9 MCHC 33.8 33.8 RDW 14.7 H 15.0 H Plt Count 241 239 Seg Neutrophils % 83.4 H Not Reportable Lymphocytes % 6.5 L Not Reportable Monocytes % 8.3 Not Reportable Eosinophils % 1.4 Not Reportable Basophils % 0.4 Not Reportable Absolute Neutrophils 11.9 H Not Reportable Absolute Lymphocytes 0.9 Not Reportable Absolute Monocytes 1.2 Not Reportable Absolute Eosinophils 0.2 Not Reportable Absolute Basophils 0.1 Not Reportable Sodium 138.8 Potassium 4.5 Chloride 106 Carbon Dioxide 21 L Anion Gap 12 BUN 27 H Creatinine 0.56 Est GFR ( Amer) > 60 Est GFR (Non-Af Amer) > 60 Glucose 71 L Calcium 10.0 05/08/18 05/08/18 00:35 06:39 Troponin I 0.052 0.063 Impressions: Chest X-Ray 05/07/18 19:15 IMPRESSION: Large hiatal hernia. Pulmonary vascular congestion. Cannot exclude mild pulmonary edema. Chest/Abdomen CTA 05/07/18 20:16 IMPRESSION: 1. Pulmonary emboli as described. 2. Emphysematous changes. Ground-glass infiltrates likely suggests some degree interstitial edema. 3. Very large hiatal hernia. 4. Borderline aneurysmal dilatation of the ascending aorta at 4 cm. 5. Osseous findings as described. Assessment & Plan - Diagnosis (1) Acute and chronic respiratory failure Qualifiers: Respiratory failure complication: hypoxia Qualified Code(s): J96.21 - Acute and chronic respiratory failure with hypoxia Is this a current diagnosis for this admission?: Yes Plan: Continue with an NIPPV (2) Bilateral pulmonary embolism Is this a current diagnosis for this admission?: Yes Plan: Patient is currently on heparin IV but I believe she can be switched to Lovenox or 1 of the direct oral anticoagulants if no contraindication. Will review and decide (3) Tachycardia Is this a current diagnosis for this admission?: Yes Plan: Secondary to acute respiratory illness as well as underlying lung disease (4) Thoracic aortic aneurysm without rupture Is this a current diagnosis for this admission?: Yes Plan: Follow-up as outpatient at this time there is really nothing that will be done (5) UTI (urinary tract infection) Qualifiers: Urinary tract infection type: acute cystitis Hematuria presence: without hematuria Qualified Code(s): N30.00 - Acute cystitis without hematuria Is this a current diagnosis for this admission?: Yes - Time Time Spent with patient: 15-24 minutes Medications reviewed and adjusted accordingly: Yes Anticipated discharge: Home Within: within 48 hours - Inpatient Certification Based on my medical assessment, after consideration of the patient's comorbidities, presenting symptoms, or acuity I expect that the services needed warrant INPATIENT care.: Yes Medical Necessity: Other - Need for anticoagulant - Plan Summary Plan Summary: Patient has old compression fractures also contributing to her pain. Will start on morphine as needed
[2018-05-08] MEDS: MORPHINE SULFATE 10 MG/ML INJ IV PRN ×3 (14:47→23:55)
[2018-05-08] MEDS: PROMETHAZINE HCL INJ 25 MG/1 ML VIAL IV PRN (16:37)
[2018-05-08] MEDS ORDERED: PROMETHAZINE HCL INJ 25 MG/1 ML VIAL ONE (16:37)
--- NOTE | 2018-05-08 20:30 | XCELERA REPORT ---
[address] [address] Transthoracic Echocardiogram Report Name: MARJORIE GOMEZ Age: 88 yrs Gender: Female : 1930 Patient Status: Inpatient Patient Location: [address] [place] [address] Study Date: 05/08/2018 08:35 AM Procedure: A two-dimensional transthoracic echocardiogram with color flow Doppler was performed. The study was technically difficult with many images being suboptimal in quality. Reason For Study: Abnormal EKG History: Abnormal EKG. Ordering Physician: JAYELNE RICHARDS Performed By: Preethi Loaiza Interpretation Summary The left ventricle is normal in size. There is normal left ventricular wall thickness. LV EF is > than 60% Left ventricular systolic function is normal. Doppler measurements suggest impaired left ventricular relaxation, which is associated with grade I/IV or mild diastolic dysfunction The left ventricular wall motion is normal. There is no thrombus. The left atrial size is normal. The right atrium is normal. There is no evidence of mitral valve prolapse. There is no vegetation seen on the mitral valve. There is no mitral valve stenosis. There is no mitral regurgitation noted. There is no aortic valve stenosis There is no LVOT obstruction. There is a mild to moderate amount of aortic regurgitation There is no tricuspid stenosis. There is a moderate to severe amount of tricuspid regurgitation There is moderate pulmonary hypertension by echo RSVP is equal to is 53 mm of Hg , with RA mean of 10. There is a trace amount of pulmonic regurgitation There is no pericardial effusion. MMode/2D Measurements & Calculations RVDd: 2.2 cm LVIDd: 3.1 cm FS: 31.8 % Ao root diam: 3.0 cm IVSd: 1.0 cm LVIDs: 2.1 cm EDV(Teich): 37.6 ml Ao root area: 7.2 cm2 LVPWd: 0.75 cm ESV(Teich): 14.5 ml EF(Teich): 61.3 % LA dimension: 2.2 cm Doppler Measurements & Calculations MV E max callum: MV P1/2t max callum: Ao V2 max: AI max callum: 89.8 cm/sec 166.8 cm/sec 135.7 cm/sec 407.7 cm/sec MV A max callum: MV P1/2t: 50.5 msec Ao max PG: AI max P.1 cm/sec 7.4 mmHg 66.5 mmHg MV E/A: 0.72 MVA(P1/2t): 4.4 cm2 AI dec slope: MV dec slope: 966.6 cm/sec2 400.4 cm/sec2 MV dec time: AI P1/2t: 0.22 sec 298.2 msec LV V1 max PG: PA V2 max: PI end-d callum: TR max callum: 4.7 mmHg 55.8 cm/sec 131.7 cm/sec 325.8 cm/sec LV V1 max: PA max P.2 mmHg TR max P.3 cm/sec 42.5 mmHg AV P1/2t-pr_phl: MV P1/2t-pr_phl: 298.3 msec 50.5 msec Left Ventricle The left ventricle is normal in size. There is normal left ventricular wall thickness. LV EF is > than 60%. Left ventricular systolic function is normal. Doppler measurements suggest impaired left ventricular relaxation, which is associated with grade I/IV or mild diastolic dysfunction. The left ventricular wall motion is normal. There is no thrombus. Right Ventricle The right ventricle is normal in size and function. Atria The right atrium is normal. The left atrial size is normal. Mitral Valve There is no evidence of mitral valve prolapse. There is no vegetation seen on the mitral valve. There is no mitral valve stenosis. There is no mitral regurgitation noted. Aortic Valve There is no aortic valvular vegetation. There is no aortic valve stenosis. There is no LVOT obstruction. There is a mild to moderate amount of aortic regurgitation. Tricuspid Valve There is no tricuspid stenosis. There is a moderate to severe amount of tricuspid regurgitation. There is moderate pulmonary hypertension by echo. RSVP is equal to is 53 mm of Hg , with RA mean of 10. Pulmonic Valve There is no pulmonic valvular stenosis. There is a trace amount of pulmonic regurgitation. Great Vessels The aortic root is normal size. Effusions There is no pericardial effusion. : JAYLENE RICHARDS > Mary Garza
[2018-05-08] MEDS: LEVOFLOXACIN 500 MG/D5W RTU 500 MG/100 ML RTUPB IV SCH (22:04)
[2018-05-08] MEDS ORDERED: FLUTICASONE/SALMETEROL DISKUS 250-50 MCG/DOSE IH ONE ×2 (22:15→23:25)
[2018-05-09] MEDS: MORPHINE SULFATE 10 MG/ML INJ IV PRN ×4 (04:07→19:26)
[2018-05-09 05:48] LABS: HEMATOCRIT 41.4 % (36.0-47.0); MEAN CORPUSCULAR HEMOGLOBIN 30.2 pg (27.0-33.4); MEAN CORPUSCULAR HGB CONC 33.8 g/dL (32.0-36.0); MEAN CORPUSCULAR VOLUME 89 fl (80-97); PLATELET COUNT 240 10^3/uL (150-450); RED BLOOD COUNT 4.65 10^6/uL (3.72-5.28); RED CELL DISTRIBUTION WIDTH 14.4 % (11.5-14.0); WHITE BLOOD COUNT 13.1 10^3/uL (4.0-10.5)
--- NOTE | 2018-05-09 10:51 | RADIOLOGY REPORT (SQ) ---
EXAM DESCRIPTION: CHEST SINGLE VIEW COMPLETED DATE/TIME: 05/09/2018 9:51 am REASON FOR STUDY: pleural effusion; chest trauma, right; pe COMPARISON: 05/07/2018 NUMBER OF VIEWS: One view. TECHNIQUE: Single frontal radiographic image of the chest acquired. LIMITATIONS: None. FINDINGS: LUNGS AND PLEURA: Improved aeration right lower lobe. Patient has known pulmonary emboli. No developing infiltrate. MEDIASTINUM AND HEART: Stable heart size and mediastinal structures. BONY STRUCTURES: No acute findings. HARDWARE: None. OTHER: Large hiatal hernia. IMPRESSION: COPD. Improved aeration right lower lobe. TECHNICAL DOCUMENTATION: JOB ID: [id number] Reading location - IP/workstation name: [facility]
[2018-05-09] MEDS: PANTOPRAZOLE SODIUM 40 MG VIAL IV SCH ×2 (12:34→22:16)
[2018-05-09] MEDS: FLUTICASONE/SALMETEROL DISKUS 250-50 MCG/DOSE IH SCH ×2 (12:36→22:16)
[2018-05-09] MEDS: TIOTROPIUM BROMIDE DPI 5 CAP/KIT (18 MCG/CAP) IH SCH (12:36)
--- NOTE | 2018-05-09 14:41 | CONSULTATION REPORT E ---
Consultation Report NAME: MARJORIE GOMEZ : 1930 AGE: 88Y DATE: 319 A TO: COLTEN LORENZO M.D. FROM: JAYLENE RICHARDS M.D. Requesting Physician REASON FOR CONSULTATION: The patient is a 88-year-old female who came in with increased shortness of breath yesterday, 05/07/2018. HISTORY OF PRESENT ILLNESS: The patient claimed that she fell on the floor about a week ago, sustaining contusion of the right chest. The patient complained that she started having episodic back pain since then. The patient went to the Emergency Room and subsequently it was found that there are fluids on the right lower lobe of her lung. No PE was noted. The patient was sent home but the patient later woke up early in the morning complaining of severe difficulty breathing. Another CT scan was ordered and the patient was found to have small emboli involving the right lower lobe. Currently, the patient claims that she feels slightly better. The patient was started on anticoagulation this morning. PAST MEDICAL HISTORY: 1. History of hypertension. 2. COPD. The patient takes Advair at home and some nebulizer treatment. 3. arthritis. SURGICAL HISTORY: 1. Appendectomy. 2. Cholecystectomy. 3. Hysterectomy. 4. Orthopedic surgery. 5. Left proximal femoral hemiarthroplasty. SOCIAL HISTORY: The patient lives with family and never smoked, drinks alcohol occasionally, denies illicit drug use. MEDICATIONS: At home include: 1. Tylenol. 2. Zithromax. 3. Dulcolax. 4. Advair 250. 5. Lasix. 6. Guaifenesin/Mucinex. 7. Motrin. 8. Xopenex inhaler. 9. Lisinopril. 10. Melatonin. 12. Omeprazole. 13. Paxil. 14. Potassium chloride. 15. Prednisone. 16. Xarelto 10 mg p.o. daily at bedtime. 17. Spiriva. 18. Tramadol. ALLERGIES: 1. BUSPAR. 2. ROCEPHIN. 3. CODEINE. 5. HYDROMORPHONE. 6. LYRICA. REVIEW OF SYSTEMS: CONSTITUTIONAL: Complained about weakness. Denies any fever or chills. EYES: No eye pain. No blurring of vision. No jaundice. EAR, NOSE AND THROAT: No ear drainage. No nasal discharge. RESPIRATORY: Complained about upper pleuritic chest pain and increasing shortness of breath prior to this admission. Denies any hemoptysis, increasing cough, or purulent sputum production. CARDIOVASCULAR: No angina noted. No palpitations. GENITOURINARY: No dysuria or hematuria. GASTROINTESTINAL: No nausea, vomiting, diarrhea. EXTREMITIES: No joint synovitis. PHYSICAL EXAMINATION: GENERAL: The patient appeared awake, alert, coherent, oriented x3. VITAL SIGNS: Temperature 98.3 with a T-max of 98.9, heart rate 75, blood pressure 150/66, respiratory rate 94, saturation is 96% on nasal cannula 5 L. EYES: No jaundice or pallor. EARS, NOSE, AND THROAT: No ear drainage. No nasal discharge. HEAD AND NECK: No scalp swelling or tenderness. Neck is supple. CHEST AND LUNGS: No wheezing. No rhonchi. No coarse crackles. CARDIOVASCULAR: S1 and S2 is distinct. Normal rate, regular rhythm. ABDOMEN: Flabby, positive bowel sounds, soft, nondistended, and nontender. EXTREMITIES: No joint swelling. No cellulitis. DIAGNOSTIC STUDIES: CBC done today showed white count of 13.8, hemoglobin 13.6, hematocrit 40.1, platelet count is 139. Chemistry done today showed sodium 138, potassium 4.5, chloride 106, CO2 is 31, BUN 27, glucose 71, calcium is 10. NT-BNP is 4220. ASSESSMENT: 1. Pulmonary embolism subsegmental right lower lobe, apparently stable hemodynamically. Recommend anticoagulation for at least 3 months. 2. Pleural effusion, right, small, after sustaining a chest contusion from a fall injury. Bleeding in the pleural space cannot be completely excluded. 3. Concomitant pneumonia cannot be completely excluded, right side. 4. COPD/emphysema, currently stable and not in exacerbation. The patient is on Advair and Spiriva at home. PLAN/RECOMMENDATION: 1. We will resume the Advair 250 diskhaler puff BID daily. 2. We recommend Spiriva inhaler 1 capsule daily. 3. We will check CBC tomorrow to evaluate for worsening anemia. 4. We will repeat the chest x-ray tomorrow as well to evaluate the pleural effusion. 5. Continue oxygen to give saturation 91-94%. DICTATING PHYSICIAN: COLTEN LORENZO MD,TRINA,MPH [id number] PHY#: [id number] ID: [id number] JOB#: [id number] ACCT: [id number] cc:COLTEN LORENZO M.D. > DREAD
--- NOTE | 2018-05-09 14:51 | PDOC PROGRESS REPORT ---
Subjective Progress Note for:: 05/09/18 Subjective:: MARJORIE GOMEZ is a 88 year old female tending to the emergency department secondary to shortness of breath. Patient states she fell on Saturday spontaneously and came to the emergency department on Saturday, was found to have fluid in her right lower lobe of her lung but no PE noted at this time. After being discharged home patient has been having decreased appetite and p.o. intake. Yesterday at 5:30 AM she woke up with severe difficulty breathing at which point she was given nebulized treatment as well as rescue inhaler which helped. Patient was back to sleep and later in the day around 3 PM she started having worsening of her shortness of breath. This time her nebulized treatment and inhaler did not help. Patient called her primary care physician who advised her to present to the emergency department for further workup and evaluation. Reason For Visit: PE,UTI Physical Exam Vital Signs: Temp Pulse Resp BP Pulse Ox 98.3 F 103 H 24 H 102/71 93 05/09/18 11:36 05/09/18 11:36 05/09/18 11:36 05/09/18 11:36 05/09/18 11:36 Intake & Output 05/08/18 05/09/18 05/10/18 06:59 06:59 06:59 Intake Total 181 50 Output Total 0 Balance 181 50 Weight 47.5 kg General appearance: PRESENT: no acute distress, thin, other - elderly and frail Head exam: PRESENT: atraumatic, normocephalic Eye exam: PRESENT: conjunctiva pink, EOMI, PERRLA. ABSENT: scleral icterus Ear exam: PRESENT: normal external ear exam Mouth exam: PRESENT: moist, tongue midline Neck exam: ABSENT: carotid bruit, JVD, lymphadenopathy, thyromegaly Respiratory exam: PRESENT: chest wall tenderness - R rib cage, decreased breath sounds. ABSENT: rales, rhonchi, wheezes Cardiovascular exam: PRESENT: RRR. ABSENT: diastolic murmur, rubs, systolic murmur Pulses: PRESENT: normal dorsalis pedis pul Vascular exam: PRESENT: normal capillary refill GI/Abdominal exam: PRESENT: normal bowel sounds, soft. ABSENT: distended, guarding, mass, organolmegaly, rebound, tenderness Rectal exam: PRESENT: deferred Extremities exam: PRESENT: full ROM. ABSENT: calf tenderness, clubbing, pedal edema Neurological exam: PRESENT: alert, awake, oriented to person, oriented to place , oriented to time, oriented to situation, CN II-XII grossly intact. ABSENT: motor sensory deficit Psychiatric exam: PRESENT: appropriate affect, normal mood. ABSENT: homicidal ideation, suicidal ideation Skin exam: PRESENT: dry, intact, warm. ABSENT: cyanosis, rash Results Laboratory Results: 05/09/18 05:08 05/08/18 06:39 05/09/18 05:08 WBC 13.1 H RBC 4.65 Hgb 14.0 Hct 41.4 MCV 89 MCH 30.2 MCHC 33.8 RDW 14.4 H Plt Count 240 05/08/18 05/08/18 05/08/18 00:35 06:39 14:21 Troponin I 0.052 0.063 0.048 Impressions: Chest/Abdomen CTA 05/07/18 20:16 IMPRESSION: 1. Pulmonary emboli as described. 2. Emphysematous changes. Ground-glass infiltrates likely suggests some degree interstitial edema. 3. Very large hiatal hernia. 4. Borderline aneurysmal dilatation of the ascending aorta at 4 cm. 5. Osseous findings as described. Chest X-Ray 05/09/18 09:00 IMPRESSION: COPD. Improved aeration right lower lobe. Assessment & Plan - Diagnosis (1) Acute and chronic respiratory failure Qualifiers: Respiratory failure complication: hypoxia Qualified Code(s): J96.21 - Acute and chronic respiratory failure with hypoxia Is this a current diagnosis for this admission?: Yes Plan: Acute likely from PE. Echo was normal. Cont oxygen support, spirometry (2) Bilateral pulmonary embolism Is this a current diagnosis for this admission?: Yes Plan: Will dc heparin, start Xarelto (3) Tachycardia Is this a current diagnosis for this admission?: Yes (4) Thoracic aortic aneurysm without rupture Is this a current diagnosis for this admission?: Yes Plan: Follow-up as outpatient at this time there is really nothing that will be done (5) UTI (urinary tract infection) Qualifiers: Urinary tract infection type: acute cystitis Hematuria presence: without hematuria Qualified Code(s): N30.00 - Acute cystitis without hematuria Is this a current diagnosis for this admission?: Yes Plan: Follow up and adjust based on culture results - Time Time Spent with patient: 15-24 minutes Anticipated discharge: Home Within: within 72 hours - Inpatient Certification Based on my medical assessment, after consideration of the patient's comorbidities, presenting symptoms, or acuity I expect that the services needed warrant INPATIENT care.: Yes Medical Necessity: Significant Comorbidiites Make Outpatient Treatment Too Risky , Need for Pain Control
[2018-05-09] MEDS: RIVAROXABAN 15 MG TABLET PO SCH (19:26)
[2018-05-09] MEDS ORDERED: ALBUTEROL SULFATE 0.083% NEB 2.5 MG/3 ML AMPUL NEB PRN (19:40)
[2018-05-09] MEDS: LEVOFLOXACIN 500 MG/D5W RTU 500 MG/100 ML RTUPB IV SCH (22:16)
--- NOTE | 2018-05-09 22:26 | PROGRESS NOTE E ---
Progress Note NAME: MARJORIE GOMEZ : 1930 AGE: 88Y DATE: 05/09/2018 ROOM: 319 SUBJECTIVE: The patient is an 88-year-old female who came in with pulmonary embolism, right lower lobe segmental. The patient claimed that she is feeling a lot better. Denies any fever or chills. Denies any increased cough or purulent sputum production. No hemoptysis. The patient was changed to Xarelto this morning up to 20 mg p.o. b.i.d. The patient was started on Spiriva inhaler and Advair 250 DiskHaler yesterday, and appeared to tolerate it. The patient claimed that she is taking albuterol nebulizer treatment at home 2-3 times a day, every day. OBJECTIVE: GENERAL: The patient is awake, alert, coherent, afebrile, not in apparent Severe respiratory distress. EYES: No jaundice or pallor. EARS, NOSE, AND THROAT: No ear drainage. No nasal discharge. CHEST AND LUNGS: No wheezing, no rhonchi, no coarse crackles. CARDIOVASCULAR: S1, S2 distinct. Normal rate, regular rhythm. ABDOMEN: Flabby, positive bowel sounds, soft, nondistended, nontender. EXTREMITIES: No joint swelling and no cellulitis. LABORATORY DATA: CBC done today showed a white count of 13.1, hemoglobin is 14, hematocrit is 41.4, platelet count is 140,000. ASSESSMENT: 1. PULMONARY EMBOLISM; PULMONARY ARTERY SEGMENT RIGHT LOWER LOBE. Currently hemodynamically stable and recently started on Xarelto. 2. COPD/ASTHMA. Currently not in apparent bronchospasm. PLAN/RECOMMENDATION: 1. Continue the Advair and Spiriva inhalers. 2. We will provide patient with DuoNeb nebulizer treatment every 8 hours per patient's request. 3. We will give the patient albuterol nebulizer treatment every 8 hours p.r.n. for breakthrough attack or severe bronchospasm or COPD exacerbation. DICTATING PHYSICIAN: COLTEN LORENZO MD,TRINA,MPH [id number] [id number] PHY#: [id number] ID: [id number] JOB#: [id number] ACCT: [id number] cc: > MTDD
[2018-05-09] MEDS: TRAMADOL HCL 50 MG TABLET PO PRN (22:59)
[2018-05-09] MEDS: IPRATROPIUM/ALBUTEROL 0.5-2.5 MG/3 ML AMPUL NEB SCH (23:49)
[2018-05-10] MEDS: RIVAROXABAN 15 MG TABLET PO SCH ×2 (08:48→18:15)
[2018-05-10] MEDS: MORPHINE SULFATE 10 MG/ML INJ IV PRN ×4 (08:48→18:15)
[2018-05-10] MEDS: IPRATROPIUM/ALBUTEROL 0.5-2.5 MG/3 ML AMPUL NEB SCH ×2 (08:57→15:43)
[2018-05-10] MEDS: TRAMADOL HCL 50 MG TABLET PO PRN ×2 (09:39→22:05)
[2018-05-10] MEDS: TIOTROPIUM BROMIDE DPI 5 CAP/KIT (18 MCG/CAP) IH SCH (14:14)
[2018-05-10] MEDS ORDERED: PANTOPRAZOLE SODIUM 40 MG VIAL IV ONE (14:30)
[2018-05-10] MEDS ORDERED: NORMAL SALINE 1000 ML 1,000 ML IV PRN (14:30)
[2018-05-10] MEDS ORDERED: MEGESTROL ACETATE SUSP 400 MG/10 ML UDCUP PO ONE (15:00)
[2018-05-10] MEDS: LIDOCAINE 5% (700 MG) TRANSDERMAL ADH..PATCH TP SCH (15:20)
--- NOTE | 2018-05-10 16:16 | PROGRESS NOTE E ---
Progress Note NAME: MARJORIE GOMEZ : 1930 AGE: 88Y DATE: 05/10/2018 ROOM: 319 SUBJECTIVE: The patient is lying in bed. She states that she has a headache this morning. She compares it to her migraine headaches that she has. The patient denies any nausea, vomiting, diarrhea. No shortness of breath, dizziness, or chest pain. The patient admits to having a quite poor appetite, which has been an ongoing issue, and the patient does not voice any other concerns at this time. REVIEW OF SYSTEMS: The rest of the review of systems is negative. MEDICATIONS: Medications have been reviewed. OBJECTIVE: GENERAL: The patient is an 88-year-old female who is awake, alert and oriented to person, place, time, and situation. She is verbal, conversational, does not appear to be in any acute distress. VITAL SIGNS: As follows: Temperature is 98.2, pulse 103, respirations 20, blood pressure is 135/53, oxygen saturation is 98% on 2 liters nasal cannula. SKIN: Warm and dry. No rash. Not diaphoretic. HEENT: Pupils equal, round, reactive to light and accommodation. Conjunctiva is pink. NECK: No evidence of JVP. CARDIOVASCULAR SYSTEM: Heart is regular. No rub. CHEST: Diminished, symmetrical, unlabored. ABDOMEN: Soft, nontender, and nondistended. BACK: No CVA tenderness, sacral edema. EXTREMITIES: No clubbing, cyanosis. PSYCHIATRIC: Appropriate affect. Pleasant mood. DIAGNOSTICS: Lab values are as follows: Hematology obtained on 05/09/2018; WBCs are 13.1, hemoglobin is 14.0, hematocrit is 41.4, platelet count is 240,000. Chemistry obtained on 05/08/2018: Sodium is 138, potassium 4.5, chloride is 106, carbon dioxide 21, BUN 27, creatinine is 0.56, glucose 71, calcium is 10.0. IMPRESSION AND PLAN: 1. BILATERAL PULMONARY EMBOLI. The patient is much improved. She has been transitioned over to Xarelto after 3 days' treatment with Lovenox, overall much improved. 2. ACUTE ON CHRONIC HYPOXEMIC RESPIRATORY FAILURE. This is secondary to number 1. The patient is status post rib fractures which most likely resulted in number 1. Echocardiogram was not impressive. We will continue to wean O2 and encourage incentive spirometry and follow. 3. THORACIC AORTIC ANEURYSM WITHOUT RUPTURE. Noted to be stable. 4. URINARY TRACT INFECTION. Currently awaiting cultures and sensitivity. Will continue Levaquin but transition to p.o. at this point. 5. MALNUTRITION WITH A BMI OF 19. This is protein calorie malnutrition. The patient has had very poor oral intake for quite a while now. I have discussed off-label use of Megace, and family and patient are supportive of this. I will begin dosing. If the patient does not have significant improvement, we will add Remeron at bedtime. DISPOSITION: The patient is a DO NOT RESUSCITATE/DO NOT INTUBATE. Pending patient's symptomatology and diagnostic findings, we will re-evaluate in the a.m. Time spent on this followup including assessment, plan, physical examination, patient education, review of records, family meeting is 25 minutes. DICTATING PHYSICIAN: JACQUES JESUS NP [id number] PHY#: [id number] ID: [id number] JOB#: [id number] ACCT: [id number] cc:JACQUES JESUS NP >
[2018-05-10] MEDS ORDERED: LEVOFLOXACIN 500 MG TABLET PO SCH (18:00)
[2018-05-10] MEDS: PROMETHAZINE HCL INJ 25 MG/1 ML VIAL IV PRN (18:15)
[2018-05-10] MEDS: FLUTICASONE/SALMETEROL DISKUS 250-50 MCG/DOSE IH SCH (22:06)
[2018-05-11] MEDS: IPRATROPIUM/ALBUTEROL 0.5-2.5 MG/3 ML AMPUL NEB SCH ×3 (00:06→16:16)
[2018-05-11] MEDS: TRAMADOL HCL 50 MG TABLET PO PRN ×3 (01:57→14:20)
[2018-05-11] MEDS: LANSOPRAZOLE 30 MG TAB.RAP.DR PO SCH (06:53)
[2018-05-11] MEDS: MORPHINE SULFATE 10 MG/ML INJ IV PRN ×3 (08:12→19:07)
[2018-05-11] MEDS: RIVAROXABAN 15 MG TABLET PO SCH ×2 (08:16→19:07)
[2018-05-11] MEDS ORDERED: LEVOFLOXACIN 500 MG TABLET PO SCH (10:00)
[2018-05-11] MEDS ORDERED: (PENDING PHARMACY ID) (Paroxetine Hcl [Paxil] 10 MG) PO SCH (10:00)
[2018-05-11] MEDS: FLUTICASONE/SALMETEROL DISKUS 250-50 MCG/DOSE IH SCH ×2 (10:43→23:45)
[2018-05-11] MEDS: PREDNISONE 5 MG TABLET PO SCH (10:46)
[2018-05-11] MEDS: TIOTROPIUM BROMIDE DPI 5 CAP/KIT (18 MCG/CAP) IH SCH (10:46)
[2018-05-11] MEDS: LISINOPRIL 10 MG TABLET PO SCH (10:46)
[2018-05-11] MEDS: PAROXETINE HCL 20 MG TABLET PO SCH (10:47)
[2018-05-11] MEDS: MEGESTROL ACETATE SUSP 400 MG/10 ML UDCUP PO SCH (12:49)
[2018-05-11] MEDS: LIDOCAINE 5% (700 MG) TRANSDERMAL ADH..PATCH TP SCH (12:49)
[2018-05-11] MEDS: AMPICILLIN SODIUM 1 GM in NORMAL SALINE 50 ML IV SCH ×2 (19:12→23:46)
--- NOTE | 2018-05-11 20:16 | PROGRESS NOTE E ---
Progress Note NAME: MARJORIE GOMEZ : 1930 AGE: 88Y DATE: 05/11/2018 ROOM: 319 SUBJECTIVE: The patient is lying in bed. She states that she feels better today in comparison to yesterday. Still has intermittent headache which she describes as migraine-like. The patient has been seen by pulmonary today as well. She denies any nausea, vomiting. Has had some confusion. Urine culture reveals an Enterococcus that is actually resistant to Levaquin and the patient does not voice any specific concerns at this time. BRIEF HISTORY: The patient is an 88-year-old female that presented to the Emergency Department with shortness of breath and was found to have a pulmonary embolism and a urinary tract infection. The patient had been treated and released from the Emergency Department after sustaining a fall with rib fractures the week before, then was absolutely adamant for discharge and subsequently returned. The patient has been seen by pulmonary regarding her findings of PE and has been started on anticoagulation and is stable for discharge from a pulmonary standpoint. The patient, additionally, has had a large hiatal hernia which makes eating difficult for her. This is a known thing for the patient. The patient was started as well on an appetite stimulant. The patient does have a thoracic aneurysm which is known, not a candidate for any form of repair. The patient's has just been started on ampicillin. The patient is adamant that she tolerates penicillins without a problem but cannot take Rocephin. No other concerns are voiced at this time. REVIEW OF SYSTEMS: Rest of review of systems negative. MEDICATIONS: Medications reviewed. OBJECTIVE: GENERAL: The patient is an 88-year-old female who is awake, alert. She is oriented to person, place, time and situation, just slightly confused about details. Does not appear to be distressed. VITAL SIGNS: As follows: Temperature is 98.1, pulse 102, respirations 20, blood pressure 113/55, oxygen saturation is 98% on 3 l nasal cannula. SKIN: Warm and dry. No rash. She is not diaphoretic. HEENT: Pupils equal, round, reactive to light and accommodation. Conjunctiva is pink. NECK: There is no evidence of JVP. CARDIOVASCULAR: Heart is regular. There is no murmur or rub. CHEST: Clear, symmetrical, unlabored. ABDOMEN: Soft, nontender, nondistended. BACK: No CVA tenderness, sacral edema. EXTREMITIES: No clubbing, cyanosis, edema. PSYCHIATRIC: Appropriate affect. Pleasant mood. DIAGNOSTICS: Lab values are as follows: Hematology obtained on 05/09/2018; WBCs are 13.1; hemoglobin; hematocrit is 41.4; platelet count is 240,000. Chemistry obtained on 05/08/2018: Sodium is 138, potassium 4.5, chloride is carbon dioxide 21, BUN 27, creatinine is 0.56, glucose 71, calcium is 10. Troponin 0.048. IMPRESSION AND PLAN: 1. BILATERAL PULMONARY EMBOLI. The patient is much improved. She is in transition over to Xarelto. Pulmonary has signed off. 2. ACUTE ON CHRONIC HYPOXEMIC RESPIRATORY FAILURE. THIS IS SECONDARY TO BILATERAL PULMONARY EMBOLISM AND THE PATIENT'S ATELECTASIS ASSOCIATED WITH HER FALL AND RIB FRACTURES. Echo was not impressive. We will continue to wean O2 and encourage incentive spirometry and follow. She does have an underlying history of COPD as well. 3. 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 NOT A CANDIDATE FOR INTERVENTION. 4. ENTEROCOCCUS URINARY TRACT INFECTION. This is sensitive to only ampicillin and vancomycin at this point. The patient lists Rocephin as an allergy but is adamant that she can tolerate penicillins. Therefore, will start the patient on ampicillin and monitor closely. 5. MALNUTRITION WITH A BMI OF 19. PROTEIN CALORIE MALNUTRITION WITH A PATIENT WITH A VERY POOR ORAL INTAKE. She is agreeable to off-label use of Megace. Family is supportive of this as well and will follow. DISPOSITION: The patient is a DNR/DNI. Pending patient's symptomatology and diagnostic findings, will re-evaluate in the a.m. Have encouraged the patient to participate with physical therapy to get her moving. TIME SPENT: On this followup including assessment, plan, physical examination, patient education, review of records, and specialty collaboration is 30 minutes. DICTATING PHYSICIAN: JACQUES JESUS NP [id number] PHY#: [id number] ID: [id number] JOB#: [id number] ACCT: [id number] cc: > [facility]
[2018-05-12] MEDS: IPRATROPIUM/ALBUTEROL 0.5-2.5 MG/3 ML AMPUL NEB SCH ×3 (00:43→16:22)
[2018-05-12] MEDS: LANSOPRAZOLE 30 MG TAB.RAP.DR PO SCH (06:41)
[2018-05-12] MEDS: AMPICILLIN SODIUM 1 GM in NORMAL SALINE 50 ML IV SCH ×3 (06:41→18:12)
[2018-05-12] MEDS: MORPHINE SULFATE 10 MG/ML INJ IV PRN (08:18)
[2018-05-12] MEDS: RIVAROXABAN 15 MG TABLET PO SCH ×2 (08:23→16:45)
[2018-05-12] MEDS: FLUTICASONE/SALMETEROL DISKUS 250-50 MCG/DOSE IH SCH ×2 (09:31→21:26)
[2018-05-12] MEDS: TIOTROPIUM BROMIDE DPI 5 CAP/KIT (18 MCG/CAP) IH SCH (09:32)
[2018-05-12] MEDS: PREDNISONE 5 MG TABLET PO SCH (09:32)
[2018-05-12] MEDS: PAROXETINE HCL 20 MG TABLET PO SCH (09:33)
[2018-05-12] MEDS: LIDOCAINE 5% (700 MG) TRANSDERMAL ADH..PATCH TP SCH (09:33)
[2018-05-12] MEDS: LISINOPRIL 10 MG TABLET PO SCH (09:33)
[2018-05-12] MEDS: MEGESTROL ACETATE SUSP 400 MG/10 ML UDCUP PO SCH (09:33)
[2018-05-12] MEDS: TRAMADOL HCL 50 MG TABLET PO PRN ×3 (11:42→22:32)
[2018-05-12] MEDS ORDERED: ONDANSETRON HCL INJ/PF 4 MG/2 ML SDV IV PRN (14:49)
[2018-05-12] MEDS ORDERED: POLYETHYLENE GLYCOL 3350 POWDER 17 GM/1 PACKET PO PRN (14:49)
[2018-05-12] MEDS ORDERED: PSYLLIUM SEED-SF 5.85 GM PACKET PO PRN (14:50)
--- NOTE | 2018-05-12 16:07 | PDOC DISCHARGE SUMMARY ---
General - Admit/Disc Date/PCP Admission Date/Primary Care Provider: 05/07/18 23:40 DIANE BARRIENTOS MD Discharge Date: 05/13/18 - Discharge Diagnosis (1) Bilateral pulmonary embolism Is this a current diagnosis for this admission?: Yes (2) Tachycardia Is this a current diagnosis for this admission?: Yes (3) UTI (urinary tract infection) Is this a current diagnosis for this admission?: Yes (5) Hypertension Is this a current diagnosis for this admission?: Yes - Additional Information Resuscitation Status: Do Not Resuscitate Discharge Diet: As Tolerated Discharge Activity: Activity As Tolerated Prescriptions: Ipratropium/Albuterol Sulfate [Combivent Respimat Inhal [place]] 4 gm IH Q4 PRN # 1 mist.inhal PRN Reason: Nitrofurantoin Macrocrystal [Nitrofurantoin] 100 mg PO Q6 #28 capsule Rivaroxaban [Xarelto 15 mg Tablet] 15 mg PO BIDBS #42 tablet Tiotropium [place] [Spiriva Handihaler 5 Cap/Kit (18 Mcg/Cap)] 1 cap IH DAILY # 1 kit Home Medications: Albuterol Sulfate [Albuterol Sulfate 2.5mg/3 mL] 1 vial NEB Q4HP PRN 05/08/18 Fluticasone/Salmeterol [Advair 250-50 Diskus 14 Dose/Diskus] 1 puff IH Q12 05/08 Lisinopril [Zestril] 10 mg PO DAILY 05/08/18 Omeprazole 40 mg PO DAILY 05/08/18 Paroxetine HCl [Paxil] 10 mg PO DAILY 05/08/18 Prednisone [Deltasone 5 mg Tablet] 5 mg PO DAILY 05/08/18 Tramadol HCl [Ultram 50 mg Tablet] 50 mg PO Q4HP PRN 05/08/18 Ipratropium/Albuterol Sulfate [Combivent Respimat Inhal [place]] 4 gm IH Q4 PRN # 1 mist.inhal 05/12/18 Nitrofurantoin Macrocrystal [Nitrofurantoin] 100 mg PO Q6 #28 capsule 05/12/18 Rivaroxaban [Xarelto 15 mg Tablet] 15 mg PO BIDBS #42 tablet 05/12/18 Tiotropium [place] [Spiriva Handihaler 5 Cap/Kit (18 Mcg/Cap)] 1 cap IH DAILY # 1 kit 05/12/18 History of Present Illness History of Present Illness: AMRJORIE GOMEZ is a 88 year old female tending to the emergency department secondary to shortness of breath. Patient states she fell on Saturday spontaneously and came to the emergency department on Saturday, was found to have fluid in her right lower lobe of her lung but no PE noted at this time. After being discharged home patient has been having decreased appetite and p.o. intake. Yesterday at 5:30 AM she woke up with severe difficulty breathing at which point she was given nebulized treatment as well as rescue inhaler which helped. Patient was back to sleep and later in the day around 3 PM she started having worsening of her shortness of breath. This time her nebulized treatment and inhaler did not help. Patient called her primary care physician who advised her to present to the emergency department for further workup and evaluation. Hospital Course Hospital Course: Patient was admitted to the hospitalist service and pulmonology was consulted. Patient was started on anticoagulation and switched to Xarelto and tolerated that very well. She will be discharged on Xarelto 15 mg twice daily for 3 weeks then 20 mg daily for at least 3 a month. She is very deconditioned and will likely require rehabilitation. She refused to go to inpatient rehab and preferred to go home with home physical therapy which we will arrange. She has enterococcus UTI and was started on ampicillin and will be discharged on nitrofurantoin. She prefers to go home first thing in the morning which is okay by me. I discussed with the track worker and nurse. Discussed with the patient and her daughter. Everybody is in agreement. Physical Exam Vital Signs: Temp Pulse Resp BP Pulse Ox 98.4 F 103 H 21 H 138/68 H 95 05/12/18 15:39 05/12/18 15:39 05/12/18 15:39 05/12/18 15:39 05/12/18 15:39 Intake & Output 05/11/18 05/12/18 05/13/18 06:59 06:59 06:59 Intake Total 200 350 437 Balance 200 350 437 Weight 107 lb 5.842 oz 103 lb 13.404 oz General appearance: PRESENT: thin Head exam: PRESENT: atraumatic Mouth exam: PRESENT: moist Throat exam: ABSENT: post pharyngeal erythema Neck exam: ABSENT: meningismus, thyromegaly Respiratory exam: PRESENT: clear to auscultation benji Cardiovascular exam: PRESENT: RRR GI/Abdominal exam: PRESENT: hernia, normal bowel sounds. ABSENT: mass Neurological exam: PRESENT: alert, altered, awake, oriented to person, oriented to place, oriented to time, oriented to situation Results Laboratory Results: 05/09/18 05:08 05/08/18 06:39 05/08/18 05/08/18 05/08/18 00:35 06:39 14:21 Troponin I 0.052 0.063 0.048 Impressions: Chest/Abdomen CTA 05/07/18 20:16 IMPRESSION: 1. Pulmonary emboli as described. 2. Emphysematous changes. Ground-glass infiltrates likely suggests some degree interstitial edema. 3. Very large hiatal hernia. 4. Borderline aneurysmal dilatation of the ascending aorta at 4 cm. 5. Osseous findings as described. Chest X-Ray 05/09/18 09:00 IMPRESSION: COPD. Improved aeration right lower lobe. Qualifiers - * PATIENT BEING DISCHARGED WITH ANY OF THE FOLLOWING DIAGNOSIS: No
[2018-05-13] MEDS: IPRATROPIUM/ALBUTEROL 0.5-2.5 MG/3 ML AMPUL NEB SCH ×2 (00:24→08:14)
[2018-05-13] MEDS: AMPICILLIN SODIUM 1 GM in NORMAL SALINE 50 ML IV SCH ×3 (00:38→15:47)
[2018-05-13] MEDS: LANSOPRAZOLE 30 MG TAB.RAP.DR PO SCH (05:26)
--- NOTE | 2018-05-13 08:20 | PROGRESS NOTE E ---
Progress Note NAME: MARJORIE GOMEZ : 1930 AGE: 88Y DATE: 05/11/2018 ROOM: 319 SUBJECTIVE: Patient is an 88-year-old female who came in after sustaining a chest injury after a fall and complained about chest pain and shortness of breath. Chest CTA showed pulmonary embolism subsegmental arteries, right lower lobe. Patient was started on Xarelto 2 days ago, appeared to be doing well, denies any increased cough or purulent sputum production. No hemoptysis. No chest pain. No increased shortness of breath. No hematuria or blood in the stool. No fever or children. OBJECTIVE: GENERAL: Patient is awake, alert, coherent, oriented, afebrile, and not in apparent respiratory distress. VITAL SIGNS: Temperature of 98.1, with T-max of 98.7, heart rate is 99, blood pressure 113/55, respiratory rate 17, oxygen saturation 98% on 3 L nasal cannula. EYES: No jaundice or pallor. EARS, NOSE AND THROAT: No ear drainage noted. No nasal discharge. HEAD AND NECK: No scalp swelling and tenderness. No tenderness. CHEST AND LUNGS: No wheezing. No rhonchi. No coarse crackles. CARDIOVASCULAR: S1, S2 distinct. Normal rate, regular rhythm. ABDOMEN: Flabby, positive bowel sounds, soft, nondistended, nontender. EXTREMITIES: No joint swelling. No cellulitis. LABORATORY DATA: CBC: No new labs. No new chemistry. ASSESSMENT: 1. PULMONARY EMBOLISM, RIGHT LUNG, APPEARED TO BE STABLE . NO SIGNS OF BLEEDING. 2. COPD. 3. PLEURAL EFFUSION, RIGHT SIDE, PROBABLY FROM THE RIGHT CHEST CONTUSION. PLAN AND RECOMMENDATIONS: 1. Continue Xarelto. 2. Continue Advair 250 diskhaler 1 puff BID daily. 3. Continue Spiriva 1 capsule daily. 4. Albuterol inhaler as needed. 5. We will sign off today. If you have any questions, please feel free to call me. 6. Recommend pulmonary clinic followup in 2-3 weeks after hospital discharge. DICTATING PHYSICIAN: COLTEN LORENZO MD,TRINA,MPH [id number] [id number] PHY#: [id number] ID: [id number] JOB#: [id number] ACCT: [id number] cc: > [facility]
[2018-05-13] MEDS: RIVAROXABAN 15 MG TABLET PO SCH (09:55)
[2018-05-13] MEDS: PAROXETINE HCL 20 MG TABLET PO SCH (09:55)
[2018-05-13] MEDS: TRAMADOL HCL 50 MG TABLET PO PRN ×2 (09:56→15:46)
[2018-05-13] MEDS: PREDNISONE 5 MG TABLET PO SCH (09:56)
[2018-05-13] MEDS: TIOTROPIUM BROMIDE DPI 5 CAP/KIT (18 MCG/CAP) IH SCH (10:00)
[2018-05-13] MEDS: FLUTICASONE/SALMETEROL DISKUS 250-50 MCG/DOSE IH SCH (10:01)
[2018-05-13] MEDS: MEGESTROL ACETATE SUSP 400 MG/10 ML UDCUP PO SCH (10:01)
[2018-05-13] MEDS: LIDOCAINE 5% (700 MG) TRANSDERMAL ADH..PATCH TP SCH (10:10)
[2018-05-13] MEDS: LISINOPRIL 10 MG TABLET PO SCH (10:19)
[2018-05-13 15:07] VITALS: BP 153/71
== END 2018-05-13 16:04 | disposition home health service (06) | DRG 176 ==
LOC: ER 18:53 → EH 23:40 → 3W 05-08 12:00
PROVIDERS: ADMIT Family Medicine; ATTEND Family Medicine
PROC: 3E0F73Z Introduction of Anti-inflammatory into Respiratory Tract, Via Natural or Artificial Opening (ICD-10-PCS; principal; 2018-05-09)
DX: I26.99 Other pulmonary embolism without acute cor pulmonale (principal); N30.00 Acute cystitis without hematuria; E46 Unspecified protein-calorie malnutrition; Z68.1 Body mass index [BMI] 19.9 or less, adult; Z66 Do not resuscitate; R00.0 Tachycardia, unspecified; I10 Essential (primary) hypertension; B95.2 Enterococcus as the cause of diseases classified elsewhere; K44.9 Diaphragmatic hernia without obstruction or gangrene; M19.90 Unspecified osteoarthritis, unspecified site; J43.9 Emphysema, unspecified; I71.2 Thoracic aortic aneurysm, without rupture; I45.10 Unspecified right bundle-branch block; Z91.81 History of falling; Z79.899 Other long term (current) drug therapy; Z90.49 Acquired absence of other specified parts of digestive tract; Z90.710 Acquired absence of both cervix and uterus; Z88.6 Allergy status to analgesic agent; Z88.8 Allergy status to other drugs, medicaments and biological substances
CPT/HCPCS: 36415; 71045; 71275; 80048; 80053; 81001; 82550; 82553; 82803; 83880; 84484; 85025; 85027; 85379; 85610; 85730; 87040; 87086; 87088; 87186; 93005; 93010; 93306; 94640; 94799; 96365; 96366; 99291; J0290; J1644; J1956; J2270; J2405; J2550; J3490; J7030; J7512; J7620; S0164

== ENCOUNTER 2018-05-16 18:30 | Emergency (ER) | payer MEDICARE ==
[2018-05-16] MEDS ORDERED: HYDROMORPHONE HCL INJ/PF 2 MG/ML AMPULE IV ONE (19:14)
[2018-05-16] MEDS ORDERED: HALOPERIDOL LACTATE INJ 5 MG/1 ML VIAL IV ONE (19:19)
--- NOTE | 2018-05-16 19:20 | ER Document Report ---
ED General - General Chief Complaint: Shortness Of Breath Stated Complaint: DIFFICULTY BREATHING Time Seen by Provider: 05/16/18 18:37 Cannot obtain history due to: Unstable vital signs Notes: The patient is an 88 year old female with a past medical history of hypertension , recent diagnosis of bilateral pulmonary emboli, who presents in respiratory distress. Family reports that the patient has been rapidly deteriorating since being discharged home and has been in significant pain since discharge. They report that she frequently appears very short of breath and profoundly ill. They have been trying to get her into outpatient hospice since discharge but have been unable to do so. Today they were instructed to come to the emergency department by her general doctor for symptom control and transition to hospice care. The patient herself is unable to provide additional history other than that she knows she is dying. TRAVEL OUTSIDE OF THE [place] IN LAST 30 DAYS: No - Related Data Allergies/Adverse Reactions: buspirone [From BuSpar] Allergy (Intermediate, Verified 05/07/18 19:27) skakes uncontrollable ceftriaxone [From Rocephin] Allergy (Verified 05/11/18 14:15) codeine [Codeine] Allergy (Verified 05/07/18 19:27) adhesive tape Adverse Reaction (Intermediate, Verified 05/07/18 19:27) peels her skin off hydromorphone [From Dilaudid] Adverse Reaction (Intermediate, Verified 05/07/18 19:27) Hallucinations pregabalin [From Lyrica] Adverse Reaction (Intermediate, Verified 05/07/18 19:27 ) Blurred vision Past Medical History - General Information source: Patient, Relative - Social History Smoking Status: Former Smoker Chew tobacco use (# tins/day): No Frequency of alcohol use: None Drug Abuse: None Lives with: Family Family History: Reviewed & Not Pertinent Patient has suicidal ideation: No Patient has homicidal ideation: No - Past Medical History Cardiac Medical History: Reports: Hx Hypertension Pulmonary Medical History: Reports: Hx COPD Renal/ Medical History: Denies: Hx Peritoneal Dialysis GI Medical History: Reports: Hx Hiatal Hernia Musculoskeletal Medical History: Reports Hx Arthritis Psychiatric Medical History: Denies: Hx Depression Past Surgical History: Reports: Hx Appendectomy, Hx Cholecystectomy, Hx Hysterectomy, Hx Orthopedic Surgery - Left proximal femoral hemiarthroplasty - Immunizations Hx Diphtheria, Pertussis, Tetanus Vaccination: No Review of Systems - Review of Systems Notes: Constitutional: Negative for fever. HENT: Negative for sore throat. Eyes: Negative for visual changes. Cardiovascular: Negative for chest pain. Respiratory: Positive for shortness of breath. Gastrointestinal: Negative for abdominal pain, vomiting or diarrhea. Genitourinary: Negative for dysuria. Musculoskeletal: Positive for diffuse musculoskeletal pain Skin: Negative for rash. Neurological: Negative for headaches, weakness or numbness. 10 point ROS negative except as marked above and in HPI. Physical Exam - Vital signs Vitals: Pulse Ox 97 05/16/18 18:53 Notes: PHYSICAL EXAMINATION: GENERAL: Extremely frail, cachectic and appears to be in substantial pain in respiratory distress HEAD: Atraumatic, normocephalic. EYES: Pupils equal round and reactive to light, sclera anicteric, conjunctiva are normal. ENT: nares patent, oropharynx clear without exudates. Extremely dry mucous membranes. NECK: Normal range of motion LUNGS: Moderate respiratory distress, clear movement throughout. HEART: Regular tachycardia without murmurs ABDOMEN: Soft, nontender, normoactive bowel sounds. No guarding, no rebound. No masses appreciated. EXTREMITIES: no pitting or edema. No cyanosis. NEUROLOGICAL: No focal neurological deficits. Moves all extremities spontaneously PSYCH: Somewhat lethargic but oriented. SKIN: Warm, Dry, normal turgor, extensive bruising along the bilateral lower extremities Course - Re-evaluation Re-evalutation: 05/16/18 19:18 Patient presents actively dying. She is hypoxic, tachypnea, tachycardic, somewhat lethargic and in obvious pain. Family had been trying to get the patient into outpatient hospice but was unable to arrange this quickly and was instructed by their outpatient physician to come to the ER for symptom management. I have established with the patient who has capacity, is awake, and oriented 4 as well as her 2 daughters at the bedside that they do not wish for any additional interventions other than comfort measures only. We have reviewed that I will be giving her aggressive doses of pain medication and that this may expedite her passing. The patient and the family understand and wish for only comfort measures. I will begin to reassess the patient at regular intervals to ensure that her tachypnea, respiratory distress, and obvious physical pain diminish. 05/16/18 19:43 Patient is symptomatically much improved. I have ordered hydromorphone q20mp as well as low dose haloperidol 1mg. Family and patient state that she appears much more comfortable now. Will continue to reassess at regular intervals. 05/16/18 20:57 The patient appears to be well controlled overall although continues with some agonal breathing patterns. She appears to be approaching at this point. We will give an additional milligram of Dilaudid at this time. Will continue to reassess at regular intervals. Family remains at the bedside. Family is satisfied with level of symptom control. 05/16/18 21:15 I was called to the room as the patient was noted to be unresponsive and in asystole on the monitor. No pulse present. No heartbeat auscultated. Time of is 211005/17/18 03:45 - Vital Signs Vital signs: Temp Pulse Resp BP Pulse Ox 97.8 F 137 H 23 H 106/68 59 L 05/16/18 18:54 05/16/18 18:54 05/16/18 21:00 05/16/18 19:01 05/16/18 21:00 Critical Care Note - Critical Care Note Total time excluding time spent on procedures (mins): 36 Comments: Critical care time spent obtaining history from patient or surrogate, development of treatment plan with patient or surrogate, evaluation of patient' s response to treatment, examination of patient, ordering and performing treatments, re-evaluation of patient's condition, and review of old charts Discharge - Discharge Clinical Impression: Respiratory distress, Bilateral pulmonary embolism, Cachexia Disposition: Referrals: DIANE BARRIENTOS MD [Primary Care Provider] - Follow up as needed
[2018-05-16] MEDS: HYDROMORPHONE HCL INJ/PF 2 MG/ML AMPULE IV PRN ×2 (19:56→20:57)
[2018-05-16 21:44] VITALS: BP 106/68
== END 2018-05-16 23:25 | disposition expired ==
LOC: ER 18:30
DX: R06.03 Acute respiratory distress (principal); I26.99 Other pulmonary embolism without acute cor pulmonale; R64 Cachexia; M79.1 Myalgia; R06.02 Shortness of breath; R09.02 Hypoxemia; R00.0 Tachycardia, unspecified; I10 Essential (primary) hypertension; Z87.891 Personal history of nicotine dependence; J44.9 Chronic obstructive pulmonary disease, unspecified
CPT/HCPCS: 96376; 99291; 96374; 96375; J1630; J1170